=== PATIENT | female | born 1945 | race Asian ===

== ENCOUNTER 2017-08-28 10:08 | Emergency (ER) | payer OTHER, MEDICAID ==
[~2017-08-28] VITALS: Ht 167.6 cm; Wt 59.0 kg
[~2017-08-28 10:08] MED LIST: AMLO2.5T; CLOP75TA41; GABA-494 PO; NAPR375T3 PO; RALO60TA13 PO
[2017-08-28 11:06] VITALS: BP 133/74
[2017-08-28] MEDS ORDERED: KETOROLAC TROMETH 60MG/2ML VIAL IM ONE (11:15)
[2017-08-28] MEDS ORDERED: cefTRIAXone SOD 1,000 MG VL IM ONE (11:15)
== END 2017-08-28 11:28 | disposition home or self-care (01) ==
LOC: ER 10:08
DX: L03.211 Cellulitis of face (principal); K02.9 Dental caries, unspecified; I25.10 Atherosclerotic heart disease of native coronary artery without angina pectoris; I10 Essential (primary) hypertension; Z82.49 Family history of ischemic heart disease and other diseases of the circulatory system
CPT/HCPCS: 96372; 99284; J0696; J1885

== ENCOUNTER 2017-12-10 19:08 | Inpatient (IN) | payer OTHER, MEDICAID ==
[~2017-12-10] VITALS: Ht 152.4 cm; Wt 60.1 kg
[~2017-12-10 19:08] MED LIST changes: -GABA-494 PO; +GABA100C9 PO; +NAPR375T27 PO; -NAPR375T3 PO
[2017-12-10 20:09] LABS: Basophils # (auto) 0.1 uL; Basophils % (auto) 0.5 % (0.0-2.0); Eosinophils # (auto) 0.2 uL; Eosinophils % (auto) 1.4 % (0.0-7.0); Hematocrit 41.2 % (36.0-46.0); Hemoglobin 13.6 g/dL (12.2-16.2); Lymphocytes # (auto) 1.2 uL; Lymphocytes % (auto) 10.7 % (10.0-50.0); Mean Corpuscular Hemoglobin 32.9 pg (28.0-32.0); Mean Corpuscular Hgb Conc. 33.1 g/dL (32.0-36.0); Mean Corpuscular Volume 99.3 fL (80.0-100.0); Monocytes # (auto) 0.7 uL; Monocytes % (auto) 6.6 % (0.0-12.0); Neutrophils # (auto) 9.1 uL; Neutrophils % (auto) 80.8 % (37.0-80.0); Platelet Count (auto) 337 10^3/uL (140-450); Red Blood Cells 4.14 10^6/uL (4.0-5.20); Red Cell Distribution Width 15.6 % (11.8-14.3); White Blood Cell 11.2 10^3/uL (4.4-10.8)
[2017-12-10 20:24] LABS: Urine Bacteria NONE SEEN /hpf (None Seen); Urine Blood 3+ /uL (Negative); Urine WBC 67 /hpf (0 - 5)
[2017-12-10 20:24] LABS: Alanine Aminotransferase 21 U/L (13-56); Albumin 3.7 g/dL (3.4-5.0); Alkaline Phosphatase 97 U/L (45-117); Anion Gap 11 (5-15); Aspartate Aminotransferase 17 U/L (15-37); BUN/Creatinine Ratio 30.6; Bilirubin, Total 0.4 mg/dL (0.2-1.0); Blood Urea Nitrogen 26 mg/dL (7-18); Calcium 8.4 mg/dL (8.5-10.1); Carbon Dioxide 25 mmol/L (21-32); Chloride 105 mmol/L (98-107); GFR African American 85 mL/min; GFR Non-African American 70 mL/min; Glucose 178 mg/dL (74-106); Potassium 4.4 mmol/L (3.5-5.1); Sodium 141 mmol/L (136-145); Total Protein 8.1 g/dL (6.4-8.2)
[2017-12-11] MEDS ORDERED: SODIUM CHLORIDE 0.9% 1,000 ML IV ONE (07:41)
[2017-12-11] MEDS ORDERED: cefTRIAXone 1GM/10ml IVPUSH 10 ML IV ONE ×2 (07:45→11:00)
[2017-12-11] MEDS: SODIUM CHLORIDE 0.9% 1,000 ML IV SCH ×2 (10:53→21:43)
[2017-12-11] MEDS ORDERED: MORPHINE SULFATE 4 MG/ML SYR/VIAL IV PRN ×2 (11:00)
[2017-12-11] MEDS ORDERED: ALBUTEROL SULF 2.5 MG/0.5ML(0.5%) NEB SOLN NEB PRN (11:00)
[2017-12-11] MEDS ORDERED: NITROGLYCERIN 0.4 MG SL TAB SL PRN (11:00)
[2017-12-11] MEDS: FAMOTIDINE (10MG/ML) 2ML VL IV SCH ×2 (11:00→21:43)
[2017-12-11] MEDS ORDERED: ACETAMINOPHEN 500 MG TAB PO PRN (11:00)
[2017-12-11] MEDS ORDERED: TEMAZEPAM 15 MG CAP PO PRN (11:00)
[2017-12-11] MEDS ORDERED: DEXTROSE (50%) 50ML SYRG IV PRN (11:00)
[2017-12-11] MEDS ORDERED: HYDROcodone-ACET 5/325MG TAB PO PRN (11:00)
[2017-12-11] MEDS ORDERED: LORazepam 0.5 MG TAB PO PRN (11:00)
[2017-12-11] MEDS ORDERED: PROMETHAZINE HCL 25 MG/ML 1ML IV PRN (11:00)
[2017-12-11] MEDS: AZITHROMYCIN 500MG/ 250ML 250 ML IV SCH (11:07)
[2017-12-11] MEDS: InsuLIN REG 1unit/0.01ml Soln (100units/ml) SC SCH ×3 (11:30→21:44)
[2017-12-11] MEDS: ACCU-CHEK COMFORT CURVE STRIP VI SCH ×3 (11:30→21:44)
[2017-12-11 12:13] LABS: Partial Thromboplastin Time 23.3 sec (22.64-33.71); Prothrombin Time 10.9 sec (9.37-12.3)
[2017-12-11 14:46] VITALS: BP 131/96
[2017-12-11] MEDS ORDERED: PANTOPRAZOLE 40 MG TAB PO ONE (19:00)
[2017-12-11 20:30] VITALS: BP 157/92
[2017-12-11 21:56] VITALS: BP 157/92
[2017-12-12] MEDS ORDERED: ASPI81TA27 PO (00:15)
[2017-12-12] MEDS ORDERED: OMEP20CA74 PO (00:15)
[2017-12-12] MEDS ORDERED: METF-370 PO (00:15)
[2017-12-12 05:03] VITALS: BP 134/76
[2017-12-12] MEDS: SODIUM CHLORIDE 0.9% 1,000 ML IV SCH ×3 (06:25→13:30)
[2017-12-12] MEDS: ACCU-CHEK COMFORT CURVE STRIP VI SCH ×4 (06:25→21:50)
[2017-12-12] MEDS: InsuLIN REG 1unit/0.01ml Soln (100units/ml) SC SCH ×4 (06:25→21:54)
[2017-12-12 06:35] LABS: Basophils # (auto) 0 uL; Basophils % (auto) 0.9 % (0.0-2.0); Eosinophils # (auto) 0.1 uL; Eosinophils % (auto) 3.3 % (0.0-7.0); Hematocrit 37.8 % (36.0-46.0); Hemoglobin 12.7 g/dL (12.2-16.2); Lymphocytes # (auto) 1.2 uL; Lymphocytes % (auto) 25.8 % (10.0-50.0); Mean Corpuscular Hemoglobin 33.3 pg (28.0-32.0); Mean Corpuscular Hgb Conc. 33.6 g/dL (32.0-36.0); Mean Corpuscular Volume 99.1 fL (80.0-100.0); Monocytes # (auto) 0.5 uL; Monocytes % (auto) 10.4 % (0.0-12.0); Neutrophils # (auto) 2.7 uL; Neutrophils % (auto) 59.6 % (37.0-80.0); Nucleated Red Blood Cells % 0.2 %; Platelet Count (auto) 275 10^3/uL (140-450); Red Blood Cells 3.82 10^6/uL (4.0-5.20); Red Cell Distribution Width 15.3 % (11.8-14.3); White Blood Cell 4.5 10^3/uL (4.4-10.8)
[2017-12-12 06:49] LABS: BUN/Creatinine Ratio 22.1; Bilirubin, Total 0.9 mg/dL (0.2-1.0); Calcium 8.1 mg/dL (8.5-10.1); Potassium 3.9 mmol/L (3.5-5.1); Total Protein 6.7 g/dL (6.4-8.2)
[2017-12-12 09:00] VITALS: BP 130/82
[2017-12-12] MEDS: PANTOPRAZOLE 40 MG TAB PO SCH (09:40)
[2017-12-12] MEDS: cefTRIAXone 1GM/10ml IVPUSH 10 ML IV SCH (09:40)
[2017-12-12] MEDS: GABAPENTIN 300 MG CAP PO SCH (09:40)
[2017-12-12] MEDS: amLODIPine BESYLATE 5 MG TAB PO SCH (09:41)
[2017-12-12] MEDS: AZITHROMYCIN 500MG/ 250ML 250 ML IV SCH (09:42)
[2017-12-12] MEDS: RALOXIFENE HCL 60 MG TAB PO SCH (09:43)
[2017-12-12] MEDS: FAMOTIDINE (10MG/ML) 2ML VL IV SCH ×2 (10:13→21:48)
[2017-12-12 12:53] VITALS: BP 118/86
[2017-12-12 17:53] VITALS: BP 142/79
[2017-12-12 21:37] VITALS: BP 133/83
[2017-12-13] MEDS ORDERED: APIX5TAB PO (00:39)
[2017-12-13] MEDS: SODIUM CHLORIDE 0.9% 1,000 ML IV SCH (02:02)
[2017-12-13 05:00] VITALS: BP 121/69
[2017-12-13 05:31] LABS: Basophils # (auto) 0.1 uL; Basophils % (auto) 0.9 % (0.0-2.0); Eosinophils # (auto) 0.2 uL; Eosinophils % (auto) 2.6 % (0.0-7.0); Hematocrit 39.3 % (36.0-46.0); Hemoglobin 12.9 g/dL (12.2-16.2); Lymphocytes # (auto) 1.6 uL; Lymphocytes % (auto) 25.9 % (10.0-50.0); Mean Corpuscular Hemoglobin 32.6 pg (28.0-32.0); Mean Corpuscular Hgb Conc. 32.8 g/dL (32.0-36.0); Mean Corpuscular Volume 99.4 fL (80.0-100.0); Monocytes # (auto) 0.5 uL; Monocytes % (auto) 8.3 % (0.0-12.0); Neutrophils # (auto) 3.8 uL; Neutrophils % (auto) 62.3 % (37.0-80.0); Nucleated Red Blood Cells % 0.1 %; Platelet Count (auto) 275 10^3/uL (140-450); Red Blood Cells 3.96 10^6/uL (4.0-5.20); Red Cell Distribution Width 15.4 % (11.8-14.3); White Blood Cell 6.1 10^3/uL (4.4-10.8)
[2017-12-13 05:56] LABS: BUN/Creatinine Ratio 30.9; Calcium 8.5 mg/dL (8.5-10.1); Magnesium 2.4 mg/dL (1.6-2.6)
[2017-12-13] MEDS: ACCU-CHEK COMFORT CURVE STRIP VI SCH ×2 (06:38→11:30)
[2017-12-13] MEDS: InsuLIN REG 1unit/0.01ml Soln (100units/ml) SC SCH ×2 (06:38→11:30)
[2017-12-13 07:24] VITALS: BP 123/84
[2017-12-13] MEDS: amLODIPine BESYLATE 5 MG TAB PO SCH ×2 (10:00→10:30)
[2017-12-13] MEDS: FAMOTIDINE (10MG/ML) 2ML VL IV SCH (10:00)
[2017-12-13] MEDS: GABAPENTIN 300 MG CAP PO SCH (10:30)
[2017-12-13] MEDS: RALOXIFENE HCL 60 MG TAB PO SCH (10:31)
[2017-12-13] MEDS: cefTRIAXone 1GM/10ml IVPUSH 10 ML IV SCH (10:31)
[2017-12-13] MEDS: PANTOPRAZOLE 40 MG TAB PO SCH (10:31)
[2017-12-13] MEDS ORDERED: LEVO500T21 PO (11:16)
[2017-12-13] MEDS ORDERED: SACC250C PO (11:16)
[2017-12-13 11:42] VITALS: BP 123/84
[2017-12-13 13:34] VITALS: BP 153/87
== END 2017-12-13 14:28 | disposition home or self-care (01) | DRG 872 ==
LOC: ER 19:08 → TELE 19:09 → TELE-WESTW 12-11 19:54
PROVIDERS: ADMIT Internal Medicine; ATTEND Internal Medicine
DX: A41.51 Sepsis due to Escherichia coli [E. coli] (principal); E11.65 Type 2 diabetes mellitus with hyperglycemia; I48.91 Unspecified atrial fibrillation; N12 Tubulo-interstitial nephritis, not specified as acute or chronic; E78.5 Hyperlipidemia, unspecified; I25.10 Atherosclerotic heart disease of native coronary artery without angina pectoris; K21.9 Gastro-esophageal reflux disease without esophagitis; K59.01 Slow transit constipation; K57.30 Diverticulosis of large intestine without perforation or abscess without bleeding; R31.9 Hematuria, unspecified; F41.9 Anxiety disorder, unspecified; G47.00 Insomnia, unspecified; I11.9 Hypertensive heart disease without heart failure; I83.93 Asymptomatic varicose veins of bilateral lower extremities; Z82.49 Family history of ischemic heart disease and other diseases of the circulatory system; Z83.3 Family history of diabetes mellitus; Z79.82 Long term (current) use of aspirin; Z87.11 Personal history of peptic ulcer disease; Z79.899 Other long term (current) drug therapy
CPT/HCPCS: 36415; 71045; 71250; 74176; 76775; 80048; 80053; 81001; 82962; 83036; 83735; 84484; 85025; 85610; 85730; 87040; 87086; 87088; 87186; 93005; 94761; 96361; 96365; 96375; 97163; J1815; J3490

== ENCOUNTER 2019-06-24 10:14 | Emergency (ER) | payer OTHER, MEDICAID ==
[~2019-06-24] VITALS: Ht 162.6 cm; Wt 60.8 kg
[~2019-06-24 10:14] MED LIST changes: -AMLO2.5T; +AMLO2.5T7; +APIX5TAB PO; +ASPI-404 PO; -CLOP75TA41; +LEVO500T21 PO; +METF-370 PO; -NAPR375T27 PO; +OMEP20CA74 PO; +SACC250C PO
[2019-06-24 10:27] VITALS: BP 124/85
[2019-06-24] MEDS ORDERED: KETOROLAC TROMETH 60MG/2ML VIAL IM ONE (12:45)
[2019-06-24] MEDS ORDERED: IBUPROFEN 600 MG TAB PO ONE (12:45)
== END 2019-06-24 13:13 | disposition home or self-care (01) ==
LOC: ER 10:14
DX: M10.072 Idiopathic gout, left ankle and foot (principal); I25.10 Atherosclerotic heart disease of native coronary artery without angina pectoris; I10 Essential (primary) hypertension; Z79.82 Long term (current) use of aspirin; Z79.899 Other long term (current) drug therapy; Z79.84 Long term (current) use of oral hypoglycemic drugs
CPT/HCPCS: 73630

== ENCOUNTER 2019-09-26 11:14 | Emergency (ER) | payer OTHER, MEDICAID ==
[~2019-09-26] VITALS: Ht 162.6 cm; Wt 57.2 kg
[2019-09-26 11:52] LABS: Basophils # (auto) 0 uL; Basophils % (auto) 0.4 % (0.0-2.0); Eosinophils # (auto) 0 uL; Eosinophils % (auto) 0.4 % (0.0-7.0); Hematocrit 39.2 % (36.0-46.0); Hemoglobin 13.2 g/dL (12.2-16.2); Lymphocytes # (auto) 0.8 uL; Lymphocytes % (auto) 14.7 % (10.0-50.0); Mean Corpuscular Hemoglobin 33.5 pg (28.0-32.0); Mean Corpuscular Hgb Conc. 33.6 g/dL (32.0-36.0); Mean Corpuscular Volume 99.7 fL (80.0-100.0); Monocytes # (auto) 0.2 uL; Neutrophils # (auto) 4.3 uL; Neutrophils % (auto) 80.5 % (37.0-80.0); Platelet Count (auto) 254 10^3/uL (140-450); Red Blood Cells 3.93 10^6/uL (4.0-5.20); Red Cell Distribution Width 15.7 % (11.8-14.3); White Blood Cell 5.3 10^3/uL (4.4-10.8)
[2019-09-26 12:08] LABS: Albumin 3.7 g/dL (3.4-5.0); Anion Gap 8 (5-15); Blood Urea Nitrogen 15 mg/dL (7-18); Calcium 8.5 mg/dL (8.5-10.1); Carbon Dioxide 23 mmol/L (21-32); Chloride 110 mmol/L (98-107); Glucose 204 mg/dL (74-106); Potassium 3.6 mmol/L (3.5-5.1); Sodium 141 mmol/L (136-145)
[2019-09-26 12:12] LABS: INR 1.03 (0.9-1.15); Partial Thromboplastin Time 23.3 sec (23.64-32.05)
[2019-09-26 12:13] LABS: Alanine Aminotransferase 19 U/L (13-56); Alkaline Phosphatase 59 U/L (45-117); Aspartate Aminotransferase 14 U/L (15-37); Bilirubin, Total 0.8 mg/dL (0.2-1.0); GFR African American 91 mL/min; GFR Non-African American 76 mL/min; Total Protein 7.7 g/dL (6.4-8.2)
[2019-09-26 12:47] LABS: Urine Bacteria NONE SEEN /hpf (None Seen); Urine Blood TRACE /uL (Negative); Urine Specific Gravity 1.005 (1.001-1.035); Urine WBC 1 /hpf (0 - 5)
[2019-09-26] MEDS ORDERED: SODIUM CHLORIDE 0.9% 500 ML IVB ONE (15:30)
[2019-09-26] MEDS ORDERED: SODIUM CHLORIDE 0.9% 1,000 ML IV ONE (15:30)
[2019-09-26 15:39] VITALS: BP 156/90
[2019-09-26] MEDS ORDERED: MECLIZINE HCL 25 MG TAB PO ONE (16:30)
== END 2019-09-26 17:22 | disposition home or self-care (01) ==
LOC: EDUNIT# 11:14 → ER 11:14
DX: I48.91 Unspecified atrial fibrillation (principal); R42 Dizziness and giddiness; E11.65 Type 2 diabetes mellitus with hyperglycemia; K21.9 Gastro-esophageal reflux disease without esophagitis; I10 Essential (primary) hypertension
CPT/HCPCS: 36415; 70450; 71046; 80053; 81001; 82962; 83735; 84443; 84484; 85025; 85610; 85730; 93005; 96360

== ENCOUNTER 2019-10-10 12:56 | Emergency (ER) | payer OTHER, MEDICAID ==
[~2019-10-10] VITALS: Ht 160 cm; Wt 54.4 kg
[2019-10-10 13:39] VITALS: BP 145/85
[2019-10-10] MEDS ORDERED: ACETAMINOPHEN 500 MG TAB PO ONE (15:45)
== END 2019-10-10 16:05 | disposition home or self-care (01) ==
LOC: ER 12:56
DX: S16.1XXA Strain of muscle, fascia and tendon at neck level, initial encounter (principal); M47.892 Other spondylosis, cervical region; E11.9 Type 2 diabetes mellitus without complications; I10 Essential (primary) hypertension; X58.XXXA Exposure to other specified factors, initial encounter; Y93.89 Activity, other specified; Y99.8 Other external cause status; Y92.89 Other specified places as the place of occurrence of the external cause
CPT/HCPCS: 72040

== ENCOUNTER 2020-12-31 13:07 | Emergency (ER) | payer OTHER, MEDICAID ==
[~2020-12-31] VITALS: Ht 152.4 cm; Wt 59.0 kg
[~2020-12-31 13:07] MED LIST changes: +AMLO-483; -AMLO2.5T7; -ASPI-404 PO; +ASPI-543 PO; -LEVO500T21 PO; +LEVO500T31 PO
[2020-12-31 13:08] VITALS: BP 163/93
[2020-12-31] MEDS ORDERED: traMADol HCL 50 MG TAB PO ONE (14:45)
== END 2020-12-31 15:04 | disposition home or self-care (01) ==
LOC: ER 13:07
DX: G24.3 Spasmodic torticollis (principal); M50.320 Other cervical disc degeneration, mid-cervical region, unspecified level; E11.9 Type 2 diabetes mellitus without complications; K21.9 Gastro-esophageal reflux disease without esophagitis; I10 Essential (primary) hypertension
CPT/HCPCS: 72040

== ENCOUNTER 2021-06-26 10:09 | Emergency (ER) | payer OTHER, MEDICAID ==
[~2021-06-26] VITALS: Ht 165.1 cm; Wt 56.7 kg
[2021-06-26 12:20] VITALS: BP 161/94
[2021-06-26] MEDS ORDERED: ONDANSETRON ODT 4 MG TAB PO ONE (13:00)
[2021-06-26] MEDS ORDERED: TETANUS-DIPTH-ACEL PERTUSSIS 0.5ML SYR Tdap IM ONE (13:00)
[2021-06-26] MEDS ORDERED: ACETAMINOPHEN/CODEINE#3 (300/30mg) TAB PO ONE (13:00)
[2021-06-26] MEDS ORDERED: cefTRIAXone SOD 1,000 MG VL IM ONE (13:00)
[2021-06-26] MEDS ORDERED: LIDOCAINE 1% HCL (LOCAL ANESTH.) INJ 20ML MDV ONE (13:23)
== END 2021-06-26 13:59 | disposition home or self-care (01) ==
LOC: ER 10:09
DX: L03.114 Cellulitis of left upper limb (principal); E11.9 Type 2 diabetes mellitus without complications; K21.9 Gastro-esophageal reflux disease without esophagitis; I10 Essential (primary) hypertension; Z79.82 Long term (current) use of aspirin; Z79.899 Other long term (current) drug therapy
CPT/HCPCS: 73110; 73130; 73200; 90471; 90715; 96372; 99284; J0696; J2001; Q0162

== ENCOUNTER 2022-10-17 10:10 | Emergency (ER) | payer OTHER, MEDICAID ==
[~2022-10-17] VITALS: Ht 160 cm; Wt 58.1 kg
[2022-10-17 16:27] VITALS: BP 163/94
[2022-10-17] MEDS ORDERED: HYDR-4902 PO (16:35)
== END 2022-10-17 16:32 | disposition home or self-care (01) ==
LOC: ER 10:10
DX: M16.11 Unilateral primary osteoarthritis, right hip (principal); K59.00 Constipation, unspecified; E11.9 Type 2 diabetes mellitus without complications; K21.9 Gastro-esophageal reflux disease without esophagitis; I10 Essential (primary) hypertension
CPT/HCPCS: 72192; 82962

== ENCOUNTER 2023-01-25 13:52 | Emergency (ER) | payer OTHER, MEDICAID ==
[~2023-01-25] VITALS: Ht 167.6 cm; Wt 62.0 kg
[~2023-01-25 13:52] MED LIST changes: +HYDR-4902 PO
[2023-01-25] MEDS ORDERED: HYDROcodone-ACET 10/325MG TAB PO ONE (14:30)
[2023-01-25] MEDS ORDERED: ACET-1158 PO (15:41)
[2023-01-25 19:05] VITALS: BP 146/81
== END 2023-01-25 19:07 | disposition home or self-care (01) ==
LOC: ER 13:52
DX: M47.816 Spondylosis without myelopathy or radiculopathy, lumbar region (principal); M16.12 Unilateral primary osteoarthritis, left hip; I10 Essential (primary) hypertension; E11.9 Type 2 diabetes mellitus without complications; K21.9 Gastro-esophageal reflux disease without esophagitis; Z79.82 Long term (current) use of aspirin; Z79.899 Other long term (current) drug therapy
CPT/HCPCS: 73502

== ENCOUNTER 2023-09-10 13:38 | Inpatient (IN) | payer OTHER, MEDICAID ==
[~2023-09-10] VITALS: Ht 157.5 cm; Wt 60.3 kg
[~2023-09-10 13:38] MED LIST changes: +ACET500T58 PO; -AMLO-483; +AMLO1TAB21; +GABA-1308 PO; -GABA100C9 PO; -RALO60TA13 PO; +RALO60TA14 PO
[2023-09-10 14:58] LABS: Basophils # (auto) 0.1 10 ^3/uL (0-0.2); Eosinophils # (auto) 0 10 ^3/uL (0-0.8); Eosinophils % (auto) 0.5 % (0.0-7.0); Hemoglobin 12.2 g/dL (12.2-16.2); Lymphocytes # (auto) 0.9 10 ^3/uL (0.4-5.4); Lymphocytes % (auto) 10.8 % (10.0-50.0); Mean Corpuscular Hemoglobin 32.8 pg (28.0-32.0); Mean Corpuscular Hgb Conc. 32.8 g/dL (32.0-36.0); Monocytes # (auto) 0.6 10 ^3/uL (0-1.3); Monocytes % (auto) 6.9 % (0.0-12.0); Neutrophils # (auto) 6.4 10 ^3/uL (1.6-8.6); Neutrophils % (auto) 80.8 % (37.0-80.0); Nucleated Red Blood Cells % 0.1 %; Red Cell Distribution Width 15.5 % (11.8-14.3); White Blood Cell 7.9 10^3/uL (4.4-10.8)
[2023-09-10 15:11] LABS: INR 1.02 (0.9-1.15); Partial Thromboplastin Time 22.1 SEC (24.5-34.5); Prothrombin Time 10.7 sec (9.3-11.8)
[2023-09-10 15:14] LABS: Alanine Aminotransferase 13 U/L (7-40); Albumin 4.1 g/dL (3.2-4.8); Alkaline Phosphatase 53 U/L (46-116); Anion Gap 11 (5-15); Aspartate Aminotransferase 16 U/L (13-40); Bilirubin, Total 0.6 mg/dL (0.2-1.0); Blood Urea Nitrogen 24 mg/dL (9-23); Calcium 9.5 mg/dL (8.5-10.1); Carbon Dioxide 23 mmol/L (20-30); Chloride 103 mmol/L (98-107); Glucose 311 mg/dL (74-106); Potassium 4.4 mmol/L (3.5-5.1); Sodium 137 mmol/L (136-145); Total Protein 6.9 g/dL (5.7-8.2)
[2023-09-10 15:41] LABS: Magnesium 1.8 mg/dL (1.6-2.6)
[2023-09-10] MEDS ORDERED: DEXTROSE (50%) 50ML SYRG IV PRN ×2 (21:45→23:15)
[2023-09-10] MEDS ORDERED: ONDANSETRON HCL 4 MG/2 ML VIAL IV PRN ×2 (21:45→23:15)
[2023-09-10] MEDS ORDERED: ACETAMINOPHEN 325 MG TAB PO PRN ×2 (21:45→23:15)
[2023-09-10] MEDS ORDERED: APIXABAN 5 MG TAB PO SCH (22:00)
[2023-09-10] MEDS ORDERED: HYDROcodone-ACET 5/325MG TAB PO PRN (23:15)
[2023-09-10] MEDS ORDERED: ENOXAPARIN SOD 60 MG/0.6 ML SYRINGE SC SCH (23:30)
[2023-09-11] VITALS (7 sets, daily range): BP systolic 130–157; BP diastolic 75–103; PULSE 79–100; RESP 16–19; TEMP 96.9–98.5; O2SAT 95–100
[2023-09-11] MEDS ORDERED: ACCU-CHEK COMFORT CURVE STRIP VI SCH
[2023-09-11] MEDS ORDERED: InsuLIN REG 1unit/0.01ml Soln (100units/ml) SC SCH
[2023-09-11] MEDS ORDERED: ENOXAPARIN SOD 60 MG/0.6 ML SYRINGE SC ONE (02:33)
[2023-09-11] MEDS ORDERED: METF-370 PO (03:20)
[2023-09-11] MEDS: InsuLIN REG 1unit/0.01ml Soln (100units/ml) SC SCH ×4 (06:44→22:51)
[2023-09-11] MEDS: ACCU-CHEK COMFORT CURVE STRIP VI SCH ×4 (06:45→22:00)
[2023-09-11 09:06] LABS: Basophils # (auto) 0.1 10 ^3/uL (0-0.2); Basophils % (auto) 1.7 % (0.0-2.0); Eosinophils # (auto) 0.2 10 ^3/uL (0-0.8); Eosinophils % (auto) 2.8 % (0.0-7.0); Hematocrit 37.4 % (36.0-46.0); Hemoglobin 12.3 g/dL (12.2-16.2); Lymphocytes # (auto) 1.2 10 ^3/uL (0.4-5.4); Lymphocytes % (auto) 19.7 % (10.0-50.0); Mean Corpuscular Hemoglobin 32.5 pg (28.0-32.0); Mean Corpuscular Volume 98.6 fL (80.0-100.0); Monocytes # (auto) 0.7 10 ^3/uL (0-1.3); Monocytes % (auto) 10.7 % (0.0-12.0); Neutrophils % (auto) 65.1 % (37.0-80.0); Nucleated Red Blood Cells % 0.2 %; Red Blood Cells 3.79 10^6/uL (4.0-5.20); Red Cell Distribution Width 15.3 % (11.8-14.3); White Blood Cell 6.2 10^3/uL (4.4-10.8)
[2023-09-11] MEDS ORDERED: amLODIPine BESYLATE 5 MG TAB PO SCH ×3 (10:00→10:21)
[2023-09-11] MEDS ORDERED: ASPirin 81 mg TAB PO SCH (10:00)
[2023-09-11 10:05] LABS: Alanine Aminotransferase 10 U/L (7-40); Albumin 3.8 g/dL (3.2-4.8); Alkaline Phosphatase 51 U/L (46-116); Anion Gap 9 (5-15); Aspartate Aminotransferase < 8 U/L (13-40); BUN/Creatinine Ratio 19.2 (10.0-20.0); Blood Urea Nitrogen 14 mg/dL (9-23); Calcium 9.1 mg/dL (8.5-10.1); Carbon Dioxide 25 mmol/L (20-30); Chloride 107 mmol/L (98-107); Glucose 217 mg/dL (74-106); Potassium 3.9 mmol/L (3.5-5.1); Sodium 141 mmol/L (136-145)
[2023-09-11 10:06] LABS: Bilirubin, Total 0.8 mg/dL (0.2-1.0); Total Protein 6.6 g/dL (5.7-8.2)
[2023-09-11] MEDS: ENOXAPARIN SOD 60 MG/0.6 ML SYRINGE SC SCH ×3 (10:22→22:54)
[2023-09-11] MEDS ORDERED: ceFAZolin 2 GM/D5W100ml 100 ML IV ONE (18:05)
[2023-09-11] MEDS ORDERED: fentaNYL CITRATE 100 MCG/2 ML VL ONE (18:38)
[2023-09-11] MEDS ORDERED: MIDAZOLAM HCL 2MG/2ML 2ml VIAL (1mg/ml) ONE (18:38)
[2023-09-11] MEDS ORDERED: HEPARIN SODIUM (PORCINE) 5000 UNITS/ML 1ML VIAL ONE (18:57)
[2023-09-11] MEDS ORDERED: MIDAZOLAM HCL 2MG/2ML 2ml VIAL (1mg/ml) IV PRN (19:15)
[2023-09-11] MEDS ORDERED: LABETALOL HCL 5 MG/ML 4ML SYRINGE IV PRN (19:15)
[2023-09-11] MEDS ORDERED: ACCU-CHEK COMFORT CURVE STRIP VI ONE (19:15)
[2023-09-11] MEDS ORDERED: MORPHINE SULFATE 4 MG/ML SYR/VIAL IV PRN (19:15)
[2023-09-11] MEDS ORDERED: ePHEDrine SULFATE 50 MG/ML AMP IV PRN (19:15)
[2023-09-11] MEDS ORDERED: ONDANSETRON HCL 4 MG/2 ML VIAL IV PRN (19:15)
[2023-09-11] MEDS ORDERED: IOHEXOL 300 MG/ML 100ML BOTTLE IJ ONE (19:25)
[2023-09-11] MEDS ORDERED: DexAMETHasone SOD PHOS 10MG/1ML VIAL INJ ONE (20:17)
[2023-09-11] MEDS: HYDROmorphone HCL 2 MG/ML VL/or syr IV PRN ×3 (20:45→21:28)
[2023-09-11] MEDS: METOPROLOL TARTRATE 25 MG TAB PO SCH (22:58)
[2023-09-12] VITALS (7 sets, daily range): BP systolic 101–169; BP diastolic 69–85; PULSE 74–89; RESP 16–18; TEMP 96.9–99.2; O2SAT 92–99
[2023-09-12] MEDS: hydrALAZINE HCL 20 MG/ML VL IV PRN (04:43)
[2023-09-12] MEDS: InsuLIN REG 1unit/0.01ml Soln (100units/ml) SC SCH ×4 (06:29→21:25)
[2023-09-12] MEDS: ACCU-CHEK COMFORT CURVE STRIP VI SCH ×4 (06:32→21:33)
[2023-09-12] MEDS: OXYCODONE W/ ACETAMINOPHEN 5/325MG TABLET PO PRN (11:20)
[2023-09-12] MEDS: METOPROLOL TARTRATE 25 MG TAB PO SCH ×2 (11:20→21:28)
[2023-09-12] MEDS: ENOXAPARIN SOD 60 MG/0.6 ML SYRINGE SC SCH ×2 (11:21→21:27)
[2023-09-13 05:00] VITALS: BP 131/59; PULSE 70; RESP 16; TEMP 98.1; O2SAT 98
[2023-09-13] MEDS: InsuLIN REG 1unit/0.01ml Soln (100units/ml) SC SCH ×4 (06:47→21:58)
[2023-09-13] MEDS: ACCU-CHEK COMFORT CURVE STRIP VI SCH ×4 (06:47→21:59)
[2023-09-13 08:00] VITALS: BP 147/76; PULSE 64; PULSE 71; RESP 20; TEMP 98.4; O2SAT 98
[2023-09-13] MEDS: ENOXAPARIN SOD 60 MG/0.6 ML SYRINGE SC SCH ×2 (09:58→21:58)
[2023-09-13] MEDS: METOPROLOL TARTRATE 25 MG TAB PO SCH ×2 (09:59→21:57)
[2023-09-13] MEDS: OXYCODONE W/ ACETAMINOPHEN 5/325MG TABLET PO PRN ×2 (09:59→22:06)
[2023-09-13] MEDS: hydrALAZINE HCL 20 MG/ML VL IV PRN (11:51)
[2023-09-13 12:00] VITALS: BP 179/88; PULSE 103; PULSE 64; RESP 18; TEMP 100.5; O2SAT 99
[2023-09-13 16:00] VITALS: BP 101/60; PULSE 84; RESP 20; TEMP 97.5; O2SAT 97
[2023-09-13 20:00] VITALS: BP 136/68; PULSE 77; RESP 16; TEMP 98.4
[2023-09-13 21:51] VITALS: BP 136/68; PULSE 77; RESP 16; TEMP 98.4; O2SAT 99
[2023-09-14 05:00] VITALS: BP 145/75; PULSE 77; RESP 16; TEMP 97.9; O2SAT 100
[2023-09-14] MEDS: InsuLIN REG 1unit/0.01ml Soln (100units/ml) SC SCH ×4 (06:34→22:00)
[2023-09-14] MEDS: ACCU-CHEK COMFORT CURVE STRIP VI SCH ×4 (06:35→22:21)
[2023-09-14 08:00] VITALS: BP 136/70; PULSE 79; PULSE 85; RESP 16; TEMP 98.2; TEMP 99.2; O2SAT 99
[2023-09-14] MEDS: METOPROLOL TARTRATE 25 MG TAB PO SCH ×2 (08:25→22:20)
[2023-09-14] MEDS: OXYCODONE W/ ACETAMINOPHEN 5/325MG TABLET PO PRN ×2 (08:25→22:20)
[2023-09-14] MEDS: APIXABAN 5 MG TAB PO SCH ×2 (10:25→22:19)
[2023-09-14 12:48] VITALS: BP 139/75; PULSE 69; RESP 16; TEMP 98.1; O2SAT 97
[2023-09-14 20:00] VITALS: BP 136/68; PULSE 77; PULSE 87; PULSE 89; RESP 16; TEMP 98.4
[2023-09-14 22:00] VITALS: BP 142/93; PULSE 82; RESP 17; TEMP 98.6; O2SAT 95
[2023-09-15 05:00] VITALS: BP 148/74; PULSE 79; RESP 17; TEMP 98.3; O2SAT 91
[2023-09-15] MEDS: ACCU-CHEK COMFORT CURVE STRIP VI SCH ×3 (06:08→17:00)
[2023-09-15] MEDS: InsuLIN REG 1unit/0.01ml Soln (100units/ml) SC SCH ×3 (06:09→17:00)
[2023-09-15] MEDS: OXYCODONE W/ ACETAMINOPHEN 5/325MG TABLET PO PRN ×2 (06:26→12:50)
[2023-09-15 08:00] VITALS: BP 146/68; PULSE 63; PULSE 66; RESP 19; TEMP 98; O2SAT 94
[2023-09-15 09:09] VITALS: BP 146/68; PULSE 63; RESP 19; TEMP 98; O2SAT 94
[2023-09-15] MEDS: METOPROLOL TARTRATE 25 MG TAB PO SCH (09:32)
[2023-09-15] MEDS: APIXABAN 5 MG TAB PO SCH (09:32)
[2023-09-15] MEDS ORDERED: APIX5TAB PO (09:55)
[2023-09-15 13:35] VITALS: BP 165/92; PULSE 99; RESP 21; TEMP 99.5; O2SAT 95
[2023-09-15 13:49] VITALS: BP 165/92; PULSE 90; RESP 21; TEMP 99.5; O2SAT 95
== END 2023-09-15 17:33 | disposition home or self-care (01) | DRG 254 ==
LOC: ER 13:38 → UNDOADMIN 21:40 → OVERFLOW 21:40 → CENTRAL 22:06 → OVERFLOW 23:20 → CENTRAL 09-11 02:58 → EAST 09-11 22:00 → TELE-EAST 09-11 23:45
PROVIDERS: ADMIT Nurse Practitioner; ATTEND Family Medicine
PROC: B34HZZZ Ultrasonography of Right Upper Extremity Arteries (ICD-10-PCS; 2023-09-11)
PROC: 03C70ZZ Extirpation of Matter from Right Brachial Artery, Open Approach (ICD-10-PCS; principal; 2023-09-11 19:12)
DX: I74.2 Embolism and thrombosis of arteries of the upper extremities (principal); E11.9 Type 2 diabetes mellitus without complications; I10 Essential (primary) hypertension; M79.601 Pain in right arm; E78.5 Hyperlipidemia, unspecified; K21.9 Gastro-esophageal reflux disease without esophagitis; E11.65 Type 2 diabetes mellitus with hyperglycemia; Z87.11 Personal history of peptic ulcer disease; Z79.84 Long term (current) use of oral hypoglycemic drugs; Z83.3 Family history of diabetes mellitus; Z82.49 Family history of ischemic heart disease and other diseases of the circulatory system; Z79.82 Long term (current) use of aspirin
CPT/HCPCS: 36415; 70450; 72125; 80053; 82962; 83735; 83880; 84484; 85025; 85610; 85730; 93005; 93306; 93971; G0378; J1100; J1642; J1815; J2250; J2405

== ENCOUNTER 2023-10-26 12:20 | Emergency (ER) | payer OTHER, MEDICAID ==
[~2023-10-26] VITALS: Ht 165.1 cm; Wt 54.5 kg
[2023-10-26] MEDS ORDERED: ONDANSETRON ODT 4 MG TAB PO ONE (14:15)
[2023-10-26] MEDS ORDERED: HYDROcodone-ACET 10/325MG TAB PO ONE (14:15)
[2023-10-26 15:01] LABS: Basophils # (auto) 0 10 ^3/uL (0-0.2); Basophils % (auto) 0.4 % (0.0-2.0); Eosinophils # (auto) 0 10 ^3/uL (0-0.8); Eosinophils % (auto) 0.2 % (0.0-7.0); Hematocrit 33.9 % (36.0-46.0); Hemoglobin 11.1 g/dL (12.2-16.2); Lymphocytes # (auto) 0.8 10 ^3/uL (0.4-5.4); Lymphocytes % (auto) 8.8 % (10.0-50.0); Mean Corpuscular Hemoglobin 31.4 pg (28.0-32.0); Mean Corpuscular Hgb Conc. 32.6 g/dL (32.0-36.0); Mean Corpuscular Volume 96.2 fL (80.0-100.0); Monocytes # (auto) 0.7 10 ^3/uL (0-1.3); Monocytes % (auto) 7.6 % (0.0-12.0); Neutrophils # (auto) 7.7 10 ^3/uL (1.6-8.6); Nucleated Red Blood Cells % 0.1 %; Red Blood Cells 3.53 10^6/uL (4.0-5.20); Red Cell Distribution Width 15.6 % (11.8-14.3); White Blood Cell 9.3 10^3/uL (4.4-10.8)
[2023-10-26 15:16] LABS: INR 1.09 (0.9-1.15); Partial Thromboplastin Time 30.3 SEC (24.5-34.5); Prothrombin Time 11.4 sec (9.3-11.8)
[2023-10-26 15:25] LABS: Alanine Aminotransferase 10 U/L (7-40); Albumin 3.8 g/dL (3.2-4.8); Alkaline Phosphatase 43 U/L (46-116); Anion Gap 9 (5-15); Aspartate Aminotransferase 13 U/L (13-40); BUN/Creatinine Ratio 31.5 (10.0-20.0); Blood Urea Nitrogen 23 mg/dL (9-23); Calcium 9.1 mg/dL (8.7-10.4); Carbon Dioxide 24 mmol/L (20-30); Chloride 105 mmol/L (98-107); Glucose 172 mg/dL (74-106); Lipase 56 U/L (12-53); Magnesium 1.6 mg/dL (1.6-2.6); Sodium 138 mmol/L (136-145)
[2023-10-26 15:26] LABS: Bilirubin, Total 0.7 mg/dL (0.2-1.0); Total Protein 6.7 g/dL (5.7-8.2)
[2023-10-26 15:44] LABS: Urine Epithelial Cast None Seen /hpf (<5)
[2023-10-26 15:55] LABS: Urine Bacteria NONE SEEN /hpf (None Seen); Urine Blood 1+ /uL (Negative); Urine Clarity Clear (Clear); Urine Color Yellow (Yellow); Urine Hyaline Cast FEW /lpf (0 - 2); Urine Mucus FEW (None Seen); Urine Protein, UAD 2+ (Negative); Urine Specific Gravity 1.025 (1.001-1.035); Urine WBC 8 /hpf (0 - 5)
[2023-10-26] MEDS ORDERED: cefTRIAXone SOD 1,000 MG VL IM ONE (21:45)
[2023-10-26] MEDS ORDERED: CYCL-837 PO (22:50)
[2023-10-26] MEDS ORDERED: ACET-1304 PO (22:50)
[2023-10-26] MEDS ORDERED: CEPH250C PO (22:50)
[2023-10-26 23:01] VITALS: BP 145/67; PULSE 100; RESP 17; TEMP 98.3; O2SAT 94
== END 2023-10-26 23:13 | disposition home or self-care (01) ==
LOC: ER 12:20
DX: M54.50 Low back pain, unspecified (principal); E11.9 Type 2 diabetes mellitus without complications; I10 Essential (primary) hypertension; R94.31 Abnormal electrocardiogram [ECG] [EKG]; Z79.899 Other long term (current) drug therapy; Z79.01 Long term (current) use of anticoagulants
CPT/HCPCS: 36415; 71045; 74176; 80053; 81001; 83605; 83690; 83735; 83880; 84484; 85025; 85610; 85730; 87086; 93005; 96372; 99285; J0696; Q0162

== ENCOUNTER 2023-11-12 11:35 | Emergency (ER) | payer OTHER, MEDICAID ==
[~2023-11-12] VITALS: Ht 165.1 cm; Wt 68.0 kg
[~2023-11-12 11:35] MED LIST changes: +ACET-1304 PO; +CEPH250C PO; +CYCL-837 PO
[2023-11-12 12:58] LABS: Albumin 3.9 g/dL (3.2-4.8); Alkaline Phosphatase 45 U/L (46-116); Anion Gap 8 (5-15); Aspartate Aminotransferase 15 U/L (13-40); BUN/Creatinine Ratio 17.4 (10.0-20.0); Bilirubin, Total 1.1 mg/dL (0.2-1.0); Blood Urea Nitrogen 12 mg/dL (9-23); Calcium 9.2 mg/dL (8.5-10.1); Carbon Dioxide 23 mmol/L (20-30); Chloride 104 mmol/L (98-107); Glucose 210 mg/dL (74-106); Potassium 3.3 mmol/L (3.5-5.1); Sodium 135 mmol/L (136-145); Total Protein 7.1 g/dL (5.7-8.2)
[2023-11-12 13:00] LABS: Basophils # (auto) 0 10 ^3/uL (0-0.2); Basophils % (auto) 0.4 % (0.0-2.0); Eosinophils # (auto) 0 10 ^3/uL (0-0.8); Eosinophils % (auto) 0.1 % (0.0-7.0); Hematocrit 32.6 % (36.0-46.0); Hemoglobin 10.7 g/dL (12.2-16.2); Lymphocytes # (auto) 0.6 10 ^3/uL (0.4-5.4); Lymphocytes % (auto) 6.9 % (10.0-50.0); Mean Corpuscular Hemoglobin 31.3 pg (28.0-32.0); Mean Corpuscular Hgb Conc. 32.7 g/dL (32.0-36.0); Mean Corpuscular Volume 95.7 fL (80.0-100.0); Monocytes # (auto) 0.7 10 ^3/uL (0-1.3); Monocytes % (auto) 8.3 % (0.0-12.0); Neutrophils # (auto) 7.1 10 ^3/uL (1.6-8.6); Neutrophils % (auto) 84.3 % (37.0-80.0); Nucleated Red Blood Cells % 0.1 %; Red Blood Cells 3.41 10^6/uL (4.0-5.20); Red Cell Distribution Width 16.3 % (11.8-14.3); White Blood Cell 8.4 10^3/uL (4.4-10.8)
[2023-11-12 13:01] LABS: Alanine Aminotransferase < 9 U/L (7-40)
[2023-11-12 13:04] LABS: INR 1.19 (0.9-1.15); Prothrombin Time 12.4 sec (9.3-11.8)
[2023-11-12] MEDS ORDERED: POTA-228 PO (13:07)
[2023-11-12] MEDS ORDERED: ACET500T58 PO (13:11)
[2023-11-12] MEDS ORDERED: POTASSIUM EFFERVESENT TAB 25 MEQ PO ONE (13:15)
[2023-11-12 13:29] VITALS: BP 151/82; PULSE 104; RESP 18; O2SAT 95
[2023-11-12] MEDS ORDERED: CYCLOBENZAPRINE HCL 10 MG TAB PO ONE (13:45)
[2023-11-12 13:49] LABS: Urine Bacteria NONE SEEN /hpf (None Seen); Urine Blood 1+ /uL (Negative); Urine Clarity Clear (Clear); Urine Color Yellow (Yellow); Urine Protein, UAD 2+ (Negative); Urine Urobilinogen Normal (Negative); Urine WBC 1 /hpf (0 - 5); Urine pH 6.5 (5.0-8.0)
[2023-11-12] MEDS ORDERED: MAGN84TA4 PO (14:10)
== END 2023-11-12 14:02 | disposition home or self-care (01) ==
LOC: ER 11:35
DX: M54.2 Cervicalgia (principal); R51.9 Headache, unspecified; E87.6 Hypokalemia; E11.9 Type 2 diabetes mellitus without complications; K21.9 Gastro-esophageal reflux disease without esophagitis; I10 Essential (primary) hypertension; Z79.01 Long term (current) use of anticoagulants
CPT/HCPCS: 36415; 70450; 72125; 80053; 81001; 83735; 85025; 85610; 93886

== ENCOUNTER 2025-01-26 12:32 | Inpatient (IN) | payer OTHER, MEDICAID ==
[~2025-01-26] VITALS: Ht 165.1 cm; Wt 47.8 kg
[~2025-01-26 12:32] MED LIST changes: -AMLO1TAB21; +AMLO1TAB21 PO; +MAGN84TA4 PO; +OMEP-448 PO; +POTA-228 PO
--- NOTE | 2025-01-26 12:56 | ED.PDOC ---
SOB-HPI HPI Comments 79 year old female presents to the ED with a chief complaint of shortness of breath onset last night (01/25/25). Patient's daughter states patient was experiencing shortness of breath and noticed "neck was expanding." Daughter also noticed patient has been making a "whistling" sound intermittently for the past week. 2 days ago, patient began experiencing some bruising with rash RT LT side back. PMHx GERD, HTN,a-fib, arthritis, DM. Denies chest pain, cough, congestion, fever, chills, headache, dizziness, nausea, vomiting, diarrhea. No other symptoms or modifying factors present at this time. Time Seen by MD: 12:50 Primary Care Provider: ELIDA Reviewed notes: Medications, Allergies Information Source: Patient, Relative Mode of Arrival: Ambulatory Severity: Moderate Timing: Days Duration: Since onset Context: At Rest PE Risk Factors: None History of: None Prehospital treatment: None Modifying Factors: Nothing Associated Signs and Symptoms: None Past Medical History PAST MEDICAL HISTORY: AFIB, Arthritis, DM, GERD, HTN Surgical History: Denies all surgeries CERTIFIED PHYSICIAN ASSISTANT History: No Pertinent CERTIFIED PHYSICIAN ASSISTANT History Family History Family History: Reviewed,noncontributory to illness, Unknown Social History Smoker: Non-Smoker Alcohol: Denies ETOH Use Drugs: Denies Drug Use Lives In: Home Constitutional: denies: chills, diaphoresis, fatigue, fever, malaise, sweats, weakness, others EENTM: denies: blurred vision, double vision, ear bleeding, ear discharge, ear drainage, ear pain, ear ringing, eye pain, eye redness, hearing loss, mouth pain, mouth swelling, nasal discharge, nose bleeding, nose congestion, nose pain, photophobia, tearing, throat pain, throat swelling, voice changes, others Respiratory: reports: shortness of breath, others (whistling); denies: cough, hemoptysis, orthopnea, SOB at rest, SOB with excertion, stridor, wheezing Cardiovascular: denies: chest pain, dizzy spells, diaphoresis, Dyspnea on exertion, edema, irregular heart beat, left arm pain, lightheadedness, palpitations, PND, syncope, others Gastrointestinal: denies: abdomen distended, abdominal pain, blood streaked bowels, constipated, diarrhea, dysphagia, difficulty swallowing, hematemesis, melena, nausea, poor appetite, poor fluid intake, rectal bleeding, rectal pain, vomiting, others Genitourinary: denies: abnormal vagina bleeding, burning, dyspareunia, dysuria, flank pain, frequency, hematuria, incontinence, pain, , vagina discharge, urgency, others Neurological: denies: dizziness, fainting, headache, left sided numbness, left sided weakness, numbness, paresthesia, pre-existing deficit, right sided numbness, right sided weakness, seizure, speech problems, tingling, tremors, weakness, others Musculoskeletal: denies: back pain, gout, joint pain, joint swelling, muscle pain, muscle stiffness, neck pain, others Integumetry: reports: bruises, rash; denies: change in color, change in hair/nails, dryness, laceration, lesions, lumps, wounds, others Allergic/Immunocompromised: denies: Difficulty Healing, Frequent Infections, Hives, Itching, others Hematologic/Lymphatic: denies: anemia, blood clots, easy bleeding, easy bruising, swollen glands, others Endocrine: denies: excessive hunger, excessive sweating, excessive thirst, excessive urination, flushing, intolerance to cold, intolerance to heat, unexplained weight gain, unexplained weight loss, others Psychiatric: denies: anxiety, bipolar disorder, depression, hopeless, panic disorder, schizophrenia, sleepless, suicidal, others All Other Systems: Reviewed and Negative Physical Exam General Appearance: No Apparent Distress, Normal HEENT: Normal ENT Inspection, Pharynx Normal, TMs Normal Neck: Full Range of Motion, Non-Tender, Normal, Normal Inspection Respiratory: Chest Non-Tender, Lungs Clear, No Accessory Muscle Use, No Respiratory Distress, Normal Breath Sounds Cardiovascular: No Edema, No JVD, No Murmur, No Gallop, Normal Peripheral Pulses, Regular Rate/Rhythm Breast Exam: Deferred Gastrointestinal: No Organomegaly, Non Tender, No Pulsatile Mass, Normal Bowel Sounds, Soft Genitalia: Deferred Pelvic: Deferred Rectal: Deferred Extremities: No calf tenderness, Normal capillary refill, Normal inspection, Normal range of motion, Non-tender, No pedal edema Musculoskeletal : Apperance: Normal Neurologic: Alert, machine riveter II-XII nml as Tested, No Motor Deficits, Normal Affect, Normal Mood, No Sensory Deficits Cerebellar Function: Normal Reflexes: Normal Skin: Dry, Normal Color, Warm Lymphatic: No Adenopathy Was a procedure done? Was a procedure done?: No Differential Dx Differential Diagnosis: Bronchitis, CHF, Pneumonia, URI X-Ray, Labs, Meds, VS Vital Signs Date Time Temp Pulse Resp B/P (MAP) Pulse Ox O2 Delivery O2 Flow Rate FiO2 01/26/25 12:53 97.9 98 16 145/91 (109) 94 97.9 Lab Test 01/26/25 13:56 01/26/25 13:07 Range/Units Troponin I High Sensitivity 11 12 </=34 ng/L White Blood Count 5.8 4.4-10.8 10^3/uL Red Blood Count 3.90 L 4.0-5.20 10^6/uL Hemoglobin 12.9 12.2-16.2 g/dL Hematocrit 39.0 36.0-46.0 % Mean Corpuscular Volume 99.8 80.0-100.0 fL Mean Corpuscular Hemoglobin 33.1 H 28.0-32.0 pg Mean Corpuscular Hemoglobin Concent 33.2 32.0-36.0 g/dL Red Cell Distribution Width 15.6 H 11.8-14.3 % Platelet Count 373 140-450 10^3/uL Mean Platelet Volume 7.8 6.9-10.8 fL Neutrophils (%) (Auto) 82.3 H 37.0-80.0 % Lymphocytes (%) (Auto) 10.2 10.0-50.0 % Monocytes (%) (Auto) 5.8 0.0-12.0 % Eosinophils (%) (Auto) 0.5 0.0-7.0 % Basophils (%) (Auto) 1.2 0.0-2.0 % Neutrophils # (Auto) 4.8 1.6-8.6 10 ^3/uL Lymphocytes # (Auto) 0.6 0.4-5.4 10 ^3/uL Monocytes # (Auto) 0.3 0-1.3 10 ^3/uL Eosinophils # (Auto) 0 0-0.8 10 ^3/uL Basophils # (Auto) 0.1 0-0.2 10 ^3/uL Nucleated Red Blood Cells 0.1 % Sodium Level 140 136-145 mmol/L Potassium Level 3.3 L 3.5-5.1 mmol/L Chloride Level 103 98-107 mmol/L Carbon Dioxide Level 23 20-31 mmol/L Anion Gap 14 5-15 Blood Urea Nitrogen 14 9-23 mg/dL Creatinine 1.02 0.550-1.02 mg/dL Glomerular Filtration Rate Calc 56 >90 mL/min BUN/Creatinine Ratio 13.7 10.0-20.0 Serum Glucose 263 H 74-106 mg/dL Calcium Level 9.7 8.7-10.4 mg/dL B-Type Natriuretic Peptide 251.36 0-100 pg/mL [place] [id number] Ph: [phone] DIAGNOSTIC IMAGING Diagnostic Imaging Report : [id number] Signed PATIENT: TREVOR HIDALGO MACHACCT: [id number] UNIT: [id number] : 1945 LOC: ER ROOM / BED: / AGE / SEX: 79 / F ADM STATUS: REG ER SERVICE 1247 ORDERING PHYSICIAN: CHELY AVALOS MD PROCEDURE(s): CXRP - CHEST PORTABLE REASON: sob ORDER NUMBER(s): [id number], ACCESSION NUMBER(s): [id number] EXAM: XY CHEST PORTABLE REASON FOR EXAM: sob TECHNIQUE: 1 view of the chest COMPARISON: XY CHEST PORTABLE on DOS: 10/26/23 FINDINGS: LUNGS: Medium to large right-sided pleural effusion with atelectasis and/or collapse in the right lower lobe current suprahilar cephalization. MEDIASTINUM: Mild cardiomegaly BONES: No acute osseous abnormality OTHER: None IMPRESSION: 1. Medium to large right-sided pleural effusion. HS:Y ATED BY: JESSICA QUIÑONEZ MD DICTATED DATE/TIME: 01/26/25 1320 SIGNED BY: JESSICA QUIÑONEZ MD SIGNED DATE/TIME: 01/26/25 132 CC: Time of 1ST Reevaluation: 13:20 Reevaluation 1ST: Unchanged Patient Education/Counseling: Diagnosis, Treatment, Prognosis Family Education/Counseling: Diagnosis, Treatment, Prognosis Additional Information The following tests were ordered, and results were reviewed by me: BMP, CBC, BNP, TROP -x3, EKG, XY CHEST Additional Information was gathered from interviewing the following independent historians: daughter I reviewed and agreed with the following test results read by other providers: XY CHEST I discussed treatment and results with medical personnel and: Patient, daughter Comprehensive systems review obtained and negative except for what is stated in the HPI. Departure 1 Departure Time of Disposition: 15:01 (Patient with worsening shortness of breath. Patient was found to have a large right-sided pleural effusion. Patient's labs are otherwise benign. We will admit patient for further workup) Impression: Primary Impression: Pleural effusion Additional Impressions: Shortness of breath Generalized weakness Disposition: ADMITTED INPATIENT Admit to: Med Surg Condition: Serious Critical Care Note Critical Care Time?: Yes Critical care comment: Acute shortness of breath Authorized and Performed by: Chely Avalos MD Total critical care time: Approximately 39 minutes Due to a high probability of clinically significant, life threatening deterioration, the patient required my highest level of preparedness to intervene emergently and I personally spent this critical care time directly and personally managing the patient. This critical care time included obtaining a history; examining the patient; pulse oximetry; ordering and review of studies; arranging urgent treatment with development of a management plan; evaluation of patient's response to treatment; frequent reassessment; and, discussions with other providers. This critical care time was performed to assess and manage the high probability of imminent, life-threatening deterioration that could result in multi-organ failure. It was exclusive of separately billable procedures and treating other patients and teaching time. Please see my other sections and the rest of the note for further information on patient assessment and treatment. Stability Stability form required: No Heart Score Heart Score: Heart Score Response (Comments) Value History N/A 0 EKG N/A 0 Age N/A 0 Risk Factors N/A 0 Troponin N/A 0 Total 0 I personally scribed for CHELY AVALOS MD ([email or web address]) on 01/26/25 at 12:56. Electronically submitted by Merari Gunn ([email or web address]). I personally scribed for CHELY AVALOS MD ([email or web address]) on 01/26/25 at 12:57. Electronically submitted by Merari Gunn ([email or web address]). I personally scribed for CHELY AVALOS MD ([email or web address]) on 01/26/25 at 14:03. Electronically submitted by Merari Gunn ([email or web address]). CHELY AVALOS MD Jan 26, 2025 12:56
[2025-01-26 13:13] LABS: Basophils # (auto) 0.1 10 ^3/uL (0-0.2); Basophils % (auto) 1.2 % (0.0-2.0); Eosinophils # (auto) 0 10 ^3/uL (0-0.8); Eosinophils % (auto) 0.5 % (0.0-7.0); Hemoglobin 12.9 g/dL (12.2-16.2); Lymphocytes # (auto) 0.6 10 ^3/uL (0.4-5.4); Lymphocytes % (auto) 10.2 % (10.0-50.0); Mean Corpuscular Hemoglobin 33.1 pg (28.0-32.0); Mean Corpuscular Hgb Conc. 33.2 g/dL (32.0-36.0); Mean Corpuscular Volume 99.8 fL (80.0-100.0); Monocytes # (auto) 0.3 10 ^3/uL (0-1.3); Monocytes % (auto) 5.8 % (0.0-12.0); Neutrophils # (auto) 4.8 10 ^3/uL (1.6-8.6); Neutrophils % (auto) 82.3 % (37.0-80.0); Nucleated Red Blood Cells % 0.1 %; Platelet Count (auto) 373 10^3/uL (140-450); Red Cell Distribution Width 15.6 % (11.8-14.3); White Blood Cell 5.8 10^3/uL (4.4-10.8)
[2025-01-26 13:20] LABS: Chloride 103 mmol/L (98-107); Sodium 140 mmol/L (136-145)
[2025-01-26 13:21] LABS: Anion Gap 14 (5-15); Calcium 9.7 mg/dL (8.7-10.4); Carbon Dioxide 23 mmol/L (20-31)
--- NOTE | 2025-01-26 13:22 | DVH ---
EXAM: XY CHEST PORTABLE REASON FOR EXAM: sob TECHNIQUE: 1 view of the chest COMPARISON: XY CHEST PORTABLE on DOS: 10/26/23 FINDINGS: LUNGS: Medium to large right-sided pleural effusion with atelectasis and/or collapse in the right low er lobe current suprahilar cephalization. MEDIASTINUM: Mild cardiomegaly BONES: No acute osseous abnormality OTHER: None IMPRESSION: 1. Medium to large right-sided pleural effusion. HS:Y
[2025-01-26 13:26] LABS: BUN/Creatinine Ratio 13.7 (10.0-20.0); Blood Urea Nitrogen 14 mg/dL (9-23); Glucose 263 mg/dL (74-106); Potassium 3.3 mmol/L (3.5-5.1)
[2025-01-26] MEDS ORDERED: ACETAMINOPHEN 325 MG TAB PO PRN (18:45)
[2025-01-26] MEDS ORDERED: ONDANSETRON HCL 4 MG/2 ML VIAL IV PRN (18:45)
[2025-01-26] MEDS ORDERED: ALBUTEROL SULF 2.5 MG/0.5ML(0.5%) NEB SOLN NEB PRN (18:45)
[2025-01-26] MEDS ORDERED: DEXTROSE (50%) 50ML SYRG IV PRN (18:45)
[2025-01-26 18:54] VITALS: BP 145/91; PULSE 107; RESP 16; TEMP 97.9; O2SAT 94
[2025-01-26 19:31] LABS: INR 1.25 (0.9-1.15); Partial Thromboplastin Time 28.1 SEC (24.5-34.5)
--- NOTE | 2025-01-26 20:47 | DVHHP2 ---
History of Present Illness Reason for Visit: Shortness of breath History of Present Illness 79-year-old female presents for evaluation of shortness for breath. Patient endorses a two day history of worsening shortness for breath with associated nonproductive cough. She also reports mild chest pressure. Denies cough or fever. No other acute complaints reported. Past Medical History Diabetes mellitus, GERD, hypertension, AFib Past Surgical History Denies Family History Noncontributory Smoke: No ALCOHOL: none Drugs: None Lives: with Family Review of Systems Review of Systems Review of systems are currently negative otherwise addressed in HPI. Allergies: Coded Allergies: NO KNOWN ALLERGIES (Unverified , 12/10/17) Medications Current Medications Medications Dose Ordered Sig/Berhane Route Start Time Stop Time Status Last Admin Dose Admin Amlodipine Besylate 2.5 mg DAILY PO 01/27/25 10:00 Apixaban 5 mg BID PO 01/26/25 22:00 Diagnostic Test (Pha) 1 strip ACHS 01/26/25 22:00 Insulin Human Regular ACHS SC 01/26/25 22:00 Dextrose 50 ml UD PRN IV 01/26/25 18:45 Ondansetron HCl 4 mg Q4HP PRN IV 01/26/25 18:45 Acetaminophen 650 mg Q6HP PRN PO 01/26/25 18:45 Albuterol 2.5 mg Q6HPRN PRN NEB 01/26/25 18:45 Exam Vital Signs Vital Signs Date Time Temp Pulse Resp B/P (MAP) Pulse Ox O2 Delivery O2 Flow Rate FiO2 01/26/25 18:54 97.9 107 16 145/91 94 0.0 97.9 Exam Gen: 79-year-old female in mild distress Skin: Warm, dry, normal color and texture, no rash. HEENT: Normocephalic atraumatic, mucous membranes moist and pink. Neck: Cervical and supraclavicular nodes normal without enlargement, trachea is midline, thyroid gland is normal without masses. Pulmonary: Diminished breath sounds bilaterally Cardiac: Regular rate and rhythm. No murmur Abdomen: Soft, nontender, nondistended, bowel sounds present all 4 quadrants, no guarding, no rigidity, no organomegaly. Extremities: No cyanosis, clubbing, no edema Neuro: Cranial nerves II through XII grossly intact, normal affect and speech, no focal motor deficits. Labs/Xrays ORDERING PHYSICIAN: CHELY DUTTA MD PROCEDURE(s): CXRP - CHEST PORTABLE REASON: sob ORDER NUMBER(s): [id number], ACCESSION NUMBER(s): [id number] EXAM: XY CHEST PORTABLE REASON FOR EXAM: sob TECHNIQUE: 1 view of the chest COMPARISON: XY CHEST PORTABLE on DOS: 10/26/23 FINDINGS: LUNGS: Medium to large right-sided pleural effusion with atelectasis and/or collapse in the right lower lobe current suprahilar cephalization. MEDIASTINUM: Mild cardiomegaly BONES: No acute osseous abnormality OTHER: None IMPRESSION: 1. Medium to large right-sided pleural effusion. HS:Y Labs Test 01/26/25 16:19 01/26/25 13:07 Range/Units Prothrombin Time 13.0 H 9.3-11.8 sec Prothrombin Time INR 1.25 H 0.9-1.15 Activated Partial Thromboplast Time 28.1 24.5-34.5 SEC Troponin I High Sensitivity 10 </=34 ng/L White Blood Count 5.8 4.4-10.8 10^3/uL Red Blood Count 3.90 L 4.0-5.20 10^6/uL Hemoglobin 12.9 12.2-16.2 g/dL Hematocrit 39.0 36.0-46.0 % Mean Corpuscular Volume 99.8 80.0-100.0 fL Mean Corpuscular Hemoglobin 33.1 H 28.0-32.0 pg Mean Corpuscular Hemoglobin Concent 33.2 32.0-36.0 g/dL Red Cell Distribution Width 15.6 H 11.8-14.3 % Platelet Count 373 140-450 10^3/uL Mean Platelet Volume 7.8 6.9-10.8 fL Neutrophils (%) (Auto) 82.3 H 37.0-80.0 % Lymphocytes (%) (Auto) 10.2 10.0-50.0 % Monocytes (%) (Auto) 5.8 0.0-12.0 % Eosinophils (%) (Auto) 0.5 0.0-7.0 % Basophils (%) (Auto) 1.2 0.0-2.0 % Neutrophils # (Auto) 4.8 1.6-8.6 10 ^3/uL Lymphocytes # (Auto) 0.6 0.4-5.4 10 ^3/uL Monocytes # (Auto) 0.3 0-1.3 10 ^3/uL Eosinophils # (Auto) 0 0-0.8 10 ^3/uL Basophils # (Auto) 0.1 0-0.2 10 ^3/uL Nucleated Red Blood Cells 0.1 % Sodium Level 140 136-145 mmol/L Potassium Level 3.3 L 3.5-5.1 mmol/L Chloride Level 103 98-107 mmol/L Carbon Dioxide Level 23 20-31 mmol/L Anion Gap 14 5-15 Blood Urea Nitrogen 14 9-23 mg/dL Creatinine 1.02 0.550-1.02 mg/dL Glomerular Filtration Rate Calc 56 >90 mL/min BUN/Creatinine Ratio 13.7 10.0-20.0 Serum Glucose 263 H 74-106 mg/dL Calcium Level 9.7 8.7-10.4 mg/dL B-Type Natriuretic Peptide 251.36 0-100 pg/mL Assessment/Plan Assessment/Plan Assessment Large pleural effusion Diabetes mellitus AFib secondary coagulopathy Hypertension Electrolyte imbalance Plan Admit the patient to [facility] to the hospitalist Radiology consultation Echocardiogram pending Resume home medications Continue treatment per orders. Plan discussed with: Patient My Orders Orders - FAISAL PRIEST Procedure Category Date Status Time Amlodipine Tablet PHA 01/27/25 In Process (Norvasc Tablet) 10:00 Apixaban (Eliquis) PHA 01/26/25 In Process 22:00 Consistent DIET 01/27/25 Transmitted Carb(Ccho)Diabetes Breakfast * Radiologist Consult CONS 01/26/25 Transmitted 18:37 Basic Metabolic Panel LAB 01/27/25 Verified 04:00 Glucose Blood PHA 01/26/25 In Process (Accu-Chek Comfort 22:00 Insulin R (Human) PHA 01/26/25 In Process (Insulin R) 22:00 Dextrose 50% Syringe PHA 01/26/25 In Process 18:45 Admit ADMIT 01/26/25 Transmitted 18:37 Ondansetron Hcl PHA 01/26/25 In Process (Zofran) 18:45 Cardiac DIET 01/27/25 Transmitted Diet-2gna,Lofat,Lochol Breakfast Echo 2d Mode Cardiac US 01/26/25 Logged DOP 18:37 Condition: Stable JOSEPH 01/26/25 In Process 18:37 Acetaminophen Tablet PHA 01/26/25 In Process (Tylenol Tablet) 18:45 Bedrest With Bathroom JOSEPH 01/26/25 In Process Privileg 18:37 Albuterol Medneb PHA 01/26/25 In Process (Ventolin Medneb) 18:45 Date of Service: Jan 26, 2025 Billing Provider: FAISAL PRIEST Common Visit Codes: [id number] INP/OBS CARE (HIGH) FAISAL PRIEST Jan 26, 2025 20:47
[2025-01-26 21:36] VITALS: PULSE 102; RESP 18; O2SAT 91
[2025-01-26] MEDS: ACCU-CHEK COMFORT CURVE STRIP VI SCH (21:41)
[2025-01-26] MEDS: InsuLIN REG 1unit/0.01ml Soln (100units/ml) SC SCH (21:42)
[2025-01-26] MEDS: APIXABAN 5 MG TAB PO SCH (21:47)
[2025-01-26] MEDS: POTASSIUM CHL 20 Meq TABLET PO ONE (21:47)
[2025-01-26 22:50] VITALS: RESP 18; O2SAT 94
[2025-01-27 06:01] LABS: Calcium 9.1 mg/dL (8.7-10.4); Chloride 105 mmol/L (98-107); Sodium 141 mmol/L (136-145)
[2025-01-27 06:02] LABS: Anion Gap 11 (5-15); Carbon Dioxide 25 mmol/L (20-31)
[2025-01-27 06:07] LABS: Blood Urea Nitrogen 18 mg/dL (9-23); Glucose 123 mg/dL (74-106); Potassium 3.1 mmol/L (3.5-5.1)
[2025-01-27 06:47] VITALS: O2SAT 100
[2025-01-27 06:48] VITALS: O2SAT 100
--- NOTE | 2025-01-27 07:38 | DVH ---
Bilateral Chest Sonogram Date: 01/27/2025 07:02 AM Clinical history: FLUID CHECK FOR POSSIBLE THORACENTESIS Technique: Limited sonographic evaluation of the bilateral chest was performed to evaluate for pleur al effusion. Finding/Impression: Large right pleural effusion.
[2025-01-27 08:00] VITALS: PULSE 90; RESP 22; O2SAT 93
--- NOTE | 2025-01-27 09:13 | ECG ---
[facility] Test Date: 2025-01-26 Test Time: 13:06:04 Pat Name: TREVOR HIDALGO Department: ER Room: 0288 Gender: F [employer] Work[employer]: [place] : 1945 Requested By: CHELY DUTTA Order Number: [id number] Reading MD: Johan Contreras Measurements Intervals Morgan Rate: 107 P: 0 TX: 0 QRS: -84 QRSD: 94 T: 74 QT: 360 QTc: 481 Interpretive Statements Atrial fibrillation Left anterior fascicular block Anteroseptal infarct, age indeterminate Electronically Signed On 01-27-2025 21:08:18 PDT by Johan Contreras Please click the below link to view image of tracing.
[2025-01-27] MEDS: amLODIPine BESYLATE 5 MG TAB PO SCH (10:25)
--- NOTE | 2025-01-27 14:22 | DVHPN2 ---
Reviewed: Care Plan, H&P, Labs, Medications, Previous Orders, Radiology Changes from previous H/P or p: No Changes General: Per HPI Objective Vitals Vital Signs Date Time Temp Pulse Resp B/P (MAP) Pulse Ox O2 Delivery O2 Flow Rate FiO2 01/27/25 11:43 85 16 152/99 (116) 99 01/27/25 08:00 Room Air* 0 21 01/27/25 07:28 98.1 98.1 General Appearance: Alert, Oriented X3, Cooperative HEENT: Atraumatic Cardiovascular: Regular rate, Normal S1 Abdomen: Normal bowel sounds, Soft Medications Current Medications Medications Dose Ordered Sig/Berhane Route Start Time Stop Time Status Last Admin Dose Admin Amlodipine Besylate 2.5 mg DAILY PO 01/27/25 10:00 01/27/25 10:25 2.5 MG Apixaban 5 mg BID PO 01/26/25 22:00 01/27/25 10:24 5 MG Diagnostic Test (Pha) 1 strip ACHS 01/26/25 22:00 01/27/25 12:20 1 STRIP Insulin Human Regular ACHS SC 01/26/25 22:00 01/27/25 07:58 2 UNITS Dextrose 50 ml UD PRN IV 01/26/25 18:45 Ondansetron HCl 4 mg Q4HP PRN IV 01/26/25 18:45 Acetaminophen 650 mg Q6HP PRN PO 01/26/25 18:45 Albuterol 2.5 mg Q6HPRN PRN NEB 01/26/25 18:45 Laboratory Results Laboratory Tests 01/26/25 13:07 01/27/25 04:55 Chemistry Test 01/27/25 04:55 Calcium Level 9.1 mg/dL (8.7-10.4) Coagulation Test 01/26/25 16:19 Prothrombin Time 13.0 sec (9.3-11.8) H Prothrombin Time INR 1.25 (0.9-1.15) H Activated Partial Thromboplast Time 28.1 SEC (24.5-34.5) Microbiology Microbiology Date/Time Source Procedure Growth Status 01/27/25 13:14 Pleural Fluid Ordered Labs and/or images reviewed: Labs reviewed by me, Image(s) reviewed by me Assessment/Plan Assessment/Plan Large pleural effusion Diabetes mellitus AFib secondary coagulopathy Hypertension Electrolyte imbalance Plan Admit the patient to [facility] to the hospitalist Radiology consultation Echocardiogram pending Resume home medications Continue treatment per orders. 01/27/2025: pt had thoracentesis done has significant edema in LE b/l will need aggressive diuresis and PO lasix at discharge Plan discussed with: Patient My Orders Orders - HUBER INFANTE DO Procedure Category Date Status Time Thoracentesis US 01/27/25 Taken Date of Service: Jan 27, 2025 Billing Provider: HUBER INFANTE DO Common Visit Codes: [id number] INP/OBS CARE(HIGH) HUBER INFANTE DO Jan 27, 2025 14:22
--- NOTE | 2025-01-27 15:41 | DVH ---
INDICATION: POST THORACENTESIS TECHNIQUE: Frontal view of the chest. COMPARISON: XY CHEST PORTABLE on DOS: 01/26/25, XY CHEST PORTABLE on DOS: 10/26/23 FINDINGS: Significantly decreased pleural effusion status post thoracentesis.. cardiomegaly There is no evid ence of pleural disease. The lungs are clear. The bony structures of the chest are intact without fracture. IMPRESSION: 1. Cardiomegaly with mild CHF . decreased right pleural
--- NOTE | 2025-01-27 15:54 | DVH ---
PROCEDURE: ULTRASOUND GUIDED THORACENTESIS USING TEMPORARY CATHETER HISTORY: THORA DOCUMENTATION: Informed consent was obtained and a procedural time out was performed. FINDINGS: The risks and benefits of the procedure including bleeding, infection and pneumothorax were explained to the patient and written informed consent obtained. Optimal site for puncture long the right posterior chest wall was determined using real-time ultraso und and the region sterilized. Local anesthesia was instilled. A 5 Estonian catheter was then advanced into the pleural space and 1.5 liters of straw colored fluid was removed. The patient tolerated the procedure well. IMPRESSION: Ultrasound guided right thoracentesis.
[2025-01-27 16:42] LABS: Body Fluid White Blood Cells 1150 CUMM (0-200)
[2025-01-27 16:43] LABS: Body Fluid Red Blood Cells 189871 CUMM (0-2000)
[2025-01-27 16:44] VITALS: BP 146/80; PULSE 105; RESP 20; TEMP 97.9; O2SAT 92
[2025-01-27 21:00] VITALS: BP 147/82; PULSE 105; RESP 18; TEMP 98.4; O2SAT 94
[2025-01-27 22:45] VITALS: PULSE 102; RESP 18; O2SAT 97
[2025-01-28] VITALS (10 sets, daily range): BP systolic 109–153; BP diastolic 71–93; PULSE 81–100; RESP 17–19; TEMP 97.5–98.3; O2SAT 93–100
[2025-01-28] MEDS: FUROSEMIDE 40 MG/4 ML VIAL IV SCH (06:00)
[2025-01-28] MEDS: FUROSEMIDE 100 MG/10ML VIAL IV SCH (13:13)
--- NOTE | 2025-01-28 13:13 | DVHPN2 ---
Reviewed: Care Plan, H&P, Labs, Medications, Previous Orders, Radiology Changes from previous H/P or p: No Changes General: Per HPI Objective Vitals Vital Signs Date Time Temp Pulse Resp B/P (MAP) Pulse Ox O2 Delivery O2 Flow Rate FiO2 01/28/25 10:27 130/78 01/28/25 10:00 93 Nasal Cannula* 2 28 01/28/25 09:00 98.3 85 18 98.3 Intake/Output Intake and Output 01/28/25 07:00 Intake Total 400 ml Balance 400 ml Intake Oral 400 ml # Voids 2 General Appearance: Alert, Oriented X3, Cooperative HEENT: Atraumatic Cardiovascular: Regular rate, Normal S1 Abdomen: Normal bowel sounds, Soft Medications Current Medications Medications Dose Ordered Sig/Berhane Route Start Time Stop Time Status Last Admin Dose Admin Amlodipine Besylate 2.5 mg DAILY PO 01/27/25 10:00 01/28/25 10:27 2.5 MG Apixaban 5 mg BID PO 01/26/25 22:00 01/28/25 10:26 5 MG Diagnostic Test (Pha) 1 strip ACHS 01/26/25 22:00 01/28/25 11:43 1 STRIP Insulin Human Regular ACHS SC 01/26/25 22:00 01/28/25 06:41 2 UNITS Dextrose 50 ml UD PRN IV 01/26/25 18:45 Ondansetron HCl 4 mg Q4HP PRN IV 01/26/25 18:45 Acetaminophen 650 mg Q6HP PRN PO 01/26/25 18:45 Albuterol 2.5 mg Q6HPRN PRN NEB 01/26/25 18:45 Furosemide 40 mg BIDD IV 01/27/25 18:00 Laboratory Results Laboratory Tests 01/26/25 13:07 01/27/25 04:55 Microbiology Microbiology Date/Time Source Procedure Growth Status 01/27/25 13:05 Pleural Fluid Gram Stain - Final Resulted 01/27/25 13:05 Pleural Fluid Body Fluid Culture - Preliminary Resulted Assessment/Plan Assessment/Plan Large pleural effusion Diabetes mellitus AFib secondary coagulopathy Hypertension Electrolyte imbalance Plan Admit the patient to [facility] to the hospitalist Radiology consultation Echocardiogram pending Resume home medications Continue treatment per orders. 01/27/2025: pt had thoracentesis done has significant edema in LE b/l will need aggressive diuresis and PO Lasix at discharge 01/28/2025: continue with diuresis. still on supplemental O2 and has significant lower leg edema b/l Plan discussed with: Patient My Orders Orders - HUBER INFANTE DO Procedure Category Date Status Time *Consult CONS 01/27/25 Transmitted / 14:23 Furosemide Injection PHA 01/27/25 In Process (Lasix Injection) 18:00 Date of Service: Jan 28, 2025 Billing Provider: HUBER INFANTE DO Common Visit Codes: [id number] INP/OBS CARE(HIGH) HUBER INFANTE DO Jan 28, 2025 13:13
[2025-01-28 21:06] LABS: Chloride 103 mmol/L (98-107); Sodium 138 mmol/L (136-145)
[2025-01-28 21:07] LABS: Anion Gap 10 (5-15); Carbon Dioxide 25 mmol/L (20-31)
[2025-01-28 21:12] LABS: BUN/Creatinine Ratio 27.6 (10.0-20.0)
[2025-01-28 21:33] LABS: Blood Urea Nitrogen 27 mg/dL (9-23); Glucose 208 mg/dL (74-106); Potassium 3.3 mmol/L (3.5-5.1)
[2025-01-28] MEDS: POTASSIUM CHL 20 Meq TABLET PO ONE (23:35)
[2025-01-29] VITALS (7 sets, daily range): BP systolic 119–148; BP diastolic 73–90; PULSE 94–104; RESP 17–18; TEMP 98–98.3; O2SAT 90–100
[2025-01-29] MEDS: metOLazone 5 MG TAB PO SCH (09:20)
[2025-01-29] MEDS: FUROSEMIDE 100 MG/10ML VIAL IV SCH (09:21)
[2025-01-29] MEDS ORDERED: FURO1TAB31 PO (10:15)
--- NOTE | 2025-01-30 22:06 | DVHSR ---
APPROVED REPORT EXAM: Two-dimensional and M-mode echocardiogram with Doppler and color Doppler. Blood Pressure: 168/132 mmHg INDICATION EF RISK FACTORS Height: 65, Weight: 117 DIMENSIONS LVDd3.6 (3.8-5.7cm)LA (2D)4.5 (1.9-4.0cm)Aortic Root3.6 (2.0-3.7cm) LVDs2.5 (2.5-4.0cm)LA (MM) (1.9-4.0cm)Aortic Cusp Exc1.7 (1.5-2.0cm) EF (%) 60.0 (55-70%)Rt. Atrium4.4 (1.9-4.0cm)Asc. Aorta cm Mitral Valve MitralMitral Stenosis E wave1.20m/sMV Mean GR.mmHg E/A ratio0.02D MVAcm2 Aortic Valve Aortic ValveAortic Stenosis V10.68m/Nguyễn Mean GR.2mmHg V21.04m/Nguyễn Peak GR.4mmHg LVOT Diameter1.9 (1.8-2.4cm)Doppler AVA1.85cm2 Tricuspid Valve TR Velocity3.12m/s [id number] Other Information Technically limited study due to body habitus and patient position. Conclusion MODERATE DEGREE LVH AND MODERATE DEGREE LV DIASTOLIC DYSFUNCTION LV EF IS 65% MODERATELY DILATED RV SIGNIFICANTLY DILATED LA AND RA NO EFFUSION MODERATELY DILATED RV MODERATE DEGREE PULMONARY HYPERTENSION RVSP IS 45 MM OF HG AND IS MODERATELY HIGH
--- NOTE | 2025-02-04 14:20 | DVHDS2 ---
Discharge Summary Date of Admission Jan 26, 2025 at 18:37 Date of Discharge: Jan 29, 2025 Labs/Diagnostic Data: Laboratory Results Test 01/29/25 07:25 01/29/25 05:44 01/28/25 20:47 01/27/25 13:05 Potassium Level 3.9 mmol/L (3.5-5.1) POC Glucose 159 mg/dl (70-106) Sodium Level 138 mmol/L (136-145) Chloride Level 103 mmol/L (98-107) Carbon Dioxide Level 25 mmol/L (20-31) Anion Gap 10 (5-15) Blood Urea Nitrogen 27 mg/dL (9-23) Creatinine 0.98 mg/dL (0.550-1.02) Glomerular Filtration Rate Calc 59 mL/min (>90) BUN/Creatinine Ratio 27.6 (10.0-20.0) Serum Glucose 208 mg/dL (74-106) Calcium Level 9.0 mg/dL (8.7-10.4) Body Fluid Source Pleural fluid Body Fluid pH 9.0 Body Fluid WBC (Manual) 1150 CUMM (0-200) Body Fluid RBC (Manual) 512358 CUMM (0-2000) Body Fluid Mononuclear Cells 58 % Body Fluid Polymorphonuclear Cells 42 % (0-25) Body Fluid Glucose 115 mg/dL (.) Body Fluid Total Protein 5.0 g/dL (.) Body Fluid Lactate Dehydrogenase 390 IU/L (.) Test 01/26/25 16:19 01/26/25 13:07 Prothrombin Time 13.0 sec (9.3-11.8) Prothrombin Time INR 1.25 (0.9-1.15) Activated Partial Thromboplast Time 28.1 SEC (24.5-34.5) Troponin I High Sensitivity 10 ng/L (</=34) White Blood Count 5.8 10^3/uL (4.4-10.8) Red Blood Count 3.90 10^6/uL (4.0-5.20) Hemoglobin 12.9 g/dL (12.2-16.2) Hematocrit 39.0 % (36.0-46.0) Mean Corpuscular Volume 99.8 fL (80.0-100.0) Mean Corpuscular Hemoglobin 33.1 pg (28.0-32.0) Mean Corpuscular Hemoglobin Concent 33.2 g/dL (32.0-36.0) Red Cell Distribution Width 15.6 % (11.8-14.3) Platelet Count 373 10^3/uL (140-450) Mean Platelet Volume 7.8 fL (6.9-10.8) Neutrophils (%) (Auto) 82.3 % (37.0-80.0) Lymphocytes (%) (Auto) 10.2 % (10.0-50.0) Monocytes (%) (Auto) 5.8 % (0.0-12.0) Eosinophils (%) (Auto) 0.5 % (0.0-7.0) Basophils (%) (Auto) 1.2 % (0.0-2.0) Neutrophils # (Auto) 4.8 10 ^3/uL (1.6-8.6) Lymphocytes # (Auto) 0.6 10 ^3/uL (0.4-5.4) Monocytes # (Auto) 0.3 10 ^3/uL (0-1.3) Eosinophils # (Auto) 0 10 ^3/uL (0-0.8) Basophils # (Auto) 0.1 10 ^3/uL (0-0.2) Nucleated Red Blood Cells 0.1 % B-Type Natriuretic Peptide 251.36 pg/mL (0-100) Other Laboratory Tests 01/29/25 07:25 01/28/25 20:47 01/26/25 13:07 Brief Hx & Hospital Course: Large pleural effusion Diabetes mellitus A-Fib secondary coagulopathy Hypertension Electrolyte imbalance HFpEF Plan Admit the patient to [facility] to the hospitalist Radiology consultation Echocardiogram pending Resume home medications Continue treatment per orders. 01/27/2025: pt had thoracentesis done has significant edema in LE b/l will need aggressive diuresis and PO Lasix at discharge 01/28/2025: continue with diuresis. still on supplemental O2 and has significant lower leg edema b/l 01/29/2025: discharged to home Condition at Discharge: Good Final Diagnosis/Problems List see above Discharge Disposition: Home Discharge Instruct/Medications Diet: Cardiac 2g Na,low cholest Activity: No Restrictions, As Tolerated Discharge Statement: "Patient was advised to return to the ER or call 911 if any headaches, dizziness, shortness of breath, chest pain, abdominal pain, bleeding, fevers, or worsening of medical condition. Patient was counseled about treatment plan, medications, possible side effects, patientverbalized understanding. All questions were answered to the best of my ability. This discharge took greater then 30 minutes in planning, reviewing documentation, counseling the patient, and discussing with other team members." ASSESSMENT ASSESSMENT Assessment Date of Service: Jan 29, 2025 Billing Provider: HUBER INFANTE DO Common Visit Codes: 50298-ESM/OBS DISCH DAY >30min HUBER INFANTE DO Feb 04, 2025 14:20
== END 2025-01-29 15:20 | disposition home or self-care (01) | DRG 180 ==
LOC: ER 12:32 → OVERFLOW 18:37 → WEST WING 01-27 15:57 → EAST 01-27 22:40
PROVIDERS: ADMIT Internal Medicine; ATTEND Internal Medicine
PROC: 0W993ZZ Drainage of Right Pleural Cavity, Percutaneous Approach (ICD-10-PCS; principal; 2025-01-27)
DX: C34.91 Malignant neoplasm of unspecified part of right bronchus or lung (principal); I50.31 Acute diastolic (congestive) heart failure; J96.00 Acute respiratory failure, unspecified whether with hypoxia or hypercapnia; D68.9 Coagulation defect, unspecified; J90 Pleural effusion, not elsewhere classified; I11.0 Hypertensive heart disease with heart failure; I48.91 Unspecified atrial fibrillation; E11.9 Type 2 diabetes mellitus without complications; K21.9 Gastro-esophageal reflux disease without esophagitis; Z79.899 Other long term (current) drug therapy
CPT/HCPCS: 32555; 36415; 71045; 76604; 76942; 80048; 82962; 83880; 83986; 84132; 84484; 85025; 85610; 85730; 87205; 89051; 93005; 93306; 99291; G0378; J1815

== ENCOUNTER 2025-03-07 09:46 | Inpatient (IN) | payer OTHER, MEDICAID ==
[~2025-03-07] VITALS: Ht 165.1 cm; Wt 58.2 kg
[2025-03-07] VITALS (7 sets, daily range): BP systolic 129–153; BP diastolic 78–92; PULSE 100–126; RESP 16–24; TEMP 97.4–97.7; O2SAT 92–98
[~2025-03-07 09:46] MED LIST changes: -ACET500T58 PO; -ASPI-543 PO; -CEPH250C PO; -CYCL-837 PO; +FURO1TAB31 PO; -GABA-1308 PO; +HYD1TP EX; -HYDR-4902 PO; -LEVO500T31 PO; -MAGN84TA4 PO; -OMEP20CA74 PO; -POTA-228 PO; -RALO60TA14 PO; -SACC250C PO
--- NOTE | 2025-03-07 10:00 | ED.PDOC ---
History of Present Illness HPI Comments 79-year-old female came to the ER stating that she has been having generalized weakness back pain unable to ambulate since Saturday. She usually ambulates with some help but she has been much slower as per family. She does have a history of diabetes hypertension with no past surgical history. She is also using accessory muscles to help her breathe since Saturday. Denies any other symptoms Time Seen by MD: 09:47 Primary Care Provider: ELIDA Reviewed Notes: Nurses Notes, Medications, Allergies Allergies: Coded Allergies: NO KNOWN ALLERGIES (Unverified , 12/10/17) Home Meds Active Scripts Furosemide (Lasix) 40 Mg Tab, 40 MG PO daiy for 30 Days, #30 TAB 3 Refills Prov:HUBER INFANTE DO 01/29/25 Reported Medications Metformin Hydrochloride (Metformin Hcl) 500 Mg Tab, 1 TAB PO for 90 Days, #180 01/27/25 Apixaban Base (ELIQUIS) 5 Mg Tab, 1 TAB PO BID for 90 Days, #180 01/27/25 Omeprazole (Omeprazole Dr) 40 Mg Cap, 1 CAP PO DAILY for 90 Days, #90 01/27/25 Amlodipine Besylate (Amlodipine Besylate) 2.5 Mg Tab, 1 TAB PO DAILY for 90 Days, #90 09/08/14 Information Source: Patient Mode of Arrival: Wheelchair Severity: Moderate Timing: Days Duration: Since onset Past Medical History PAST MEDICAL HISTORY: AFIB, Arthritis, DM, GERD, HTN Surgical History: Denies all surgeries EDUCATION AND OUTREACH COORDINATOR History: No Pertinent EDUCATION AND OUTREACH COORDINATOR History Family History Family History: Reviewed,noncontributory to illness, Unknown Social History Smoker: Non-Smoker Alcohol: Denies ETOH Use Drugs: Denies Drug Use Lives In: Home Constitutional: reports: weakness; denies: chills, diaphoresis, fatigue, fever, malaise, sweats, others EENTM: denies: blurred vision, double vision, ear bleeding, ear discharge, ear drainage, ear pain, ear ringing, eye pain, eye redness, hearing loss, mouth pain, mouth swelling, nasal discharge, nose bleeding, nose congestion, nose pain, photophobia, tearing, throat pain, throat swelling, voice changes, others Respiratory: reports: shortness of breath Cardiovascular: denies: chest pain, dizzy spells, diaphoresis, Dyspnea on exertion, edema, irregular heart beat, left arm pain, lightheadedness, palpitations, PND, syncope, others Gastrointestinal: denies: abdomen distended, abdominal pain, blood streaked bowels, constipated, diarrhea, dysphagia, difficulty swallowing, hematemesis, melena, nausea, poor appetite, poor fluid intake, rectal bleeding, rectal pain, vomiting, others Genitourinary: denies: abnormal vagina bleeding, burning, dyspareunia, dysuria, flank pain, frequency, hematuria, incontinence, pain, , vagina discharge, urgency, others Neurological: denies: dizziness, fainting, headache, left sided numbness, left sided weakness, numbness, paresthesia, pre-existing deficit, right sided numbness, right sided weakness, seizure, speech problems, tingling, tremors, weakness, others Musculoskeletal: reports: back pain; denies: gout, joint pain, joint swelling, muscle pain, muscle stiffness, neck pain, others Integumetry: denies: bruises, change in color, change in hair/nails, dryness, laceration, lesions, lumps, rash, wounds, others Allergic/Immunocompromised: denies: Difficulty Healing, Frequent Infections, Hives, Itching, others Hematologic/Lymphatic: denies: anemia, blood clots, easy bleeding, easy bruising, swollen glands, others Endocrine: denies: excessive hunger, excessive sweating, excessive thirst, excessive urination, flushing, intolerance to cold, intolerance to heat, unexplained weight gain, unexplained weight loss, others Psychiatric: denies: anxiety, bipolar disorder, depression, hopeless, panic disorder, schizophrenia, sleepless, suicidal, others Physical Exam General Appearance: Moderate Distress HEENT: Normal ENT Inspection, Pharynx Normal, TMs Normal Neck: Full Range of Motion, Non-Tender, Normal, Normal Inspection Respiratory: Accessory Muscle Use, Other (Coarse breath sounds) Cardiovascular: Irregular, No Edema, No JVD, No Murmur, No Gallop, Normal Peripheral Pulses Breast Exam: Deferred Gastrointestinal: No Organomegaly, Non Tender, No Pulsatile Mass, Normal Bowel Sounds, Soft Genitalia: Deferred Pelvic: Deferred Rectal: Deferred Extremities: No calf tenderness, Normal capillary refill, Normal inspection, Normal range of motion, Non-tender, No pedal edema Musculoskeletal : Apperance: Normal Neurologic: Alert, No Motor Deficits, No Sensory Deficits Cerebellar Function: NOT DONE Reflexes: NOT DONE Skin: Normal Color Peripheral Pulses: 3+ Radial (R), 3+ Radial (L) Lymphatic: No Adenopathy Was a procedure done? Was a procedure done?: No Differential Dx Considerations may include: Generalized weakness Pneumonia X-Ray, Labs, Meds, VS Vital Signs Date Time Temp Pulse Resp B/P (MAP) Pulse Ox O2 Delivery O2 Flow Rate FiO2 03/07/25 13:00 97.7 87 24 160/91 (114) 94 97.7 03/07/25 11:59 121 03/07/25 11:27 112 03/07/25 10:35 116 24 97 Non-Rebreather 15 N/A 03/07/25 10:35 97.7 116 24 152/93 (112) 98 97.7 03/07/25 10:10 32 76 Room Air* 0 21 03/07/25 09:53 97.7 132 32 146/90 (108) 76 97.7 Lab Test 03/07/25 13:23 03/07/25 12:41 03/07/25 11:40 03/07/25 10:35 Range/Units Troponin I High Sensitivity 10 10 10 </=34 ng/L Lactic Acid Level 2.0 3.0 *H 0.4-2.0 mmol/L White Blood Count 10.1 4.4-10.8 10^3/uL Red Blood Count 3.05 L 4.0-5.20 10^6/uL Hemoglobin 9.7 L 12.2-16.2 g/dL Hematocrit 29.6 L 36.0-46.0 % Mean Corpuscular Volume 96.9 80.0-100.0 fL Mean Corpuscular Hemoglobin 31.8 28.0-32.0 pg Mean Corpuscular Hemoglobin Concent 32.9 32.0-36.0 g/dL Red Cell Distribution Width 15.7 H 11.8-14.3 % Platelet Count 629 H 140-450 10^3/uL Mean Platelet Volume 8.0 6.9-10.8 fL Neutrophils (%) (Auto) 91.6 H 37.0-80.0 % Lymphocytes (%) (Auto) 2.9 L 10.0-50.0 % Monocytes (%) (Auto) 5.3 0.0-12.0 % Eosinophils (%) (Auto) 0.0 0.0-7.0 % Basophils (%) (Auto) 0.2 0.0-2.0 % Neutrophils # (Auto) 9.2 H 1.6-8.6 10 ^3/uL Lymphocytes # (Auto) 0.3 L 0.4-5.4 10 ^3/uL Monocytes # (Auto) 0.5 0-1.3 10 ^3/uL Eosinophils # (Auto) 0 0-0.8 10 ^3/uL Basophils # (Auto) 0 0-0.2 10 ^3/uL Nucleated Red Blood Cells 0.1 % Sodium Level 136 136-145 mmol/L Potassium Level 3.6 3.5-5.1 mmol/L Chloride Level 101 98-107 mmol/L Carbon Dioxide Level 22 20-31 mmol/L Anion Gap 13 5-15 Blood Urea Nitrogen 29 H 9-23 mg/dL Creatinine 0.88 0.550-1.02 mg/dL Glomerular Filtration Rate Calc 67 >90 mL/min BUN/Creatinine Ratio 33.0 H 10.0-20.0 Serum Glucose 254 H 74-106 mg/dL Calcium Level 9.4 8.7-10.4 mg/dL B-Type Natriuretic Peptide 628.85 0-100 pg/mL Test 03/07/25 10:30 03/07/25 10:00 Range/Units Magnesium Level Pending Urine Color Yellow Yellow Urine Clarity Clear Clear Urine pH 6.0 5.0-9.0 Urine Specific [place] 1.031 1.001-1.035 Urine Protein 3+ H Negative Urine Ketones Trace Negative Urine Blood 2+ H Negative /uL Urine Nitrite Negative Negative Urine Bilirubin Negative Negative Urine Urobilinogen Normal Negative mg/dL Urine Leukocyte Esterase 1+ Negative /uL Urine RBC 26 0 - 4 /hpf Urine Microscopic WBC 15 H 0-5 /HPF Urine Squamous Epithelial Cells Few <5 /hpf Urine Bacteria None seen None Seen /hpf Urine Mucus Few None Seen Urine Glucose 3+ H Normal mg/dL Current Medications Medications (Trade) Dose Ordered Sig/Ber[place]ane Route Start Time Stop Time Status Last Admin Levofloxacin/ Dextrose 100 ml @ 100 mls/hr ONCE ONCE IV 03/07/25 10:00 03/07/25 10:59 DC 03/07/25 10:40 Sodium Chloride 1,000 ml @ 1,000 mls/hr Q1H ONCE IV 03/07/25 12:00 03/07/25 12:59 DC 03/07/25 11:50 Sodium Chloride 1,000 ml @ 150 mls/hr Q6H40M ONCE IV 03/07/25 12:00 03/07/25 18:39 03/07/25 13:55 Patient alert. Complaining of shortness a breath. Atrial fibrillation. Vitals stable. EKG does confirm atrial fibrillation. Urinalysis shows UTI. Possible sepsis. Sepsis protocol. Was given Levaquin. Was given Flagyl. Started amiodarone. Establish intravenous access. Was given fluids. Chest x-ray does show early pneumonia. Continue to monitor. Time of 1ST Reevaluation: 09:59 Reevaluation 1ST: Unchanged Patient Education/Counseling: Diagnosis, Treatment, Prognosis Family Education/Counseling: Diagnosis Sepsis Sepsis Reasesment Focused Exam Orders: Laboratory Tests 03/07/25 10:35: Lactic Acid Level 3.0 03/07/25 12:41: Lactic Acid Level 2.0 Departure 1 Departure Time of Disposition: 09:59 Impression: Primary Impression: Pneumonia Qualified Codes: J18.9 - Pneumonia, unspecified organism Additional Impressions: Sepsis Qualified Codes: A41.9 - Sepsis, unspecified organism Atrial fibrillation Qualified Codes: I48.0 - Paroxysmal atrial fibrillation Disposition: ADMITTED INPATIENT Admit to: Med Surg Condition: Guarded Critical Care Note Critical Care Time?: Yes (90 min-critical care time only) Critical care comment: Using accessory muscles continue to monitor Stability Stability form required: No Heart Score Heart Score: Heart Score Response (Comments) Value History Slightly Suspicious 0 EKG Normal 0 Age >65 2 Risk Factors >3 or Hx ASHD 2 Troponin Normal limit 0 Total 4 AKHIL ARCE MD March 07, 2025 10:00
[2025-03-07] MEDS: levoFLOXacin 500MG 100 ML IV ONE (10:40)
[2025-03-07 10:54] LABS: Basophils # (auto) 0 10 ^3/uL (0-0.2); Eosinophils # (auto) 0 10 ^3/uL (0-0.8); Hemoglobin 9.7 g/dL (12.2-16.2); Lymphocytes # (auto) 0.3 10 ^3/uL (0.4-5.4); Mean Corpuscular Hemoglobin 31.8 pg (28.0-32.0); Monocytes # (auto) 0.5 10 ^3/uL (0-1.3); Neutrophils # (auto) 9.2 10 ^3/uL (1.6-8.6)
[2025-03-07 10:56] LABS: Basophils % (auto) 0.2 % (0.0-2.0); Hematocrit 29.6 % (36.0-46.0); Lymphocytes % (auto) 2.9 % (10.0-50.0); Mean Corpuscular Hgb Conc. 32.9 g/dL (32.0-36.0); Mean Corpuscular Volume 96.9 fL (80.0-100.0); Monocytes % (auto) 5.3 % (0.0-12.0); Neutrophils % (auto) 91.6 % (37.0-80.0); Nucleated Red Blood Cells % 0.1 %; Platelet Count (auto) 629 10^3/uL (140-450); Red Blood Cells 3.05 10^6/uL (4.0-5.20); Red Cell Distribution Width 15.7 % (11.8-14.3); White Blood Cell 10.1 10^3/uL (4.4-10.8)
[2025-03-07 11:01] LABS: Chloride 101 mmol/L (98-107); Potassium 3.6 mmol/L (3.5-5.1); Sodium 136 mmol/L (136-145)
[2025-03-07 11:02] LABS: Anion Gap 13 (5-15); Carbon Dioxide 22 mmol/L (20-31)
[2025-03-07 11:03] LABS: Calcium 9.4 mg/dL (8.7-10.4)
[2025-03-07 11:24] LABS: Blood Urea Nitrogen 29 mg/dL (9-23); Glucose 254 mg/dL (74-106)
--- NOTE | 2025-03-07 11:48 | DVH ---
CHEST RADIOGRAPH Indication: sob Technique: Single frontal view of the chest was obtained Comparison: XY CHEST PORTABLE on DOS: 01/27/25 FINDINGS: Lines and Tubes: None Lungs: Severe bilateral airspace disease. Pleura: No effusion. No pneumothorax. Cardiomediastinal contours: Cardiomegaly. Bones: No acute osseous abnormality. IMPRESSION: 1. Severe bilateral airspace disease reflecting multifocal pneumonia.
[2025-03-07] MEDS: SODIUM CHLORIDE 0.9% 1,000 ML IV ONE ×2 (11:50→13:55)
--- NOTE | 2025-03-07 12:03 | ECG ---
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
[2025-03-07 12:20] LABS: Urine Bacteria None Seen /hpf (None Seen)
[2025-03-07 12:36] LABS: Urine Blood 2+ /uL (Negative); Urine Clarity Clear (Clear); Urine Color Yellow (Yellow); Urine Mucus FEW (None Seen); Urine Protein, UAD 3+ (Negative); Urine Specific Gravity 1.031 (1.001-1.035); Urine Squamous Epithelial Cell FEW /hpf (<5); Urine Urobilinogen Normal (Negative); Urine WBC 15 /HPF (0-5)
[2025-03-07] MEDS: AMIODARONE BOLUS KIT 100 ML IV ONE (13:56)
[2025-03-07] MEDS ORDERED: ONDANSETRON HCL 4 MG/2 ML VIAL IV PRN (14:00)
[2025-03-07] MEDS ORDERED: DEXTROSE (50%) 50ML SYRG IV PRN (14:00)
[2025-03-07] MEDS ORDERED: MORPHINE SULFATE INJ 2 MG/ml SYRG IV PRN (14:00)
[2025-03-07] MEDS ORDERED: NITROGLYCERIN 0.4 MG SL TAB SL PRN (14:00)
[2025-03-07] MEDS: AMIODARONE 360mg/200mL PREMIX 200 ML IV ONE (14:01)
--- NOTE | 2025-03-07 14:02 | DVHHP2 ---
History of Present Illness Reason for Visit: Shortness of breath History of Present Illness A79 year old female presents to the ED with a progressive generalized weakness over the past few days. Her symptoms are associated with shortness of breath, cough, and congestion, which have worsened over the last couple of days. She c urrently denies chest pain. In the emergency department, imaging reveals bilateral lower lobe multifocal pneumonia, UTI, and she was also found to be in atrial fibrillation with rapid ventricular response for which she was started on amiodarone drip. Significant past medical history includes atrial fibrillation previously followed by ?Dr. Contreras, hypertension, right upper extremity DVT on Eliquis, diabetes mellitus, GERD, and recent pleural effusion for which she was started on Lasix. Past Medical History As stated in HPI Past Surgical History Denies Family History Reviewed, non-contributory to the management of this case. Past Social History The patient lives at home, denies smoking, alcohol or illicit drugs abuse. Review of Systems Constitutional: Yes: Weakness; No: Fever, Chills, Sweats, Malaise, Other Eyes: No: Pain, Vision change, Conjunctivae inflammation, Eyelid inflammation, Other, Redness ENT: No: Ear pain, Ear discharge, Nose pain, Nose discharge, Nose congestion, Mouth pain, Mouth swelling, Throat pain, Throat swelling, Other Respiratory: Cough, Shortness of breath, SOB with excertion, Other (Congestion); No: Dry, Wheezing, Hemoptysis, Pleuritic Pain, Sputum, Wheezing Cardiovascular: No: Chest Pain, Palpitations, Orthopnea, Paroxysmal Noc. Dyspnea, Edema, Lt Headedness, Other Gastrointestinal: No: Nausea, Vomiting, Abdominal Pain, Diarrhea, Constipation, Melena, Hematochezia, Other Genitourinary: No Dysuria, No Frequency, No Incontinence, No Hematuria, No Retention, No Other Musculoskeletal: No: other, neck pain, shoulder pain, arm pain, back pain, hand pain, leg pain, foot pain Neurological: Weakness Allergies: Coded Allergies: NO KNOWN ALLERGIES (Unverified , 12/10/17) Exam Vital Signs Vital Signs Date Time Temp Pulse Resp B/P (MAP) Pulse Ox O2 Delivery O2 Flow Rate FiO2 03/07/25 13:00 97.7 87 24 160/91 (114) 94 97.7 03/07/25 10:35 Non-Rebreather 15 N/A General Appearance: Alert, Oriented X3, Cooperative, mild distress HEENT: Atraumatic, PERRLA, EOMI Respiratory: Other (Coarse lung sounds) Cardiovascular: Other (AFib with RVR currently on amiodarone drip) Abdominal: Normal bowel sounds, Soft, No tenderness Extremities: No clubbing, No cyanosis, No edema Skin: No rashes, No breakdown, No significant lesion Neuro: Normal speech Psych/Mental Status: Mental status NL Labs/Xrays Labs Test 03/07/25 13:23 03/07/25 12:41 03/07/25 10:35 03/07/25 10:00 Range/Units Lactic Acid Level 2.0 0.4-2.0 mmol/L White Blood Count 10.1 4.4-10.8 10^3/uL Red Blood Count 3.05 L 4.0-5.20 10^6/uL Hemoglobin 9.7 L 12.2-16.2 g/dL Hematocrit 29.6 L 36.0-46.0 % Mean Corpuscular Volume 96.9 80.0-100.0 fL Mean Corpuscular Hemoglobin 31.8 28.0-32.0 pg Mean Corpuscular Hemoglobin Concent 32.9 32.0-36.0 g/dL Red Cell Distribution Width 15.7 H 11.8-14.3 % Platelet Count 629 H 140-450 10^3/uL Mean Platelet Volume 8.0 6.9-10.8 fL Neutrophils (%) (Auto) 91.6 H 37.0-80.0 % Lymphocytes (%) (Auto) 2.9 L 10.0-50.0 % Monocytes (%) (Auto) 5.3 0.0-12.0 % Eosinophils (%) (Auto) 0.0 0.0-7.0 % Basophils (%) (Auto) 0.2 0.0-2.0 % Neutrophils # (Auto) 9.2 H 1.6-8.6 10 ^3/uL Lymphocytes # (Auto) 0.3 L 0.4-5.4 10 ^3/uL Monocytes # (Auto) 0.5 0-1.3 10 ^3/uL Eosinophils # (Auto) 0 0-0.8 10 ^3/uL Basophils # (Auto) 0 0-0.2 10 ^3/uL Nucleated Red Blood Cells 0.1 % Sodium Level 136 136-145 mmol/L Potassium Level 3.6 3.5-5.1 mmol/L Chloride Level 101 98-107 mmol/L Carbon Dioxide Level 22 20-31 mmol/L Anion Gap 13 5-15 Blood Urea Nitrogen 29 H 9-23 mg/dL Creatinine 0.88 0.550-1.02 mg/dL Glomerular Filtration Rate Calc 67 >90 mL/min BUN/Creatinine Ratio 33.0 H 10.0-20.0 Serum Glucose 254 H 74-106 mg/dL Calcium Level 9.4 8.7-10.4 mg/dL B-Type Natriuretic Peptide 628.85 0-100 pg/mL Urine Color Yellow Yellow Urine Clarity Clear Clear Urine pH 6.0 5.0-9.0 Urine Specific [place] 1.031 1.001-1.035 Urine Protein 3+ H Negative Urine Ketones Trace Negative Urine Blood 2+ H Negative /uL Urine Nitrite Negative Negative Urine Bilirubin Negative Negative Urine Urobilinogen Normal Negative mg/dL Urine Leukocyte Esterase 1+ Negative /uL Urine RBC 26 0 - 4 /hpf Urine Microscopic WBC 15 H 0-5 /HPF Urine Squamous Epithelial Cells Few <5 /hpf Urine Bacteria None seen None Seen /hpf Urine Mucus Few None Seen Urine Glucose 3+ H Normal mg/dL PROCEDURE(s): CXRP - CHEST PORTABLE REASON: sob ORDER NUMBER(s): [id number], ACCESSION NUMBER(s): [id number] CHEST RADIOGRAPH Indication: sob Technique: Single frontal view of the chest was obtained Comparison: XY CHEST PORTABLE on DOS: 01/27/25 FINDINGS: Lines and Tubes: None Lungs: Severe bilateral airspace disease. Pleura: No effusion. No pneumothorax. Cardiomediastinal contours: Cardiomegaly. Bones: No acute osseous abnormality. IMPRESSION: 1. Severe bilateral airspace disease reflecting multifocal pneumonia. Assessment/Plan Assessment/Plan # bilateral multifocal pneumonia # acute respiratory failure likely secondary to above # rule out sepsis # acute UTI # hx of pleural effusion Admit to telemetry unit Empiric antibiotic Blood, sputum, and urine culture IV fluid resuscitation- monitor for overload DuoNeb treatment O2 supplement Continue with diuresis # AFib with RVR, CHADS-VASc score 7, PWT-DEVO-Cdshf 2 # HFpEF previous echo EF 60% # Severe hypomagnesemia Continue with antiarrhythmic and anticoagulant Repeat echocardiogram Repleted electrolytes to keep Mg >2.0 and K 4.0--Given mg IV 4 gram, Mag oxide 400mg bid Cardiology consult # hypertension Continue with amlodipine Hydralazine as needed # diabetes type 2 Insulin sliding scale # GERD PPI Medical plan discussed with patient and daughter at the bedside Plan discussed with: Patient My Orders Orders - JERALD GUSMAN Procedure Category Date Status Time Admit ADMIT 03/07/25 Verified 13:56 Code Status CODE 03/07/25 Verified 13:56 Ondansetron Hcl PHA 03/07/25 Verified (Zofran) 14:00 Fall Risk Precautions JOSEPH 03/07/[address] 13:56 Complete Blood Count LAB 03/08/25 Verified 04:00 Comprehensive LAB 03/08/25 Verified Metabolic Panel 04:00 Cardiac DIET 03/07/25 Verified Diet-2gna,Lofat,Lochol Dinner Condition: Fair JOSEPH 03/07/25 Verified 13:56 Nitroglycerin PHA 03/07/25 Verified Sublingual (Ntrostat 14:00 Morphine Sulfate PHA 03/07/25 Verified Injection 14:00 Stat Ekg For Chest JOSEPH 03/07/25 Verified Pain 13:56 Notify Md Of Changes JOSEPH 03/07/25 Verified From Base 13:56 Plasma Center Nurse For JOSEPH 03/07/25 Verified 24 Hours 13:56 Emergency Dysrhythmia JOSEPH 03/07/25 Verified Protocol 13:56 Rhythm Strips Once JOSEPH 03/07/25 Verified Every Shift 13:56 Oxygen By Nasal RT 03/07/25 Verified Cannula 13:56 Magnesium LAB 03/07/25 Verified 13:56 Glucose Blood PHA 03/07/25 Verified (Accu-Chek Comfort 17:00 Mild Sliding Scale PHA 03/07/25 Verified 17:00 Dextrose 50% Syringe PHA 03/07/25 Verified 14:00 Date of Service: March 07, 2025 Billing Provider: JERALD GUSMAN Common Visit Codes: [id number] INP/OBS CARE (HIGH) JERALD GUSMAN March 07, 2025 14:02
[2025-03-07] MEDS: metroNIDAZOLE 500MG/100ML 100 ML IV ONE (14:58)
[2025-03-07] MEDS ORDERED: IPRATROPIUM BROM 0.5 MG/2.5ML INH SOL NEB PRN (15:30)
[2025-03-07] MEDS ORDERED: hydrALAZINE HCL 20 MG/ML VL IV PRN (15:30)
[2025-03-07] MEDS: MAGNESIUM SULFATE 1GM/100ML 100 ML IV SCH (15:53)
[2025-03-07] MEDS: POTASSIUM CHL 20 Meq TABLET PO ONE (15:54)
[2025-03-07] MEDS: FUROSEMIDE 20 MG/2 ML VIAL IV ONE (15:55)
[2025-03-07] MEDS: SODIUM CHLORIDE 0.9% 1,000 ML IV SCH (15:55)
[2025-03-07] MEDS: amLODIPine BESYLATE 5 MG TAB PO SCH (16:03)
[2025-03-07] MEDS: MEROPENEM 1GM IVPB 50 ML IV SCH (16:09)
[2025-03-07] MEDS: PANTOPRAZOLE 40 MG/10 ML VIAL INJ IV ONE (16:32)
--- NOTE | 2025-03-07 16:39 | DVH ---
CHEST RADIOGRAPH Indication: pna Technique: Single frontal view of the chest was obtained Comparison: XY CHEST PORTABLE on DOS: 03/07/25, XY CHEST PORTABLE on DOS: 01/27/25 FINDINGS/IMPRESSION: Similar to slightly worsening severe multifocal airspace disease. No pneumothorax. Suggestion of a small right pleural effusion. Cardiomegaly.
[2025-03-07] MEDS: ACCU-CHEK COMFORT CURVE STRIP VI SCH (17:24)
[2025-03-07] MEDS: InsuLIN REG 1unit/0.01ml Soln (100units/ml) SC SCH (17:27)
[2025-03-07] MEDS: ALBUTEROL SULF 2.5 MG/0.5ML(0.5%) NEB SOLN NEB SCH (17:28)
[2025-03-07] MEDS: IPRATROPIUM BROM 0.5 MG/2.5ML INH SOL NEB SCH (17:36)
[2025-03-07] MEDS ORDERED: IOHEXOL 300 MG/ML 100ML BOTTLE IJ ONE (17:56)
--- NOTE | 2025-03-07 18:19 | DVHINCON2 ---
Date Seen: March 07, 2025 Referring Physician CARLTON Martin Reason for Consultation A-fib with RVR History of Present Illness This is a Croatian speaking 79-year-old female who presented to the emergency room with a chief complaint of generalized weakness since Saturday. Patient's Occitan is limited. She was found tachypneic with accessory muscle use and daughter at bedside who stated the patient has developed progressive generalized weakness associated with lower back pain, a cough, loss of appetite, and increased shortness of breath prompting them to seek further medical attention. Per daughter, they stopped administering Lasix therapy for approximately one week as she was having "urinary issues." She had a recent admission where she was found with a large pleural effussion undergoping thoracentesis and with recommendations for Lasix therapy. Follows up in the outpatient setting with an unknown primary interactive project manager and will transferring care with Dr. Contreras next month. 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 Past Medical History Past medical history reviewed. No other significant than mentioned above. Past Surgical History Embolectomy and brachial artery repair, 08/2023 Cauterization of duodenal ulcer, 10/2014 Family History: Diabetes mellitus G8 SISTER FH: arthritis G8 BROTHER FH: back pain G8 FATHER Hypertension G8 BROTHER G8 SISTER Psychiatric condition G8 MOTHER Family History Family history reviewed. Social History Denies the use of illicit drugs, alcohol, or tobacco use. Allergies: Coded Allergies: NO KNOWN ALLERGIES (Unverified , 12/10/17) Home Meds Active Scripts Furosemide (Lasix) 40 Mg Tab, 40 MG PO daiy for 30 Days, #30 TAB 3 Refills Prov:INFANTE,HUBER Raman ZAIDI 01/29/25 Reported Medications Metformin Hydrochloride (Metformin Hcl) 500 Mg Tab, 1 TAB PO for 90 Days, #180 01/27/25 Apixaban Base (ELIQUIS) 5 Mg Tab, 1 TAB PO BID for 90 Days, #180 01/27/25 Omeprazole (Omeprazole Dr) 40 Mg Cap, 1 CAP PO DAILY for 90 Days, #90 01/27/25 Amlodipine Besylate (Amlodipine Besylate) 2.5 Mg Tab, 1 TAB PO DAILY for 90 D ays, #90 09/08/14 Home Meds Home medications reviewed. Current Medications Current Medications Medications (Trade) Dose Ordered Sig/Berhane Route PRN Reason Start Time Stop Time Status Last Admin Ondansetron HCl (Zofran) 4 mg Q4HP PRN IV NAUSEA / VOMITING 03/07/25 14:00 Nitroglycerin (Ntrostat Sublingual) 0.4 mg Q5MINP PRN SL FOR CHEST PAIN 03/07/25 14:00 Morphine Sulfate 2 mg Q30M PRN IV FOR CHEST PAIN 03/07/25 14:00 Diagnostic Test (Pha) (Accu-Chek Comfort Curve T) 1 strip ACHS 03/07/25 17:00 03/07/25 17:24 Insulin Human Regular (InsuLIN R) ACHS SC 03/07/25 17:00 03/07/25 17:27 Dextrose 50 ml UD PRN IV Blood Sugar LESS THAN 60 03/07/25 14:00 Magnesium Sulfate/ Dextrose 100 ml @ 100 mls/hr Q1H IV 03/07/25 15:15 03/07/25 19:14 03/07/25 17:37 Magnesium Oxide (Mag-Ox Tablet) 400 mg BID PO 03/07/25 22:00 Sodium Chloride 1,000 ml @ 75 mls/hr [id number] IV 03/07/25 15:15 03/07/25 15:55 Levofloxacin/ Dextrose 100 ml @ 100 mls/hr DAILY IV 03/08/25 10:00 03/07/25 16:01 DC Apixaban (Eliquis) 5 mg BID PO 03/07/25 22:00 Amlodipine Besylate (Norvasc Tablet) 2.5 mg DAILY PO 03/07/25 15:45 03/07/25 16:03 Hydralazine HCl (Apresoline Injection) 10 mg Q6HP PRN IV SBP>150 03/07/25 15:30 Albuterol (Ventolin Medneb) 2.5 mg Q4HPRN PRN NEB SHORTNESS OF BREATH 03/07/25 15:30 Albuterol (Ventolin Medneb) 2.5 mg Q4HR NEB 03/07/25 18:00 03/07/25 17:28 Ipratropium [place] (Atrovent Medneb) 0.5 mg Q4HPRN PRN NEB SHORTNESS OF BREATH 03/07/25 15:30 Ipratropium [place] (Atrovent Medneb) 0.5 mg Q4HR NEB 03/07/25 18:00 03/07/25 17:36 Furosemide (Lasix Injection) 20 mg DAILY IV 03/08/25 10:00 Potassium Chloride (Klor-Con Tablet) 20 meq DAILY PO 03/08/25 10:00 Pantoprazole Sodium (Protonix Tablet) 40 mg DAILY@0700 PO 03/08/25 10:00 03/07/25 16:20 DC Pantoprazole Sodium (Protonix) 40 mg DAILY IV 03/08/25 10:00 Meropenem 50 ml @ 17 mls/hr Q12HR IV 03/07/25 16:09 Review of Systems Constitutional: Generalized weakness Ears, Nose, & Throat: No symptom reported Eyes: No symptom reported Neurological: No symptoms reported Pulmonary/Respiratory: SOB, cough Cardiovascular: No symptom reported Gastrointestinal: No symptom reported Genitourinary: No symptom reported Musculoskeletal: Lower back pain Skin: No symptom reported Psychiatric: No symptom reported Endocrine: No symptom reported Hemotologic/Lymphatic: No symptom reported Vital Signs Vital Signs Date Time Temp Pulse Resp B/P (MAP) Pulse Ox O2 Delivery O2 Flow Rate FiO2 03/07/25 17:45 98.1 108 27 129/84 (99) 96 98.1 03/07/25 17:43 Oxymizer 8 N/A Physical Exam General Appearance: Cooperative. Lethargic. Tachypneic. Moderate acute respiratory distress Head Exam: Normal inspection Neck Exam: Normal inspection. Non-tender. Normal alignment Pulmonary/Respiratory: Chest non-tender. Crackles/coarse bilateral breath sounds Cardiovascular/Chest: Regularly irregular rate and rhythm. AFib 100s-110s bpm. No murmurs. No JVD. Peripheral Pulses: 2+ Radial (R). 2+ Radial (L). 2+ Pedal (R). 2+ Pedal (L) Abdominal Exam: Normal bowel sounds. Soft. Ankle Exam: Negative ankle edema Lower extremities: Negative lower extremity edema Neuro/Mental Status: A&O x3. Coherent Thoughts/Psych: Normal thought pattern. Appropriate mood and affect. Good judgement and insight Appearance: Moderate acute respiratory distress Skin Exam: Normal inspection. Normal color. Warm. Dry Labs/Diagnostic Data Labs Test 03/07/25 16:53 03/07/25 13:23 03/07/25 12:41 03/07/25 10:35 Range/Units POC Glucose 252 H 70-106 mg/dl Troponin I High Sensitivity 10 </=34 ng/L Lactic Acid Level 2.0 0.4-2.0 mmol/L White Blood Count 10.1 4.4-10.8 10^3/uL Red Blood Count 3.05 L 4.0-5.20 10^6/uL Hemoglobin 9.7 L 12.2-16.2 g/dL Hematocrit 29.6 L 36.0-46.0 % Mean Corpuscular Volume 96.9 80.0-100.0 fL Mean Corpuscular Hemoglobin 31.8 28.0-32.0 pg Mean Corpuscular Hemoglobin Concent 32.9 32.0-36.0 g/dL Red Cell Distribution Width 15.7 H 11.8-14.3 % Platelet Count 629 H 140-450 10^3/uL Mean Platelet Volume 8.0 6.9-10.8 fL Neutrophils (%) (Auto) 91.6 H 37.0-80.0 % Lymphocytes (%) (Auto) 2.9 L 10.0-50.0 % Monocytes (%) (Auto) 5.3 0.0-12.0 % Eosinophils (%) (Auto) 0.0 0.0-7.0 % Basophils (%) (Auto) 0.2 0.0-2.0 % Neutrophils # (Auto) 9.2 H 1.6-8.6 10 ^3/uL Lymphocytes # (Auto) 0.3 L 0.4-5.4 10 ^3/uL Monocytes # (Auto) 0.5 0-1.3 10 ^3/uL Eosinophils # (Auto) 0 0-0.8 10 ^3/uL Basophils # (Auto) 0 0-0.2 10 ^3/uL Nucleated Red Blood Cells 0.1 % Sodium Level 136 136-145 mmol/L Potassium Level 3.6 3.5-5.1 mmol/L Chloride Level 101 98-107 mmol/L Carbon Dioxide Level 22 20-31 mmol/L Anion Gap 13 5-15 Blood Urea Nitrogen 29 H 9-23 mg/dL Creatinine 0.88 0.550-1.02 mg/dL Glomerular Filtration Rate Calc 67 >90 mL/min BUN/Creatinine Ratio 33.0 H 10.0-20.0 Serum Glucose 254 H 74-106 mg/dL Calcium Level 9.4 8.7-10.4 mg/dL B-Type Natriuretic Peptide 628.85 0-100 pg/mL Test 03/07/25 10:30 03/07/25 10:00 Range/Units Magnesium Level 0.9 *L 1.6-2.6 mg/dL Urine Color Yellow Yellow Urine Clarity Clear Clear Urine pH 6.0 5.0-9.0 Urine Specific [place] 1.031 1.001-1.035 Urine Protein 3+ H Negative Urine Ketones Trace Negative Urine Blood 2+ H Negative /uL Urine Nitrite Negative Negative Urine Bilirubin Negative Negative Urine Urobilinogen Normal Negative mg/dL Urine Leukocyte Esterase 1+ Negative /uL Urine RBC 26 0 - 4 /hpf Urine Microscopic WBC 15 H 0-5 /HPF Urine Squamous Epithelial Cells Few <5 /hpf Urine Bacteria None seen None Seen /hpf Urine Mucus Few None Seen Urine Glucose 3+ H Normal mg/dL Assessment Sepsis with multifocal pneumonia Acute hypoxic respiratory failure secondary to above Persistent atrial fibrillation with rapid ventricular rate (on Eliquis) Severe hypomagnesemia Tqc-kehapon-glmhbaghz diabetes mellitus Hypertension Plan/Recommendation (Dr. Boston) Recent transthoracic echocardiogram revealed LVEF 65% with moderate degree of LVH one and moderate degree of diastolic dysfunction. AFib with RVR likely secondary to acute decompensation and sepsis. Replete electrolytes as necessary, K>4 and Mg>2. Initiate low-dose beta-kassidy as tolerated. Continue Eliquis therapy (CHADS-VASc score 7 points, [id number] 2 points). Continue antibiotic therapy per primary care team. Monitor ECG changes and notify. Rest of plan of care per clinical course. Thank you for allowing us to participate in this patient's care. Please call if you have any questions or concerns. This medical document was created using an electronic medical record system with voice recognition software and computerized dictation system. Although this document has been carefully reviewed, there might still be some phonetic and typographical errors. Occasional wrong-word or ``sound-alike substitutions may have occurred due to the inherent limitations of voice recognition software. These areas are purely typographical due to imperfections of the software programs and do not reflect any compromise in the patient's medical care. Please read the chart carefully and recognize, using context, where these substitutions have occurred. Plan discussed with: Patient, Daughter, Other NYHA Physical activity limitations: NA Date of Service: March 07, 2025 Billing Provider: RACHANA KELLER Cardiology Common Codes: [id number] INP/OBS CARE (High) RACHANA KELLER March 07, 2025 18:19
--- NOTE | 2025-03-07 18:32 | DVH ---
Procedure: CT CHEST WITH CONTRAST Reason for study/Clinical History: sob Comparison Study: US CHEST ULTRASOUND on DOS: 01/27/25 Exam Date: 03/07/2025 05:59 PM Radiation Dose Information: CT Dose: CTDI volume is 7.0 mGy. Dose-length product is 229 mGy*cm Contrast: Type of contrast: Omni 300 Contrast inject: 99 Contrast wasted:0 TECHNIQUE: After the uneventful administration of intravenous contrast intravenously, CT imaging was performed through the chest. Coronal and sagittal reformations were performed by the technologist. FINDINGS: Lower Neck: Visualized portions of the thyroid gland are unremarkable. Aorta and Vasculature: Normal caliber of thoracic aorta. No pulmonary embolism. Lymph Nodes: Mediastinal lymphadenopathy, for example an AP window lymph node measuring up to 1.7 cm Mediastinum: Cardiomegaly. Lungs: Severe multifocal pneumonia throughout the left lung. Moderate right pleural effusion which is partially loculated anterolaterally. Musculoskeletal: No acute osseous abnormality. Upper abdomen: Limited portions of the upper abdomen are unremarkable. IMPRESSION: 1. Severe multifocal pneumonia throughout the left lung. 2. Moderate right pleural effusion which is partially loculated anterolaterally 3. Mediastinal lymphadenopathy. 4. No pulmonary embolism identified. All CT scans at this medical facility are performed using dose modulation techniques as appropriate t o a performed exam including the following: Automated exposure control was utilized; adjustment of th e MA and/or KV according to patient size; and use of iterative reconstruction technique.
[2025-03-07] MEDS: AMIODARONE 360mg/200mL PREMIX 200 ML IV SCH (20:31)
[2025-03-07] MEDS: APIXABAN 5 MG TAB PO SCH (22:05)
[2025-03-07] MEDS: METOPROLOL TARTRATE 25 MG TAB PO SCH (22:05)
[2025-03-07] MEDS: MAGNESIUM OXIDE 400 MG TAB PO SCH (22:05)
[2025-03-07] MEDS: MAGNESIUM SULFATE 1GM/100ML 100 ML IV ONE (22:19)
[2025-03-08] VITALS (14 sets, daily range): BP systolic 106–133; BP diastolic 59–77; PULSE 64–91; RESP 16–24; TEMP 96.5–97.6; O2SAT 92–100
[2025-03-08] MEDS: ALBUTEROL SULF 2.5 MG/0.5ML(0.5%) NEB SOLN NEB PRN (00:48)
[2025-03-08] MEDS: IPRATROPIUM BROM 0.5 MG/2.5ML INH SOL NEB PRN (00:48)
[2025-03-08 07:35] LABS: Alanine Aminotransferase 34 U/L (7-40); Albumin 3.8 g/dL (3.2-4.8); Alkaline Phosphatase 105 U/L (46-116); Anion Gap 13 (5-15); BUN/Creatinine Ratio 34.5 (10.0-20.0); Calcium 8.9 mg/dL (8.7-10.4); Carbon Dioxide 23 mmol/L (20-31); Chloride 101 mmol/L (98-107); Potassium 4.2 mmol/L (3.5-5.1); Sodium 137 mmol/L (136-145); Total Protein 6.8 g/dL (5.7-8.2)
[2025-03-08 07:36] LABS: Bilirubin, Total 0.7 mg/dL (0.2-1.0)
[2025-03-08 07:37] LABS: Basophils # (auto) 0 10 ^3/uL (0-0.2); Eosinophils # (auto) 0 10 ^3/uL (0-0.8); Hemoglobin 9.8 g/dL (12.2-16.2); Lymphocytes # (auto) 0.4 10 ^3/uL (0.4-5.4); Neutrophils # (auto) 10.8 10 ^3/uL (1.6-8.6); White Blood Cell 11.8 10^3/uL (4.4-10.8)
[2025-03-08 07:39] LABS: Hematocrit 28.7 % (36.0-46.0); Mean Corpuscular Hemoglobin 32.4 pg (28.0-32.0); Mean Corpuscular Volume 95.3 fL (80.0-100.0); Monocytes # (auto) 0.7 10 ^3/uL (0-1.3); Platelet Count (auto) 577 10^3/uL (140-450); Red Blood Cells 3.01 10^6/uL (4.0-5.20); Red Cell Distribution Width 15.6 % (11.8-14.3)
[2025-03-08 07:41] LABS: Aspartate Aminotransferase 79 U/L (13-40); Blood Urea Nitrogen 30 mg/dL (9-23); Glucose 183 mg/dL (74-106)
[2025-03-08] MEDS ORDERED: PANTOPRAZOLE 40 MG TAB PO SCH (10:00)
[2025-03-08] MEDS ORDERED: levoFLOXacin 500MG 100 ML IV SCH (10:00)
[2025-03-08] MEDS: PANTOPRAZOLE 40 MG/10 ML VIAL INJ IV SCH (10:52)
[2025-03-08] MEDS: POTASSIUM CHL 20 Meq TABLET PO SCH (10:56)
[2025-03-08] MEDS: FUROSEMIDE 20 MG/2 ML VIAL IV SCH (11:03)
--- NOTE | 2025-03-08 11:27 | DVHPN2 ---
Consult Progress Note Date Seen: March 08, 2025 Subjective Review of Systems: CVS:Normal, RESPIRATORY:Abnormal, NEURO:Normal Other Systems: C/o SOB Objective vital signs Vital Sign Date Time Temp Pulse Resp B/P (MAP) Pulse Ox O2 Delivery O2 Flow Rate FiO2 03/08/25 11:03 132/76 03/08/25 10:53 90 03/08/25 10:00 97 Oxymizer 8.0 03/08/25 10:00 64 64 03/08/25 08:48 96.5 17 96.5 Total Intake and Output 03/07/25 03/07/25 03/08/25 15:00 23:00 07:00 Intake Total 1100 ml 1093.33 ml 250 ml Output Total 850 ml Balance 1100 ml 1093.33 ml -600 ml medications Current Medications Medications Dose Ordered Sig/Berhane Route Start Time Stop Time Status Last Admin Dose Admin Ondansetron HCl 4 mg Q4HP PRN IV 03/07/25 14:00 Nitroglycerin 0.4 mg Q5MINP PRN SL 03/07/25 14:00 Morphine Sulfate 2 mg Q30M PRN IV 03/07/25 14:00 Diagnostic Test (Pha) 1 strip ACHS 03/07/25 17:00 03/08/25 07:00 1 STRIP Insulin Human Regular ACHS SC 03/07/25 17:00 03/07/25 17:27 6 UNITS Dextrose 50 ml UD PRN IV 03/07/25 14:00 Magnesium Oxide 400 mg BID PO 03/07/25 22:00 03/08/25 10:53 400 MG Sodium Chloride 1,000 ml @ 75 mls/hr [id number] IV 03/07/25 15:15 03/07/25 15:55 75 MLS/HR Apixaban 5 mg BID PO 03/07/25 22:00 03/08/25 10:53 5 MG Hydralazine HCl 10 mg Q6HP PRN IV 03/07/25 15:30 Albuterol 2.5 mg Q4HPRN PRN NEB 03/07/25 15:30 03/08/25 00:48 2.5 MG Furosemide 20 mg DAILY IV 03/08/25 10:00 03/08/25 11:03 20 MG Potassium Chloride 20 meq DAILY PO 03/08/25 10:00 03/08/25 10:56 20 MEQ Pantoprazole Sodium 40 mg DAILY IV 03/08/25 10:00 03/08/25 10:52 40 MG Meropenem 50 ml @ 17 mls/hr Q12HR IV 03/07/25 16:09 03/08/25 10:51 17 MLS/HR Metoprolol Tartrate 12.5 mg BID PO 03/07/25 22:00 03/08/25 10:53 12.5 MG Ipratropium [place] 0.5 mg Q6HPRN PRN NEB 03/08/25 00:30 03/08/25 00:48 0.5 MG Examination: LUNGS:Abnormal (Coarse BLS. O2 via Oxymizer 8LPM), CVS:Normal (A- fib controlled rate), NEURO:Normal laboratory and microbiology Laboratory Tests 03/08/25 04:40 Test 03/08/25 04:40 Range/Units Serum Glucose 183 H 74-106 mg/dL Problem List/Assessment/Plan Problem List/Assessment/Plan Sepsis with multifocal pneumonia/UTI Acute hypoxic respiratory failure secondary to above Persistent atrial fibrillation with rapid ventricular rate (on Eliquis) Severe hypomagnesemia Pjp-jultkew-ewnbnhlcn diabetes mellitus Hypertension Plan/Recommendation (Dr. Boston) Recent transthoracic echocardiogram revealed LVEF 65% with moderate degree of LVH one and moderate degree of diastolic dysfunction. AFib with RVR secondary to acute decompensation and sepsis. Now controlled rate. Replete electrolytes as necessary, K>4 and Mg>2. Continue low-dose beta-kassidy as tolerated. Continue Eliquis therapy (CHADS-VASc score 7 points, [id number] 2 points). Continue antibiotic therapy per primary care team. Influenza and COVID-19 swabs pending. Follow-up with Dr. Contreras as scheduled in the outpatient setting. There is no further cardiac work-up indicated at this time. Kindly call if in need to re-consult.. Thank you for allowing us to participate in this patient's care. This medical document was created using an electronic medical record system with voice recognition software and computerized dictation system. Although this document has been carefully reviewed, there might still be some phonetic and typographical errors. Occasional wrong-word or ``sound-alike substitutions may have occurred due to the inherent limitations of voice recognition software. These areas are purely typographical due to imperfections of the software programs and do not reflect any compromise in the patient's medical care. Please read the chart carefully and recognize, using context, where these substitutions have occurred. Plan discussed with: Patient, Daughter, Son, Other Date of Service: March 08, 2025 Billing Provider: RACHANA KELLER Cardiology Common Codes: [id number] INP/OBS CARE(Mod) RACHANA KELLER March 08, 2025 11:27
--- NOTE | 2025-03-08 12:41 | DVHPN2 ---
Changes from previous H/P or p: No Changes Eyes: No Pain, No Vision change, No Conjunctivae inflammation, No Eyelid inflammation, No Other, No Redness ENT: No Ear pain, No Ear discharge, No Nose pain, No Nose discharge, No Nose congestion, No Mouth pain, No Mouth swelling, No Throat pain, No Throat swelling, No Other Cardiovascular: No Chest Pain, No Palpitations, No Orthopnea, No Paroxysmal Noc. Dyspnea, No Edema, No Lt Headedness, No Other Respiratory: Cough; No Dry; Shortness of breath, SOB with excertion; No Wheezing, No Hemoptysis, No Pleuritic Pain, No Sputum; Other (Congestion) Gastrointestinal: No Nausea, No Vomiting, No Abdominal Pain, No Diarrhea, No Constipation, No Melena, No Hematochezia, No Other Genitourinary: No Dysuria, No Frequency, No Incontinence, No Hematuria, No Retention, No Other Musculoskeletal: No other, No neck pain, No shoulder pain, No arm pain, No back pain, No hand pain, No leg pain, No foot pain Objective Vitals Vital Signs Date Time Temp Pulse Resp B/P (MAP) Pulse Ox O2 Delivery O2 Flow Rate FiO2 03/08/25 11:03 132/76 03/08/25 10:53 90 03/08/25 10:00 97 Oxymizer 8.0 03/08/25 10:00 64 64 03/08/25 08:48 96.5 17 96.5 Intake/Output Intake and Output 03/08/25 07:00 Intake Total 2443.33 ml Output Total 850 ml Balance 1593.33 ml Intake Oral 610 ml IV Total 1833.33 ml Output Urine Total 850 ml Medications Current Medications Medications Dose Ordered Sig/Berhane Route Start Time Stop Time Status Last Admin Dose Admin Ondansetron HCl 4 mg Q4HP PRN IV 03/07/25 14:00 Nitroglycerin 0.4 mg Q5MINP PRN SL 03/07/25 14:00 Morphine Sulfate 2 mg Q30M PRN IV 03/07/25 14:00 Diagnostic Test (Pha) 1 strip ACHS 03/07/25 17:00 03/08/25 07:00 1 STRIP Insulin Human Regular ACHS SC 03/07/25 17:00 03/07/25 17:27 6 UNITS Dextrose 50 ml UD PRN IV 03/07/25 14:00 Magnesium Oxide 400 mg BID PO 03/07/25 22:00 03/08/25 10:53 400 MG Sodium Chloride 1,000 ml @ 75 mls/hr [id number] IV 03/07/25 15:15 03/07/25 15:55 75 MLS/HR Apixaban 5 mg BID PO 03/07/25 22:00 03/08/25 10:53 5 MG Hydralazine HCl 10 mg Q6HP PRN IV 03/07/25 15:30 Albuterol 2.5 mg Q4HPRN PRN NEB 03/07/25 15:30 03/08/25 00:48 2.5 MG Furosemide 20 mg DAILY IV 03/08/25 10:00 03/08/25 11:03 20 MG Potassium Chloride 20 meq DAILY PO 03/08/25 10:00 03/08/25 10:56 20 MEQ Pantoprazole Sodium 40 mg DAILY IV 03/08/25 10:00 03/08/25 10:52 40 MG Meropenem 50 ml @ 17 mls/hr Q12HR IV 03/07/25 16:09 03/08/25 10:51 17 MLS/HR Metoprolol Tartrate 12.5 mg BID PO 03/07/25 22:00 03/08/25 10:53 12.5 MG Ipratropium [place] 0.5 mg Q6HPRN PRN NEB 03/08/25 00:30 03/08/25 00:48 0.5 MG Laboratory Results Laboratory Tests 03/08/25 04:40 Chemistry Test 03/08/25 04:40 Albumin 3.8 g/dL (3.2-4.8) Calcium Level 8.9 mg/dL (8.7-10.4) Magnesium Level 2.4 mg/dL (1.6-2.6) # Total Protein 6.8 g/dL (5.7-8.2) LFT Test 03/08/25 04:40 Alanine Aminotransferase (ALT) 34 U/L (7-40) Alkaline Phosphatase 105 U/L (46-116) Aspartate Amino Transferase (AST) 79 U/L (13-40) H Total Bilirubin 0.7 mg/dL (0.2-1.0) Urinalysis Test 03/07/25 10:00 Urine Color Yellow (Yellow) Urine Clarity Clear (Clear) Urine pH 6.0 (5.0-9.0) Urine Specific [place] 1.031 (1.001-1.035) Urine Protein 3+ (Negative) H Urine Ketones Trace (Negative) Urine Blood 2+ /uL (Negative) H Urine Nitrite Negative (Negative) Urine Bilirubin Negative (Negative) Urine Urobilinogen Normal mg/dL (Negative) Urine Leukocyte Esterase 1+ /uL (Negative) Urine RBC 26 /hpf (0 - 4) Urine Microscopic WBC 15 /HPF (0-5) H Urine Squamous Epithelial Cells Few /hpf (<5) Urine Bacteria None seen /hpf (None Seen) Urine Mucus Few (None Seen) Urine Glucose 3+ mg/dL (Normal) H Microbiology Microbiology Date/Time Source Procedure Growth Status 03/07/25 10:35 Blood Blood Culture - Preliminary NO GROWTH AFTER 24 HOURS OF INCUBATION. Resulted Labs and/or images reviewed: Labs reviewed by me, Image(s) reviewed by me Assessment/Plan Assessment/Plan Acute hypoxic respiratory failure: Oxygen by nasal cannula Acute bilateral pneumonia: Meropenem albuterol Atrovent Solu-Medrol, consult for pulmonology Dr. Ledesma Right pleural effusion Diabetes: Insulin sliding scale AFib: Eliquis Acute UTI: Continue meropenem urine cultures pending Hypertension Chronic systolic congestive heart failure with preserved ejection fraction CT chest without contrast shows bilateral pneumonia mild pleural effusion COVID test pending Flu test pending Blood cultures negative Daughter and POA Eugenia [phone] at bedside Time spent 65 minutes Advanced care planning time 20 minutes Patient is full code Plan discussed with: Patient Date of Service: March 08, 2025 Billing Provider: DAISY BARAHONA MD Common Visit Codes: [id number] CARE 30-74 MIN DAISY BARAHONA MD March 08, 2025 12:41
[2025-03-08 12:48] LABS: COVID19 ANTIGEN SOFIA FIA NEGATIVE (NEGATIVE); Rapid Influenza A Negative (Negative); Rapid Influenza B Negative (Negative)
[2025-03-08] MEDS: methylPREDNISolone SOD SUCC 40 MG/ML VL IV SCH (14:42)
--- NOTE | 2025-03-08 15:22 | DVHINCON2 ---
Date of service: March 08, [address] Mario Barahona Reason for Consultation Acute respiratory failure History of Present Illness History Source: Patient Exam Limitations: No limitations HPI Patient is a 79-year old lady with a history of hypertension and diabetes who presented with shortness of breath, cough and low grade fever. Was seen in the emergency room where she was found to be in afiv with RVR and was started on Amiodarone drip. Chest x-ray findings were consistent with pneumonia and pulmonology was consulted to assist in management. Home Meds Active Scripts Furosemide (Lasix) 40 Mg Tab, 40 MG PO daiy for 30 Days, #30 TAB 3 Refills Prov:INFANTEHUBER Barnes T DO 01/29/25 Reported Medications Hydrocortone (Hydrocortisone 1%) 1 Applic Ap, 1 APPLIC EX BID PRN for 15 Days, #29 APPLY 1 APPLICATION EXTERNALLY TWICE DAILY NEEDED DO NOT USE LONGER THAN 14 DAYS. 03/08/25 Metformin Hydrochloride (Metformin Hcl) 500 Mg Tab, 1 TAB PO BID for 90 Days, #180 01/27/25 Apixaban Base (ELIQUIS) 5 Mg Tab, 1 TAB PO BID for 90 Days, #180 01/27/25 Omeprazole (Omeprazole Dr) 40 Mg Cap, 1 CAP PO DAILY for 90 Days, #90 01/27/25 Amlodipine Besylate (Amlodipine Besylate) 2.5 Mg Tab, 1 TAB PO DAILY for 90 Days, #90 09/08/14 Past Medical History Cardiac: HTN Pulmonary: No pertinent Hx Central Nervous System: No pertinent Hx GI: No pertinent Hx Hemotology/Oncology: No pertinent Hx Hepatobiliary: No pertinent Hx Psychiatric: No pertinent Hx Musculoskeletal: No pertinent Hx Rheumotologic: No pertinent Hx Infectious Disease: No peritnent Hx ENT: No pertinent Hx Renal/: No pertinent Hx Endocrine: NIDDM Dermatology: No pertinent Hx Family History: Hypertension Patient Family History: Diabetes mellitus G8 SISTER FH: arthritis G8 BROTHER FH: back pain G8 FATHER Hypertension G8 BROTHER G8 SISTER Psychiatric condition G8 MOTHER Smoker: No Hx (Negative) Alocohol: None Drugs: None Lives with: With family Domestic Violence: Neg Review of Systems Constitutional: Fever Ears, Nose, & Throat: No symptom reported Eyes: No symptom reported Pulmonary/Respiratory: Dyspnea, Cough Cardiovascular: No symptom reported Gastrointestinal: No symptom reported Genitourinary: No symptom reported Musculoskeletal: No symptom reported Skin: No symptom reported Psychiatric: No symptom reported Endocrine: No symptom reported Hemotologic/Lymphatic: No symptom reported H&P Exam Vital Signs Vital Signs Date Time Temp Pulse Resp B/P (MAP) Pulse Ox O2 Delivery O2 Flow Rate FiO2 03/08/25 12:53 70 17 131/75 (93) 99 03/08/25 10:00 Oxymizer 8.0 03/08/25 10:00 64 64 03/08/25 08:48 96.5 96.5 General Appeara: Well developed, Well nourished, Normal Appearance Head Exam: Normal inspection Neck Exam: Normal inspection, Non-tender, Normal alignment Eye Exam: bilateral eye Normal inspection, bilateral eye PERRL, bilateral eye EOMI Ear Exam: bilateral ear Auricle normal, bilateral ear Canal normal, bilateral ear TM normal Nasal Exam: Normal inspection Mouth: Normal Inspection Pulmonary/Respiratory: Decreased breath sounds Cardiovascular/Chest: Normal inspection Peripheral Pulses: 4+ Radial (R), 4+ Radial (L), 4+ Brachial (R), 4+ Brachial (L) Abdominal Exam: Normal bowel sounds Labs/Xrays Labs Test 03/08/25 12:11 03/08/25 11:55 03/08/25 04:40 03/07/25 13:23 Range/Units POC Glucose 200 H 70-106 mg/dl Influenza Type A Antigen Negative Negative Influenza Type B Antigen Negative Negative SARS-CoV-2 Antigen (Rapid) Negative NEGATIVE White Blood Count 11.8 H 4.4-10.8 10^3/uL Red Blood Count 3.01 L 4.0-5.20 10^6/uL Hemoglobin 9.8 L 12.2-16.2 g/dL Hematocrit 28.7 L 36.0-46.0 % Mean Corpuscular Volume 95.3 80.0-100.0 fL Mean Corpuscular Hemoglobin 32.4 H 28.0-32.0 pg Mean Corpuscular Hemoglobin Concent 34.0 32.0-36.0 g/dL Red Cell Distribution Width 15.6 H 11.8-14.3 % Platelet Count 577 H 140-450 10^3/uL Mean Platelet Volume 8.0 6.9-10.8 fL Neutrophils (%) (Auto) 91.0 H 37.0-80.0 % Lymphocytes (%) (Auto) 3.0 L 10.0-50.0 % Monocytes (%) (Auto) 6.0 0.0-12.0 % Eosinophils (%) (Auto) 0.0 0.0-7.0 % Basophils (%) (Auto) 0.0 0.0-2.0 % Neutrophils # (Auto) 10.8 H 1.6-8.6 10 ^3/uL Lymphocytes # (Auto) 0.4 0.4-5.4 10 ^3/uL Monocytes # (Auto) 0.7 0-1.3 10 ^3/uL Eosinophils # (Auto) 0 0-0.8 10 ^3/uL Basophils # (Auto) 0 0-0.2 10 ^3/uL Nucleated Red Blood Cells 0.0 % Sodium Level 137 136-145 mmol/L Potassium Level 4.2 3.5-5.1 mmol/L Chloride Level 101 98-107 mmol/L Carbon Dioxide Level 23 20-31 mmol/L Anion Gap 13 5-15 Blood Urea Nitrogen 30 H 9-23 mg/dL Creatinine 0.87 0.550-1.02 mg/dL Glomerular Filtration Rate Calc 68 >90 mL/min BUN/Creatinine Ratio 34.5 H 10.0-20.0 Serum Glucose 183 H 74-106 mg/dL Calcium Level 8.9 8.7-10.4 mg/dL Magnesium Level 2.4 # 1.6-2.6 mg/dL Total Bilirubin 0.7 0.2-1.0 mg/dL Aspartate Amino Transferase (AST) 79 H 13-40 U/L Alanine Aminotransferase (ALT) 34 7-40 U/L Alkaline Phosphatase 105 46-116 U/L Total Protein 6.8 5.7-8.2 g/dL Albumin 3.8 3.2-4.8 g/dL Troponin I High Sensitivity 10 </=34 ng/L Test 03/07/25 12:41 03/07/25 10:35 03/07/25 10:00 Range/Units Lactic Acid Level 2.0 0.4-2.0 mmol/L B-Type Natriuretic Peptide 628.85 0-100 pg/mL Urine Color Yellow Yellow Urine Clarity Clear Clear Urine pH 6.0 5.0-9.0 Urine Specific [place] 1.031 1.001-1.035 Urine Protein 3+ H Negative Urine Ketones Trace Negative Urine Blood 2+ H Negative /uL Urine Nitrite Negative Negative Urine Bilirubin Negative Negative Urine Urobilinogen Normal Negative mg/dL Urine Leukocyte Esterase 1+ Negative /uL Urine RBC 26 0 - 4 /hpf Urine Microscopic WBC 15 H 0-5 /HPF Urine Squamous Epithelial Cells Few <5 /hpf Urine Bacteria None seen None Seen /hpf Urine Mucus Few None Seen Urine Glucose 3+ H Normal mg/dL Microbiology Date/Time Source Procedure Growth Status 03/07/25 10:35 Blood Blood Culture - Preliminary NO GROWTH AFTER 24 HOURS OF INCUBATION. Resulted Assessment/Plan Plan Impression Acute hypoxemic respiratory failure Bilateral pleural effusions Pneumonia Atelectasis Patient seen and examined Events Low oxygen requirements On 2 liters nasal cannula Vital signs stable Labs and imaging reviewed CT of the chest shows bilateral pleural effusions, greater on the right Not amenable to thoracentesis Management Supplemental oxygen Titrate to maintain sats 90% or above Incentive spirometry Antibiotics Bronchodilators Monitor renal function Monitor electrolytes Supplement as needed F/u cardiology Conservative management DVT prophylaxis Plan discussed with: Patient ADRY BENTLEY MD March 08, 2025 15:22
[2025-03-09] VITALS (12 sets, daily range): BP systolic 100–149; BP diastolic 55–78; PULSE 70–93; RESP 16–18; TEMP 97.4–98.5; O2SAT 95–99
[2025-03-09] MEDS: POTASSIUM EFFERVESENT TAB 25 MEQ PO SCH (10:28)
--- NOTE | 2025-03-09 12:40 | DVHPN2 ---
Reviewed: Care Plan, H&P, Labs, Medications, Previous Orders, Radiology Changes from previous H/P or p: No Changes Eyes: No Pain, No Vision change, No Conjunctivae inflammation, No Eyelid inflammation, No Other, No Redness ENT: No Ear pain, No Ear discharge, No Nose pain, No Nose discharge, No Nose congestion, No Mouth pain, No Mouth swelling, No Throat pain, No Throat swelling, No Other Cardiovascular: No Chest Pain, No Palpitations, No Orthopnea, No Paroxysmal Noc. Dyspnea, No Edema, No Lt Headedness, No Other Respiratory: Cough; No Dry; Shortness of breath, SOB with excertion; No Wheezing, No Hemoptysis, No Pleuritic Pain, No Sputum; Other (Congestion) Gastrointestinal: No Nausea, No Vomiting, No Abdominal Pain, No Diarrhea, No Constipation, No Melena, No Hematochezia, No Other Genitourinary: No Dysuria, No Frequency, No Incontinence, No Hematuria, No Retention, No Other Musculoskeletal: No other, No neck pain, No shoulder pain, No arm pain, No back pain, No hand pain, No leg pain, No foot pain Objective Vitals Vital Signs Date Time Temp Pulse Resp B/P (MAP) Pulse Ox O2 Delivery O2 Flow Rate FiO2 03/09/25 12:03 98 Oxymizer 2.0 03/09/25 12:03 31 31 03/09/25 10:38 134/75 03/09/25 10:32 81 03/09/25 09:00 98.5 16 98.5 Intake/Output Intake and Output 03/09/25 07:00 Intake Total 1450 ml Output Total 950 ml Balance 500 ml Intake Oral 400 ml IV Total 1050 ml Output Urine Total 950 ml Medications Current Medications Medications Dose Ordered Sig/Berhane Route Start Time Stop Time Status Last Admin Dose Admin Ondansetron HCl 4 mg Q4HP PRN IV 03/07/25 14:00 Nitroglycerin 0.4 mg Q5MINP PRN SL 03/07/25 14:00 Morphine Sulfate 2 mg Q30M PRN IV 03/07/25 14:00 Diagnostic Test (Pha) 1 strip ACHS 03/07/25 17:00 03/09/25 11:57 1 STRIP Insulin Human Regular ACHS SC 03/07/25 17:00 03/09/25 11:56 4 UNITS Dextrose 50 ml UD PRN IV 03/07/25 14:00 Magnesium Oxide 400 mg BID PO 03/07/25 22:00 03/09/25 10:33 400 MG Sodium Chloride 1,000 ml @ 75 mls/hr [id number] IV 03/07/25 15:15 03/08/25 22:44 75 MLS/HR Apixaban 5 mg BID PO 03/07/25 22:00 03/09/25 10:31 5 MG Hydralazine HCl 10 mg Q6HP PRN IV 03/07/25 15:30 Albuterol 2.5 mg Q4HPRN PRN NEB 03/07/25 15:30 03/08/25 20:24 2.5 MG Furosemide 20 mg DAILY IV 03/08/25 10:00 03/09/25 10:38 20 MG Pantoprazole Sodium 40 mg DAILY IV 03/08/25 10:00 03/09/25 10:30 40 MG Meropenem 50 ml @ 17 mls/hr Q12HR IV 03/07/25 16:09 03/09/25 10:34 17 MLS/HR Metoprolol Tartrate 12.5 mg BID PO 03/07/25 22:00 03/09/25 10:32 12.5 MG Ipratropium Stryker 0.5 mg Q6HPRN PRN NEB 03/08/25 00:30 03/08/25 20:24 0.5 MG Methylprednisolone Sodium Succinate 40 mg Q8HR IV 03/08/25 14:00 03/09/25 06:21 40 MG Potassium Bicarbonate 25 meq DAILY PO 03/09/25 10:00 03/09/25 10:28 25 MEQ Laboratory Results Laboratory Tests 03/08/25 04:40 Urinalysis Test 03/07/25 10:00 Urine Color Yellow (Yellow) Urine Clarity Clear (Clear) Urine pH 6.0 (5.0-9.0) Urine Specific [place] 1.031 (1.001-1.035) Urine Protein 3+ (Negative) H Urine Ketones Trace (Negative) Urine Blood 2+ /uL (Negative) H Urine Nitrite Negative (Negative) Urine Bilirubin Negative (Negative) Urine Urobilinogen Normal mg/dL (Negative) Urine Leukocyte Esterase 1+ /uL (Negative) Urine RBC 26 /hpf (0 - 4) Urine Microscopic WBC 15 /HPF (0-5) H Urine Squamous Epithelial Cells Few /hpf (<5) Urine Bacteria None seen /hpf (None Seen) Urine Mucus Few (None Seen) Urine Glucose 3+ mg/dL (Normal) H Microbiology Microbiology Date/Time Source Procedure Growth Status 03/08/25 18:33 Voided Urine Urine Culture - Preliminary Resulted 03/07/25 10:35 Blood Blood Culture - Preliminary NO GROWTH AFTER 48 HOURS OF INCUBATION. Resulted Labs and/or images reviewed: Labs reviewed by me, Image(s) reviewed by me Assessment/Plan Assessment/Plan Acute hypoxic respiratory failure: Oxygen by nasal cannula Acute bilateral pneumonia: Meropenem albuterol Atrovent Solu-Medrol, consult for pulmonology Dr. Ledesma Right pleural effusion Diabetes: Insulin sliding scale AFib: Eliquis Acute UTI: Continue meropenem urine cultures pending Hypertension Chronic systolic congestive heart failure with preserved ejection fraction CT chest without contrast shows bilateral pneumonia mild pleural effusion COVID test NEGATIVE Flu test NEGATIVE Blood cultures negative Daughter and POA h [phone] at bedside Time spent 65 minutes Advanced care planning time 20 minutes Patient is full code Plan discussed with: Patient My Orders Orders - DAISY BARAHONA MD Procedure Category Date Status Time Urine Bacterial RODOLFO 03/08/25 In Process Culture 12:28 *Consult CONS 03/08/25 Transmitted / 12:31 Methylprednisolone PHA 03/08/25 In Process Sod Succ (Solu Medrol 14:00 Mechanical Soft Diet DIET 03/08/25 Transmitted Lunch Potassium Effervesent PHA 03/09/25 In Process Tab (Klor-Con/Ef) 10:00 Date of Service: March 09, 2025 Billing Provider: DAISY BARAHONA MD Common Visit Codes: [id number] INP/OBS CARE(HIGH) DAISY BARAHONA MD March 09, 2025 12:40
--- NOTE | 2025-03-09 19:50 | DVHPN2 ---
Progress Note - Dictate Date Seen: March 09, 2025 Medical Necessity Reason Pt with a Central, PICC or Fol: No vital signs Vital Sign Date Time Temp Pulse Resp B/P (MAP) Pulse Ox O2 Delivery O2 Flow Rate FiO2 03/09/25 17:00 98.1 84 17 149/67 (94) 99 98.1 03/09/25 12:03 Oxymizer 2.0 03/09/25 12:03 31 31 Total Intake and Output 03/08/25 03/08/25 03/09/25 15:00 23:00 07:00 Intake Total 1200 ml 250 ml Output Total 700 ml 250 ml Balance 500 ml 0 ml medications Current Medications Medications Dose Ordered Sig/Berhane Route Start Time Stop Time Status Last Admin Dose Admin Ondansetron HCl 4 mg Q4HP PRN IV 03/07/25 14:00 Nitroglycerin 0.4 mg Q5MINP PRN SL 03/07/25 14:00 Morphine Sulfate 2 mg Q30M PRN IV 03/07/25 14:00 Diagnostic Test (Pha) 1 strip ACHS 03/07/25 17:00 03/09/25 17:00 1 STRIP Insulin Human Regular ACHS SC 03/07/25 17:00 03/09/25 18:12 4 UNITS Dextrose 50 ml UD PRN IV 03/07/25 14:00 Magnesium Oxide 400 mg BID PO 03/07/25 22:00 03/09/25 10:33 400 MG Sodium Chloride 1,000 ml @ 75 mls/hr [id number] IV 03/07/25 15:15 03/08/25 22:44 75 MLS/HR Apixaban 5 mg BID PO 03/07/25 22:00 03/09/25 10:31 5 MG Hydralazine HCl 10 mg Q6HP PRN IV 03/07/25 15:30 Albuterol 2.5 mg Q4HPRN PRN NEB 03/07/25 15:30 03/08/25 20:24 2.5 MG Furosemide 20 mg DAILY IV 03/08/25 10:00 03/09/25 10:38 20 MG Pantoprazole Sodium 40 mg DAILY IV 03/08/25 10:00 03/09/25 10:30 40 MG Meropenem 50 ml @ 17 mls/hr Q12HR IV 03/07/25 16:09 03/09/25 10:34 17 MLS/HR Metoprolol Tartrate 12.5 mg BID PO 03/07/25 22:00 03/09/25 10:32 12.5 MG Ipratropium Hubertus 0.5 mg Q6HPRN PRN NEB 03/08/25 00:30 03/08/25 20:24 0.5 MG Methylprednisolone Sodium Succinate 40 mg Q8HR IV 03/08/25 14:00 03/09/25 13:46 40 MG Potassium Bicarbonate 25 meq DAILY PO 03/09/25 10:00 03/09/25 10:28 25 MEQ laboratory and microbiology Laboratory Tests 03/08/25 04:40 Test 03/08/25 04:40 Range/Units Serum Glucose 183 H 74-106 mg/dL Assessment/Plan Impression Acute hypoxemic respiratory failure Bilateral pleural effusions Pneumonia Atelectasis Patient seen and examined Events Low oxygen requirements On 2 liters nasal cannula No acute events Labs and imaging reviewed CT of the chest shows bilateral pleural effusions, greater on the right Not amenable to thoracentesis Management Supplemental oxygen Titrate to maintain sats 90% or above Incentive spirometry Continue antibiotics F/u cultures Bronchodilators Monitor renal function Monitor electrolytes Supplement as needed F/u cardiology Conservative management DVT prophylaxis Plan discussed with: Patient ADRY BENTLEY MD March 09, 2025 19:49
[2025-03-10] VITALS (12 sets, daily range): BP systolic 117–149; BP diastolic 72–97; PULSE 77–108; RESP 15–20; TEMP 97.4–97.9; O2SAT 93–100
[2025-03-10] MEDS ORDERED: IOHEXOL 350 MG/ML 100ML IJ ONE (08:52)
--- NOTE | 2025-03-10 09:31 | BSKYNEURO ---
[facility] Note # Demographics Consult Type: Acute Stroke Level 1 (0-4.5 hrs) Patient Location: Inpatient First Name: pippa mckeon Last Name: ROCKY Date of : 1945 Age: 79 Gender: Female Facility: [facility] Time of Initial Page (): 03/10/2025 08:55 Time of Return Call (): 03/10/2025 08:55 # HPI History: Unresponsiveness and speech change this morning and facial droop. Inpatient for generalized weakness Last Known Normal: 729 pst Possible Thrombolytic candidate: - on warfarin or NOAC # Scores Time of exam and NIHSS (): 03/10/2025 09:20 Level of Consciousness 1a: [1] = Not alert; but arousable by minor stim LOC Questions 1b: [2] = Answers neither correctly LOC Commands 1c: [2] = Performs neither correctly Best Gaze 2: [0] = Normal Visual 3: [0] = No visual loss Facial Palsy 4: [0] = Normal symmetrical movements Motor Arm Left 5a: [2] = Some effort against gravity Motor Arm Right 5b: [2] = Some effort against gravity Motor Leg Left 6a: [3] = No effort against gravity Motor Leg Right 6b: [3] = No effort against gravity Limb Ataxia 7: [0] = Absent Sensory 8: [0] = Normal Best Language 9: [2] = Severe aphasia Dysarthria 10: [0] = Normal Extinction and Inattention 11: [0] = No abnormality NIHSS Total: 17 # PMH-FH-SH Medications: - NOAC # Assessment Impression: - Altered Mental Status Toxometabolic cause vs stroke. # Plan Thrombolytic/Intervention: Possible IA candidate Thrombolytic Exclusion (3-4.5 hour window): - on anticoagulation Possible IA Candidate: - CTA pending Target Blood Pressure: - SBP < 220 sbp< 180 if cta negative Labs: - Ammonia - B12 - ua - TSH Imaging: (urgency: STAT): - CT Angiogram Head and CT Angiogram Neck AND call back with results if abnormal - CT Head without contrast Medication: - start statin with goal of LDL < 70 asa 325 today if no hemorrhage Other: - If patient has any neurological deterioration please call me back immediately - I have discussed my recommendations with the referring provider - would not pursue stroke work-up if MRI is negative # Logistics Attestation of consult completion: The patient is located at: [facility]. Facility staff participated in the visit. I performed this telemedicine visit from my offsite office utilizing interactive 2 way audio and visual telecommunication technology. Total time spent in telemedicine encounter: I spent 21 minutes reviewing clinical data and/or imaging, obtaining history, examining the patient, communicating with the onsite care team, and in preparation of this report. Critical Care time: 21 minutes of this encounter were critical care time. Due to a high probability of clinically significant, life-threatening neurologic deterioration, the patient required my highest level of preparedness to intervene emergently. I spent this critical care time managing the patient in conjunction with on-site providers who requested my consultation. In addition to the above, this critical care time included recommendation and review of studies, including imaging; arranging an urgent treatment and management plan with on-site providers; evaluation of patient's response to treatment; and documentation. This critical care time was performed to assess and manage the high probability of imminent, life-threatening deterioration that could result in neurologic catastrophe. # Demographics First Name: pippa mckeon Last Name: ROCKY Facility: [facility] Electronically signed at 03/10/2025 09:30 ([place]ing Time) by MD Layo Euceda ZACHARY I MD March 10, 2025 09:31
[2025-03-10 09:50] LABS: Base Excess -1.6 mmol/L (-2.0-3.0)
[2025-03-10 09:58] LABS: Hematocrit 33.6 % (36.0-46.0); Hemoglobin 11.1 g/dL (12.2-16.2); Mean Corpuscular Hgb Conc. 33.1 g/dL (32.0-36.0); Mean Corpuscular Volume 96.8 fL (80.0-100.0); Red Blood Cells 3.47 10^6/uL (4.0-5.20); Red Cell Distribution Width 16.1 % (11.8-14.3); White Blood Cell 11.6 10^3/uL (4.4-10.8)
--- NOTE | 2025-03-10 09:58 | DVH ---
CT HEAD WITHOUT CONTRAST INDICATION: r/o stroke EXAM DATE: 03/10/2025 09:04 AM COMPARISON: CT HEAD WITHOUT CONTRAST on DOS: 11/12/23, CT HEAD WITHOUT CONTRAST on DOS: 09/10/23 RADIATION DOSE: CTDIvol: 64 mGy, DLP: 1094 mGy*cm PROCEDURE: CT scans of the head were obtained from the vertex to the skull base. Sagittal and coronal reconstructions were provided. All CT scans at this medical facility are performed using dose modulation techniques as appropriate t o a performed exam including the following: Automated exposure control was utilized; adjustment of th e MA and/or KV according to patient size; and use of iterative reconstruction technique. FINDINGS: There is sulcal and ventricular prominence. The brainshows normal morphology and chicas-whi te matter differentiation, without intracranial hemorrhage, extra-axial fluid collection, mass effect or acute large vessel infarct. The ventricles are normal in size. The basal cisterns are patent. The skull and visible facial bones are intact. The paranasal sinuses, mastoid air cells and middle ear c avities are well-aerated. The soft tissues of the scalp are unremarkable. IMPRESSION: No acute intracranial abnormality.
[2025-03-10 10:01] LABS: Platelet Count (auto) 779 10^3/uL (140-450)
[2025-03-10 10:02] LABS: Band Neutrophils % (manual) 0; Basophils % (manual) 0 (0.0-2.0); Blast Cells 0; Eosinophils % (manual) 0 (0-7); Metamyelocytes % 0; Myelocytes % 0; Promyelocytes % 0; Reactive Lymphocytes 0
[2025-03-10 10:12] LABS: Alanine Aminotransferase 22 U/L (7-40); Albumin 3.7 g/dL (3.2-4.8); Aspartate Aminotransferase 20 U/L (13-40); Calcium 9.1 mg/dL (8.7-10.4); Carbon Dioxide 23 mmol/L (20-31); Chloride 107 mmol/L (98-107); Total Protein 6.7 g/dL (5.7-8.2)
[2025-03-10 10:13] LABS: Alkaline Phosphatase 135 U/L (46-116); Bilirubin, Total 0.6 mg/dL (0.2-1.0); Glucose 296 mg/dL (74-106)
[2025-03-10 10:20] LABS: Lymphocytes % (manual) 5 (10.0-50.0); Monocytes % (manual) 4 (0-12)
[2025-03-10 10:21] LABS: Platelet Estimate Markedly Increased
--- NOTE | 2025-03-10 10:29 | DVH ---
CLINICAL INFORMATION: Stroke. TECHNIQUE: Axial CTA images of the head and neck were obtained after the uneventful administration o f 100 mL Omnipaque 350 IV contrast. Coronal and sagittal reformatted images and MIP images were obtai bennie, reviewed, and stored. Measurements of carotid stenosis are made per NASCET criteria. All CT scan s at this medical facility are performed using dose modulation techniques as appropriate to a perform ed exam including the following: Automated exposure control was utilized; adjustment of the MA and/or KV according to patient size; and use of iterative reconstruction technique. CTDIvol = not provided at the time of dictation. DLP = not provided at the time of dictation. COMPARISON: None FINDINGS: CTA HEAD: Posterior cerebral arteries, basilar artery, and intracranial segments of the distal verteb ral arteries are normal in caliber and course with no evidence of aneurysm, large vessel occlusion, s ignificant stenosis, or vascular malformation. The anterior and middle cerebral arteries and intracra nial segments of the distal internal carotid arteries are normal in caliber and course with no eviden ce of aneurysm, large vessel occlusion, significant stenosis, or vascular malformation. CTA NECK: Normal configuration of the aortic arch with patent origins of the brachiocephalic artery, left common carotid artery, and left subclavian artery. Subclavian arteries are patent with no signif icant stenosis. Moderate calcified plaque of the left carotid bifurcation mild calcified plaque of th e right carotid bifurcation without significant stenosis. The bilateral common carotid, internal leal tid, and external carotid arteries are otherwise patent with no significant stenosis or evidence of d issection. Vertebral arteries are patent with no significant stenosis or evidence of dissection. Bila teral thyroid nodules are seen, with the largest measuring up to 1.5 cm. There is prominent ground-gl ass opacity in the left upper lobe and superior segment of the left lower lobe. Partially visualized bilateral pleural effusions. Multilevel moderate disc space narrowing of the cervical spine with asso ciated endplate sclerosis and endplate spurring. Reversal of the normal cervical lordosis. Mild retro listhesis of C4 on C5. IMPRESSION: 1. CTA head demonstrates no evidence of large vessel occlusion, aneurysm, or significant stenosis. 2. CTA neck demonstrates no evidence of carotid or vertebral dissection or significant stenosis. 3. Thyroid nodules. Recommend nonemergent thyroid ultrasound to further evaluate, based on size, per ACR white paper on incidentally detected thyroid nodules. 4. Partially visualized bilateral pleural effusions and ground-glass opacities in the left lung, may be infectious or inflammatory in nature. 5. Additional findings as detailed above.
[2025-03-10 10:53] LABS: Anion Gap 7 (5-15); BUN/Creatinine Ratio 42.9 (10.0-20.0); Blood Urea Nitrogen 42 mg/dL (9-23); Sodium 137 mmol/L (136-145)
--- NOTE | 2025-03-10 11:35 | DVHPN2 ---
Reviewed: Care Plan, H&P, Labs, Medications, Previous Orders, Radiology Changes from previous H/P or p: No Changes Eyes: No Pain, No Vision change, No Conjunctivae inflammation, No Eyelid inflammation, No Other, No Redness ENT: No Ear pain, No Ear discharge, No Nose pain, No Nose discharge, No Nose congestion, No Mouth pain, No Mouth swelling, No Throat pain, No Throat swelling, No Other Cardiovascular: No Chest Pain, No Palpitations, No Orthopnea, No Paroxysmal Noc. Dyspnea, No Edema, No Lt Headedness, No Other Respiratory: Cough; No Dry; Shortness of breath, SOB with excertion; No Wheezing, No Hemoptysis, No Pleuritic Pain, No Sputum; Other (Congestion) Gastrointestinal: No Nausea, No Vomiting, No Abdominal Pain, No Diarrhea, No Constipation, No Melena, No Hematochezia, No Other Genitourinary: No Dysuria, No Frequency, No Incontinence, No Hematuria, No Retention, No Other Musculoskeletal: No other, No neck pain, No shoulder pain, No arm pain, No back pain, No hand pain, No leg pain, No foot pain Objective Vitals Vital Signs Date Time Temp Pulse Resp B/P (MAP) Pulse Ox O2 Delivery O2 Flow Rate FiO2 03/10/25 09:00 97.4 88 15 121/82 (95) 96 97.4 03/09/25 20:30 Oxymizer 2 N/A Intake/Output Intake and Output 03/10/25 07:00 Intake Total 1890 ml Output Total 851 ml Balance 1039 ml Intake Oral 840 ml IV Total 1050 ml Output Urine Total 450 ml Stool Total 401 ml Medications Current Medications Medications Dose Ordered Sig/Berhane Route Start Time Stop Time Status Last Admin Dose Admin Ondansetron HCl 4 mg Q4HP PRN IV 03/07/25 14:00 Nitroglycerin 0.4 mg Q5MINP PRN SL 03/07/25 14:00 Morphine Sulfate 2 mg Q30M PRN IV 03/07/25 14:00 Diagnostic Test (Pha) 1 strip ACHS 03/07/25 17:00 03/10/25 05:44 1 STRIP Insulin Human Regular ACHS SC 03/07/25 17:00 03/10/25 06:13 3 UNITS Dextrose 50 ml UD PRN IV 03/07/25 14:00 Magnesium Oxide 400 mg BID PO 03/07/25 22:00 03/09/25 22:55 400 MG Sodium Chloride 1,000 ml @ 75 mls/hr [id number] IV 03/07/25 15:15 03/09/25 22:43 75 MLS/HR Apixaban 5 mg BID PO 03/07/25 22:00 03/09/25 22:55 5 MG Hydralazine HCl 10 mg Q6HP PRN IV 03/07/25 15:30 Albuterol 2.5 mg Q4HPRN PRN NEB 03/07/25 15:30 03/08/25 20:24 2.5 MG Furosemide 20 mg DAILY IV 03/08/25 10:00 03/09/25 10:38 20 MG Pantoprazole Sodium 40 mg DAILY IV 03/08/25 10:00 03/09/25 10:30 40 MG Meropenem 50 ml @ 17 mls/hr Q12HR IV 03/07/25 16:09 03/09/25 22:43 17 MLS/HR Metoprolol Tartrate 12.5 mg BID PO 03/07/25 22:00 03/09/25 10:32 12.5 MG Ipratropium [place] 0.5 mg Q6HPRN PRN NEB 03/08/25 00:30 03/08/25 20:24 0.5 MG Methylprednisolone Sodium Succinate 40 mg Q8HR IV 03/08/25 14:00 03/10/25 05:58 40 MG Potassium Bicarbonate 25 meq DAILY PO 03/09/25 10:00 03/09/25 10:28 25 MEQ Laboratory Results Laboratory Tests 03/10/25 08:47 Chemistry Test 03/10/25 08:47 Albumin 3.7 g/dL (3.2-4.8) Calcium Level 9.1 mg/dL (8.7-10.4) Total Protein 6.7 g/dL (5.7-8.2) LFT Test 03/10/25 08:47 Alanine Aminotransferase (ALT) 22 U/L (7-40) Alkaline Phosphatase 135 U/L (46-116) H Aspartate Amino Transferase (AST) 20 U/L (13-40) Total Bilirubin 0.6 mg/dL (0.2-1.0) Urinalysis Test 03/07/25 10:00 Urine Color Yellow (Yellow) Urine Clarity Clear (Clear) Urine pH 6.0 (5.0-9.0) Urine Specific [place] 1.031 (1.001-1.035) Urine Protein 3+ (Negative) H Urine Ketones Trace (Negative) Urine Blood 2+ /uL (Negative) H Urine Nitrite Negative (Negative) Urine Bilirubin Negative (Negative) Urine Urobilinogen Normal mg/dL (Negative) Urine Leukocyte Esterase 1+ /uL (Negative) Urine RBC 26 /hpf (0 - 4) Urine Microscopic WBC 15 /HPF (0-5) H Urine Squamous Epithelial Cells Few /hpf (<5) Urine Bacteria None seen /hpf (None Seen) Urine Mucus Few (None Seen) Urine Glucose 3+ mg/dL (Normal) H Blood Gas Results Test 03/10/25 09:40 Arterial Blood pH 7.458 (7.350-7.450) FiO2 % 38.0 Microbiology Microbiology Date/Time Source Procedure Growth Status 03/08/25 18:33 Voided Urine Urine Culture - Preliminary Resulted 03/08/25 11:55 Nose MRSA Screen - Final Complete 03/07/25 10:35 Blood Blood Culture - Preliminary NO GROWTH AFTER 72 HOURS OF INCUBATION. Resulted Labs and/or images reviewed: Labs reviewed by me, Image(s) reviewed by me Assessment/Plan Assessment/Plan Acute altered mental status with a drooling and possible weakness in the upper extremity. Stat Neurology consult by Dr. Uriel Aguiar, CT head ordered which is negative CT head neck angiogram also negative. B12 TSH ammonia level ordered, acute stroke ruled out Acute hypoxic respiratory failure: Oxygen by nasal cannula Acute bilateral pneumonia: Meropenem albuterol Atrovent Solu-Medrol, consult for pulmonology Dr. Ledesma appreciated Right pleural effusion Diabetes: Insulin sliding scale AFib: Eliquis Acute UTI: Urine cultures negative, continue Meropenem Hypertension Chronic systolic congestive heart failure with preserved ejection fraction CT chest without contrast shows bilateral pneumonia mild pleural effusion COVID test NEGATIVE Flu test NEGATIVE Blood cultures negative Daughter and POA Bih [phone] at bedside Time spent 65 minutes Advanced care planning time 20 minutes Patient is full code Plan discussed with: Patient My Orders Orders - DAISY BARAHONA MD Procedure Category Date Status Time Pt Request For Service PT 03/09/25 Logged 12:40 Angio Head/Neck CT 03/10/25 Resulted 09:08 Stroke Assessment JOSEPH 03/10/25 In Process 09:34 Nursing Dysphagia ORDERS 03/10/25 Transmitted Screen 09:34 Npo (Nothing By DIET 03/10/25 Transmitted Mouth) Diet Lunch Date of Service: March 10, 2025 Billing Provider: DAISY BARAHONA MD Common Visit Codes: [id number] INP/OBS CARE(HIGH) DAISY BARAHONA MD March 10, 2025 11:35
--- NOTE | 2025-03-10 18:00 | DVHPN2 ---
Progress Note - Dictate Date Seen: March 10, 2025 Medical Necessity Reason Pt with a Central, PICC or Fol: No vital signs Vital Sign Date Time Temp Pulse Resp B/P (MAP) Pulse Ox O2 Delivery O2 Flow Rate FiO2 03/10/25 14:53 108 20 121/82 96 3.0 03/10/25 13:00 97.4 97.4 03/10/25 10:00 Oxymizer 32 32 Total Intake and Output 03/09/25 03/09/25 03/10/25 15:00 23:00 07:00 Intake Total 1400 ml 490 ml Output Total 451 ml 400 ml Balance 949 ml 90 ml medications Current Medications Medications Dose Ordered Sig/Berhane Route Start Time Stop Time Status Last Admin Dose Admin Ondansetron HCl 4 mg Q4HP PRN IV 03/07/25 14:00 Nitroglycerin 0.4 mg Q5MINP PRN SL 03/07/25 14:00 Morphine Sulfate 2 mg Q30M PRN IV 03/07/25 14:00 Diagnostic Test (Pha) 1 strip ACHS 03/07/25 17:00 03/10/25 11:30 1 STRIP Insulin Human Regular ACHS SC 03/07/25 17:00 03/10/25 12:15 6 UNITS Dextrose 50 ml UD PRN IV 03/07/25 14:00 Magnesium Oxide 400 mg BID PO 03/07/25 22:00 03/10/25 11:34 400 MG Sodium Chloride 1,000 ml @ 75 mls/hr [id number] IV 03/07/25 15:15 03/09/25 22:43 75 MLS/HR Apixaban 5 mg BID PO 03/07/25 22:00 03/10/25 11:34 5 MG Hydralazine HCl 10 mg Q6HP PRN IV 03/07/25 15:30 Albuterol 2.5 mg Q4HPRN PRN NEB 03/07/25 15:30 03/08/25 20:24 2.5 MG Furosemide 20 mg DAILY IV 03/08/25 10:00 03/10/25 11:39 20 MG Pantoprazole Sodium 40 mg DAILY IV 03/08/25 10:00 03/10/25 11:39 40 MG Meropenem 50 ml @ 17 mls/hr Q12HR IV 03/07/25 16:09 03/10/25 15:36 17 MLS/HR Metoprolol Tartrate 12.5 mg BID PO 03/07/25 22:00 03/10/25 11:33 12.5 MG Ipratropium [place] 0.5 mg Q6HPRN PRN NEB 03/08/25 00:30 03/08/25 20:24 0.5 MG Methylprednisolone Sodium Succinate 40 mg Q8HR IV 03/08/25 14:00 03/10/25 15:36 40 MG Potassium Bicarbonate 25 meq DAILY PO 03/09/25 10:00 03/10/25 10:00 25 MEQ laboratory and microbiology Laboratory Tests 03/10/25 08:47 Test 03/10/25 08:47 Range/Units Serum Glucose 296 H 74-106 mg/dL Assessment/Plan Impression Acute hypoxemic respiratory failure Bilateral pleural effusions Pneumonia Atelectasis Patient seen and examined Events Low oxygen requirements On 2 liters nasal cannula No acute events Labs and imaging reviewed Management Supplemental oxygen Titrate to maintain sats 90% or above Incentive spirometry Continue antibiotics F/u cultures Bronchodilators Monitor renal function Monitor electrolytes Supplement as needed F/u cardiology Home oxygen evaluation DVT prophylaxis Dietary Evaluation Review Comments: 1. liberalize to NCS & KELLY msoft diet 2. Ensure High Protein 240ml BID 3. Continue current POC Expected Outcomes/Goals: To meet >75% estimated needs Fu 3-5 days Plan discussed with: Patient ADRY BENTLEY MD March 10, 2025 18:00
[2025-03-11] VITALS (8 sets, daily range): BP systolic 122–145; BP diastolic 66–86; PULSE 71–79; RESP 14–16; TEMP 96.9–97.9; O2SAT 94–99
[2025-03-11] MEDS ORDERED: HYDROcodone-ACET 7.5/325MG TAB PO ONE (05:00)
[2025-03-11] MEDS ORDERED: AZIT500T66 PO (11:28)
--- NOTE | 2025-03-11 11:30 | DVHPN2 ---
Reviewed: Care Plan, H&P, Labs, Medications, Previous Orders, Radiology Changes from previous H/P or p: No Changes Eyes: No Pain, No Vision change, No Conjunctivae inflammation, No Eyelid inflammation, No Other, No Redness ENT: No Ear pain, No Ear discharge, No Nose pain, No Nose discharge, No Nose congestion, No Mouth pain, No Mouth swelling, No Throat pain, No Throat swelling, No Other Cardiovascular: No Chest Pain, No Palpitations, No Orthopnea, No Paroxysmal Noc. Dyspnea, No Edema, No Lt Headedness, No Other Respiratory: Cough; No Dry; Shortness of breath, SOB with excertion; No Wheezing, No Hemoptysis, No Pleuritic Pain, No Sputum; Other (Congestion) Gastrointestinal: No Nausea, No Vomiting, No Abdominal Pain, No Diarrhea, No Constipation, No Melena, No Hematochezia, No Other Genitourinary: No Dysuria, No Frequency, No Incontinence, No Hematuria, No Retention, No Other Musculoskeletal: No other, No neck pain, No shoulder pain, No arm pain, No back pain, No hand pain, No leg pain, No foot pain Objective Vitals Vital Signs Date Time Temp Pulse Resp B/P (MAP) Pulse Ox O2 Delivery O2 Flow Rate FiO2 03/11/25 09:59 126/86 03/11/25 09:58 76 03/11/25 09:00 97.6 14 99 97.6 03/11/25 07:06 Nasal Cannula 2.0 03/11/25 07:06 28 Intake/Output Intake and Output 03/11/25 07:00 Intake Total 800 ml Output Total 1201 ml Balance -401 ml Intake Oral 600 ml IV Total 100 ml Tube Feeding 100 ml Output Urine Total 1200 ml Stool Total 1 ml Medications Current Medications Medications Dose Ordered Sig/Berhane Route Start Time Stop Time Status Last Admin Dose Admin Ondansetron HCl 4 mg Q4HP PRN IV 03/07/25 14:00 Nitroglycerin 0.4 mg Q5MINP PRN SL 03/07/25 14:00 Morphine Sulfate 2 mg Q30M PRN IV 03/07/25 14:00 Diagnostic Test (Pha) 1 strip ACHS 03/07/25 17:00 03/10/25 23:01 1 STRIP Insulin Human Regular ACHS SC 03/07/25 17:00 03/10/25 23:21 4 UNITS Dextrose 50 ml UD PRN IV 03/07/25 14:00 Magnesium Oxide 400 mg BID PO 03/07/25 22:00 03/11/25 09:56 400 MG Sodium Chloride 1,000 ml @ 75 mls/hr [id number] IV 03/07/25 15:15 03/09/25 22:43 75 MLS/HR Apixaban 5 mg BID PO 03/07/25 22:00 03/11/25 09:57 5 MG Hydralazine HCl 10 mg Q6HP PRN IV 03/07/25 15:30 Albuterol 2.5 mg Q4HPRN PRN NEB 03/07/25 15:30 03/08/25 20:24 2.5 MG Furosemide 20 mg DAILY IV 03/08/25 10:00 03/11/25 09:59 20 MG Pantoprazole Sodium 40 mg DAILY IV 03/08/25 10:00 03/11/25 09:58 40 MG Meropenem 50 ml @ 17 mls/hr Q12HR IV 03/07/25 16:09 03/11/25 10:17 17 MLS/HR Metoprolol Tartrate 12.5 mg BID PO 03/07/25 22:00 03/11/25 09:58 12.5 MG Ipratropium [place] 0.5 mg Q6HPRN PRN NEB 03/08/25 00:30 03/08/25 20:24 0.5 MG Methylprednisolone Sodium Succinate 40 mg Q8HR IV 03/08/25 14:00 03/11/25 05:57 40 MG Potassium Bicarbonate 25 meq DAILY PO 03/09/25 10:00 03/11/25 09:58 25 MEQ Laboratory Results Laboratory Tests 03/10/25 08:47 Urinalysis Test 03/07/25 10:00 Urine Color Yellow (Yellow) Urine Clarity Clear (Clear) Urine pH 6.0 (5.0-9.0) Urine Specific [place] 1.031 (1.001-1.035) Urine Protein 3+ (Negative) H Urine Ketones Trace (Negative) Urine Blood 2+ /uL (Negative) H Urine Nitrite Negative (Negative) Urine Bilirubin Negative (Negative) Urine Urobilinogen Normal mg/dL (Negative) Urine Leukocyte Esterase 1+ /uL (Negative) Urine RBC 26 /hpf (0 - 4) Urine Microscopic WBC 15 /HPF (0-5) H Urine Squamous Epithelial Cells Few /hpf (<5) Urine Bacteria None seen /hpf (None Seen) Urine Mucus Few (None Seen) Urine Glucose 3+ mg/dL (Normal) H Microbiology Microbiology Date/Time Source Procedure Growth Status 03/08/25 18:33 Voided Urine Urine Culture - Final Complete 03/08/25 11:55 Nose MRSA Screen - Final Complete 03/07/25 10:35 Blood Blood Culture - Preliminary NO GROWTH AFTER 72 HOURS OF INCUBATION. Resulted Assessment/Plan Assessment/Plan Acute altered mental status with a drooling and possible weakness in the upper extremity. Stat Neurology consult by Dr. Uriel Aguiar, CT head ordered which is negative CT head neck angiogram also negative. B12 TSH ammonia level ordered, acute stroke ruled out Acute hypoxic respiratory failure: Oxygen by nasal cannula Acute bilateral pneumonia: Meropenem albuterol Atrovent Solu-Medrol, consult for pulmonology Dr. Ledesma appreciated Mild Right pleural effusion Diabetes: Insulin sliding scale AFib: Eliquis Acute UTI: Urine cultures negative, continue Meropenem Hypertension Chronic systolic congestive heart failure with preserved ejection fraction CT chest without contrast shows bilateral pneumonia mild pleural effusion COVID test NEGATIVE Flu test NEGATIVE Blood cultures negative Daughter and POA [facility] [phone] at bedside The daughter requesting to discharge the patient home on p.o. antibiotics, she refused intravenous antibiotics Plan discussed with: Patient Date of Service: March 11, 2025 Billing Provider: DAISY BARAHONA MD Common Visit Codes: [id number] INP/OBS CARE(HIGH) DAISY BARAHONA MD March 11, 2025 11:30
--- NOTE | 2025-03-11 11:35 | DVHDS2 ---
Discharge Summary Date of Admission March 07, 2025 at 13:56 Date of Discharge: March 11, 2025 Admitting Diagnosis Shortness of breath Wounds: None Labs/Diagnostic Data: Laboratory Results Test 03/10/25 20:47 03/10/25 11:45 03/10/25 09:40 03/10/25 08:47 POC Glucose 227 mg/dl (70-106) Ammonia < 10 umol/L (11-32) Blood Gas Specimen Type Arterial Blood Gas Sample Site Right brachial Blood Gas Patient Temperature 37.0 Arterial Blood Date Drawn [id number] Arterial Blood pH 7.458 (7.350-7.450) Arterial Blood Partial Pressure CO2 31.1 mmHg (32.0-45.0) Arterial Blood Partial Pressure O2 66.8 mmHg (83.0-108.0) Arterial Blood HCO3 21.5 mmol/L (21.0-28.0) Arterial Blood Oxygen Saturation 91.6 % (94.0-98.0) Arterial Blood Base Excess -1.6 mmol/L (-2.0-3.0) Arterial Blood Oxyhemoglobin 90.9 % (94.0-98.0) Arterial Blood Carboxyhemoglobin 0.3 % (0.5-1.5) Arterial Blood Methemoglobin 0.5 % (0.0-1.5) Denis Test N/a Blood Gas Total Hemoglobin 11.00 g/dL (12.0-16.0) Blood Gas Liter Flow 3.00 Blood Gas Modality Oxymizer FiO2 % 38.0 White Blood Count 11.6 10^3/uL (4.4-10.8) Red Blood Count 3.47 10^6/uL (4.0-5.20) Hemoglobin 11.1 g/dL (12.2-16.2) Hematocrit 33.6 % (36.0-46.0) Mean Corpuscular Volume 96.8 fL (80.0-100.0) Mean Corpuscular Hemoglobin 32.0 pg (28.0-32.0) Mean Corpuscular Hemoglobin Concent 33.1 g/dL (32.0-36.0) Red Cell Distribution Width 16.1 % (11.8-14.3) Platelet Count 779 10^3/uL (140-450) Mean Platelet Volume 8.0 fL (6.9-10.8) Neutrophils (%) (Auto) % (37.0-80.0) Lymphocytes (%) (Auto) % (10.0-50.0) Monocytes (%) (Auto) % (0.0-12.0) Basophils (%) (Auto) % (0.0-2.0) Neutrophils # (Auto) 10 ^3/uL (1.6-8.6) Lymphocytes # (Auto) 10 ^3/uL (0.4-5.4) Monocytes # (Auto) 10 ^3/uL (0-1.3) Differential Total Cells Counted 100.0 (100) Neutrophils % (Manual) 91 (37.0-80.0) Band Neutrophils % (Manual) 0 Lymphocytes % (Manual) 5 (10.0-50.0) Monocytes % (Manual) 4 (0-12) Eosinophils % (Manual) 0 (0-7) Basophils % (Manual) 0 (0.0-2.0) Metamyelocytes % (manual) 0 Myelocytes % (Manual) 0 Promyelocytes % (Manual) 0 Blast Cells % (Manual) 0 Reactive Lymphocytes 0 Platelet Estimate Markedly increased Sodium Level 137 mmol/L (136-145) Potassium Level 5.0 mmol/L (3.5-5.1) Chloride Level 107 mmol/L (98-107) Carbon Dioxide Level 23 mmol/L (20-31) Anion Gap 7 (5-15) Blood Urea Nitrogen 42 mg/dL (9-23) Creatinine 0.98 mg/dL (0.550-1.02) Glomerular Filtration Rate Calc 59 mL/min (>90) BUN/Creatinine Ratio 42.9 (10.0-20.0) Serum Glucose 296 mg/dL (74-106) Calcium Level 9.1 mg/dL (8.7-10.4) Total Bilirubin 0.6 mg/dL (0.2-1.0) Aspartate Amino Transferase (AST) 20 U/L (13-40) Alanine Aminotransferase (ALT) 22 U/L (7-40) Alkaline Phosphatase 135 U/L (46-116) Total Protein 6.7 g/dL (5.7-8.2) Albumin 3.7 g/dL (3.2-4.8) Vitamin B12 Level 372 pg/mL (211-911) Thyroid Stimulating Hormone (TSH) 0.56 uIU/mL (0.55-4.78) Test 03/08/25 11:55 03/08/25 04:40 03/07/25 13:23 03/07/25 12:41 Influenza Type A Antigen Negative (Negative) Influenza Type B Antigen Negative (Negative) SARS-CoV-2 Antigen (Rapid) Negative (NEGATIVE) Eosinophils (%) (Auto) 0.0 % (0.0-7.0) Eosinophils # (Auto) 0 10 ^3/uL (0-0.8) Basophils # (Auto) 0 10 ^3/uL (0-0.2) Nucleated Red Blood Cells 0.0 % Magnesium Level 2.4 mg/dL (1.6-2.6) Troponin I High Sensitivity 10 ng/L (</=34) Lactic Acid Level 2.0 mmol/L (0.4-2.0) Test 03/07/25 10:35 03/07/25 10:00 B-Type Natriuretic Peptide 628.85 pg/mL (0-100) Urine Color Yellow (Yellow) Urine Clarity Clear (Clear) Urine pH 6.0 (5.0-9.0) Urine Specific [place] 1.031 (1.001-1.035) Urine Protein 3+ (Negative) Urine Ketones Trace (Negative) Urine Blood 2+ /uL (Negative) Urine Nitrite Negative (Negative) Urine Bilirubin Negative (Negative) Urine Urobilinogen Normal mg/dL (Negative) Urine Leukocyte Esterase 1+ /uL (Negative) Urine RBC 26 /hpf (0 - 4) Urine Microscopic WBC 15 /HPF (0-5) Urine Squamous Epithelial Cells Few /hpf (<5) Urine Bacteria None seen /hpf (None Seen) Urine Mucus Few (None Seen) Urine Glucose 3+ mg/dL (Normal) Other Laboratory Tests 03/10/25 08:47 Brief Hx & Hospital Course: 9-year-old female with a history of hypertension AFib on Eliquis chronic congestive heart failure came in for shortness of breaths found to have community-acquired pneumonia treated with the meropenem albuterol Atrovent Solu- Medrol consult by pulmonology Dr. Pipe Angulo mild right pleural effusion. Patient has UTI urine cultures negative Mirapex was continued. CT chest without contrast showed bilateral pneumonia with a mild pleural effusion COVID negative flu test negative blood cultures negative. Patient had a episode of drooling from the mouth mild upper extremity weakness Neurology consult placed for tele neurologist CT head ordered which is negative CT head and neck angiogram also negative. Stroke was ruled out. Advised the daughter that the patient needs meropenem IV for two more weeks for severe left-sided pneumonia but she refused and wants the patient to be discharged home on p.o. antibiotics. Prescription for azithromycin transmitted to pharmacy ABG ordered to see if she qualifies for home oxygen. Home oxygen will be supplied if she qualifies for home oxygen. General condition poor but stable at the time of discharge. Consults/Reason for consult Pulmonology Dr. Godwin Neurology Operations or Procedures CT chest Carotid ultrasound CT head Condition at Discharge: Poor Final Diagnosis/Problems List Acute altered mental status with a drooling and possible weakness in the upper extremity. Stat Neurology consult by Dr. Uriel Aguiar, CT head ordered which is negative CT head neck angiogram also negative. B12 TSH ammonia level ordered, acute stroke ruled out Acute hypoxic respiratory failure: Oxygen by nasal cannula Acute bilateral pneumonia: Meropenem albuterol Atrovent Solu-Medrol, consult for pulmonology Dr. Ledesma appreciated Mild Right pleural effusion Diabetes: Insulin sliding scale AFib: Eliquis Acute UTI: Urine cultures negative, continue Meropenem Hypertension Chronic systolic congestive heart failure with preserved ejection fraction CT chest without contrast shows bilateral pneumonia mild pleural effusion COVID test NEGATIVE Flu test NEGATIVE Blood cultures negative Discharge Disposition: Home Discharge Instruct/Medications Diet: Cardiac 2g Na,low cholest Activity: Light activity Follow Up/Referral: Follow up with the primary Dr Raman all previous home meds Medications: Azithromycin Transmitted to pharmacy 39 (Time taken for discharge summary 39 minutes) Discharge Statement: "Patient was advised to return to the ER or call 911 if any headaches, dizziness, shortness of breath, chest pain, abdominal pain, bleeding, fevers, or worsening of medical condition. Patient was counseled about treatment plan, medications, possible side effects, patientverbalized understanding. All questions were answered to the best of my ability. This discharge took greater then 30 minutes in planning, reviewing documentation, counseling the patient, and discussing with other team members." ASSESSMENT ASSESSMENT Hospital Course Marginal improvement Assessment Acute altered mental status with a drooling and possible weakness in the upper extremity. Stat Neurology consult by Dr. Uriel Aguiar, CT head ordered which is negative CT head neck angiogram also negative. B12 TSH ammonia level ordered, acute stroke ruled out Acute hypoxic respiratory failure: Oxygen by nasal cannula Acute bilateral pneumonia: Meropenem albuterol Atrovent Solu-Medrol, consult for pulmonology Dr. Ledesma appreciated Mild Right pleural effusion Diabetes: Insulin sliding scale AFib: Eliquis Acute UTI: Urine cultures negative, continue Meropenem Hypertension Chronic systolic congestive heart failure with preserved ejection fraction CT chest without contrast shows bilateral pneumonia mild pleural effusion COVID test NEGATIVE Flu test NEGATIVE Blood cultures negative Date of Service: March 11, 2025 Billing Provider: DAISY BARAHONA MD Common Visit Codes: [id number] DISCH DAY >30min DAISY BARAHONA MD March 11, 2025 11:35
--- NOTE | 2025-03-11 12:37 | DVHPN2 ---
Progress Note - Dictate Date Seen: March 11, 2025 Medical Necessity Reason Pt with a Central, PICC or Fol: No vital signs Vital Sign Date Time Temp Pulse Resp B/P (MAP) Pulse Ox O2 Delivery O2 Flow Rate FiO2 03/11/25 10:58 82 03/11/25 09:59 126/86 03/11/25 09:00 97.6 14 99 97.6 03/11/25 07:06 Nasal Cannula 2.0 03/11/25 07:06 28 Total Intake and Output 03/10/25 03/10/25 03/11/25 15:00 23:00 07:00 Intake Total 50 ml 750 ml 0 ml Output Total 1201 ml Balance 50 ml -451 ml 0 ml medications Current Medications Medications Dose Ordered Sig/Berhane Route Start Time Stop Time Status Last Admin Dose Admin Ondansetron HCl 4 mg Q4HP PRN IV 03/07/25 14:00 Nitroglycerin 0.4 mg Q5MINP PRN SL 03/07/25 14:00 Morphine Sulfate 2 mg Q30M PRN IV 03/07/25 14:00 Diagnostic Test (Pha) 1 strip ACHS 03/07/25 17:00 03/11/25 11:52 1 STRIP Insulin Human Regular ACHS SC 03/07/25 17:00 03/11/25 12:10 6 UNITS Dextrose 50 ml UD PRN IV 03/07/25 14:00 Magnesium Oxide 400 mg BID PO 03/07/25 22:00 03/11/25 09:56 400 MG Sodium Chloride 1,000 ml @ 75 mls/hr [id number] IV 03/07/25 15:15 03/09/25 22:43 75 MLS/HR Apixaban 5 mg BID PO 03/07/25 22:00 03/11/25 09:57 5 MG Hydralazine HCl 10 mg Q6HP PRN IV 03/07/25 15:30 Albuterol 2.5 mg Q4HPRN PRN NEB 03/07/25 15:30 03/08/25 20:24 2.5 MG Furosemide 20 mg DAILY IV 03/08/25 10:00 03/11/25 09:59 20 MG Pantoprazole Sodium 40 mg DAILY IV 03/08/25 10:00 03/11/25 09:58 40 MG Meropenem 50 ml @ 17 mls/hr Q12HR IV 03/07/25 16:09 03/11/25 10:17 17 MLS/HR Metoprolol Tartrate 12.5 mg BID PO 03/07/25 22:00 03/11/25 09:58 12.5 MG Ipratropium [place] 0.5 mg Q6HPRN PRN NEB 03/08/25 00:30 03/08/25 20:24 0.5 MG Methylprednisolone Sodium Succinate 40 mg Q8HR IV 03/08/25 14:00 03/11/25 05:57 40 MG Potassium Bicarbonate 25 meq DAILY PO 03/09/25 10:00 03/11/25 09:58 25 MEQ laboratory and microbiology Laboratory Tests 03/10/25 08:47 Test 03/10/25 08:47 Range/Units Serum Glucose 296 H 74-106 mg/dL Assessment/Plan Impression Acute hypoxemic respiratory failure Bilateral pleural effusions Pneumonia Atelectasis Patient seen and examined Events Low oxygen requirements On 2 liters nasal cannula No acute events Labs and imaging reviewed Management Supplemental oxygen Titrate to maintain sats 90% or above Incentive spirometry Continue antibiotics F/u cultures Bronchodilators Monitor renal function Monitor electrolytes Supplement as needed F/u cardiology Home oxygen evaluation DVT prophylaxis Dietary Evaluation Review Comments: 1. liberalize to NCS & KELLY msoft diet 2. Ensure High Protein 240ml BID 3. Continue current POC Expected Outcomes/Goals: To meet >75% estimated needs Fu 3-5 days Plan discussed with: Other (rn) ADRY BENTLEY MD March 11, 2025 12:37
[2025-03-11 12:39] LABS: Base Excess 3.9 mmol/L (-2.0-3.0)
[2025-03-11 13:27] LABS: Base Excess 4.5 mmol/L (-2.0-3.0)
--- NOTE | 2025-03-11 14:16 | ECG ---
[facility] Test Date: 2025-03-07 Test Time: 10:30:47 Pat Name: TREVOR HIDALGO Department: ED Room: [facility]3T A Gender: F Respiratory Care Technician: MING : 1945 Requested By: AKHIL ARCE Order Number: [id number] Reading MD: Johan Contreras Measurements Intervals [place] Rate: 149 P: 0 NV: 0 QRS: 222 QRSD: 162 T: 210 QT: 386 QTc: 608 Interpretive Statements Severe baseline artifact, no further rhythm analysis attempted Baseline wander in lead(s) I,II,aVR,V1,V2 Electronically Signed On 03-14-2025 21:42:17 PDT by Johan Contreras Please click the below link to view image of tracing.
== END 2025-03-11 18:45 | disposition home or self-care (01) | DRG 871 ==
LOC: ER 09:46 → OVERFLOW 13:56 → TELE-WESTW 18:36
PROVIDERS: ADMIT Family Medicine; ATTEND Family Medicine
DX: A41.59 Other Gram-negative sepsis (principal); G93.41 Metabolic encephalopathy; J15.69 Pneumonia due to other Gram-negative bacteria; J96.01 Acute respiratory failure with hypoxia; J15.9 Unspecified bacterial pneumonia; N39.0 Urinary tract infection, site not specified; I48.19 Other persistent atrial fibrillation; I50.22 Chronic systolic (congestive) heart failure; K21.9 Gastro-esophageal reflux disease without esophagitis; I11.0 Hypertensive heart disease with heart failure; E11.9 Type 2 diabetes mellitus without complications; E83.42 Hypomagnesemia; Z83.3 Family history of diabetes mellitus; Z79.01 Long term (current) use of anticoagulants; Z82.49 Family history of ischemic heart disease and other diseases of the circulatory system; Z87.11 Personal history of peptic ulcer disease; Z79.899 Other long term (current) drug therapy; Z79.84 Long term (current) use of oral hypoglycemic drugs
CPT/HCPCS: 36415; 36600; 70450; 70496; 70498; 71045; 71260; 80048; 80053; 81001; 82140; 82607; 82805; 82962; 83605; 83735; 83880; 84443; 84484; 85007; 85025; 85027; 87040; 87081; 87086; 87426; 87804; 93005; 94640; 96361; 96365; 97110; 97116; 97163; 97530; 99291; G0378; J1815; J1956; J2185; J2405; J2470; J3490